=== PATIENT | female | born 1945 | race Caucasian/White ===

== ENCOUNTER 2022-11-02 05:44 | Inpatient (IN) | payer MEDICARE, BC ==
--- NOTE | 2022-11-02 06:29 | ED ---
Abdominal Pain HPI - General Chief Complaint: Abdominal Pain Stated Complaint: Kidney stones Time Seen by Provider: 11/02/22 05:51 Source: patient, EMS, RN notes reviewed Mode of arrival: EMS Limitations: no limitations - History of Present Illness Initial Comments: 77-year-old female presents emergency department via EMS from [facility] a transfer chief complaint of flank pain. Patient states that she started last night with flank pain states she does get cold she came very nauseated increasing pain. Patient states that she was shaking fever states that she cannot get warm. Patient present to [facility] was patient is found to have 3 mm UVJ stone patient is found to have temporal 100.5 and was leukopenic. Patient has no current chemotherapy treatment. Patient did have COVID-19 testing which was negative patient states she has history of Pulmonary fibrosis denies any cough. Patient states she does feel improved at this time pain is improved nausea is improving patient did receive IV antibiotics. - Related Data Allergies Allergy/AdvReac Type Severity Reaction Status Date / Time Penicillins Allergy Unknown Verified 11/02/22 05:57 cefaclor [From Ceclor] AdvReac Unknown Verified 11/02/22 05:58 Review of Systems ROS Statement: Those systems with pertinent positive or pertinent negative responses have been documented in the HPI. ROS Other: All systems not noted in ROS Statement are negative. Past Medical History Past Medical History: Atrial Fibrillation, Chest Pain / Angina, Diabetes Mellitus, Hyperlipidemia, Hypertension, Osteoarthritis (OA), Renal Disease, Sleep Apnea/CPAP/BIPAP Additional Past Medical History / Comment(s): pulmonary hypertension, History of Any Multi-Drug Resistant Organisms: None Reported Past Surgical History: Ablation, Hysterectomy, Pacemaker Past Psychological History: No Psychological Hx Reported Smoking Status: Never smoker Past Alcohol Use History: None Reported Past Drug Use History: None Reported General Exam Limitations: no limitations General appearance: alert, in no apparent distress Head exam: Present: atraumatic, normocephalic, normal inspection Eye exam: Present: normal appearance, PERRL, EOMI. Absent: scleral icterus, conjunctival injection, periorbital swelling ENT exam: Present: normal exam, normal oropharynx, mucous membranes moist Neck exam: Present: normal inspection, full ROM. Absent: tenderness, meningismus, lymphadenopathy Respiratory exam: Present: normal lung sounds bilaterally. Absent: respiratory distress, wheezes, rales, rhonchi, stridor Cardiovascular Exam: Present: regular rate, normal rhythm, normal heart sounds. Absent: systolic murmur, diastolic murmur, rubs, gallop, clicks GI/Abdominal exam: Present: soft, normal bowel sounds. Absent: distended, tenderness, guarding, rebound, rigid Back exam: Absent: CVA tenderness (R), CVA tenderness (L) Neurological exam: Present: alert Skin exam: Present: warm, dry, intact, normal color. Absent: rash Course Vital Signs 11/02/22 11/02/22 11/02/22 05:47 05:59 06:07 Temperature 98.5 F Pulse Rate 85 Respiratory 16 Rate Blood Pressure 105/74 O2 Sat by Pulse 95 Oximetry 11/02/22 11/02/22 11/02/22 06:22 06:39 07:08 Temperature Pulse Rate 79 Respiratory 21 Rate Blood Pressure 99/43 107/46 100/47 O2 Sat by Pulse 96 94 L Oximetry Medical Decision Making - Medical Decision Making Was pt. sent in by a medical professional or institution (, PA, TALCER, urgent care, hospital, or mcfp...) When possible be specific @ -Physician at [facility] Did you speak to anyone other than the patient for history (EMS, parent, family, police, friend...)? What history was obtained from this source @ -EMS, DR Reyes at [place] Did you review nursing and triage notes (agree or disagree)? Why? @ -I reviewed and agree with nursing and triage notes Were old charts reviewed (outside hosp., previous admission, EMS record, old EKG, old radiological studies, urgent care reports/EKG's, mcfp records)? Report findings @ -Review transfer packet Differential Diagnosis (chest pain, altered mental status, abdominal pain women, abdominal pain men, vaginal bleeding, weakness, fever, dyspnea, syncope, headache, dizziness, GI bleed, back pain, seizure, CVA, palpatations, mental health)? @ -Kidney stone, septic stone, viral fever, leukopenia, UTI, EKG interpreted by me (3pts min.). @ -none X-rays interpreted by me (1pt min.). @ -None done CT interpreted by me (1pt min.). @ -Outside CT from [place] shows a 3 mm UVJ stone U/S interpreted by me (1pt. min.). @ -None done What testing was considered but not performed or refused? (CT, X-rays, U/S, labs)? Why? @ -None What meds were considered but not given or refused? Why? @ -None Did you discuss the management of the patient with other professionals (professionals i.e. , PA, TALCER, lab, RT, psych nurse, community mental health social worker, sports lawyer, teacher, field crop technical officer, showcase maker)? Give summary @ -Dr. Langley hospitalist, urology Was smoking cessation discussed for >3mins.? @ -No Was critical care preformed (if so, how long)? @ -No Were there social determinants of health that impacted care today? How? (Homelessness, low income, unemployed, alcoholism, drug addiction, transportation, low edu. Level, literacy, decrease access to med. care, mcfp, rehab)? @ -No Was there de-escalation of care discussed even if they declined (Discuss DNR or withdrawal of care, Hospice)? DNR status @ -No What co-morbidities impacted this encounter? (DM, HTN, Smoking, COPD, CAD, Cancer, CVA, ARF, Chemo, Hep., AIDS, mental health diagnosis, sleep apnea, morbid obesity)? @ -Hypertension A. fib, diabetes Was patient admitted / discharged? Hospital course, mention meds given and route, prescriptions, significant lab abnormalities, going to OR and other pertinent info. @ -Admitted - patient was transferred from Hospital. Patient does have noted leukopenia, was febrile with evidence of kidney stone. Patient did have bacteria noted. Patient was given Levaquin will be admitted patient's had 2 sets of blood cultures prior arrival. Patient will be admitted to hospitalist with consultation urology Undiagnosed new problem with uncertain prognosis? @ -No Drug Therapy requiring intensive monitoring for toxicity (Heparin, Nitro, Insulin, Cardizem)? @ -No Were any procedures done? @ -No Diagnosis/symptom? @ -Fever Acute, or Chronic, or Acute on Chronic? @ acute Uncomplicated (without systemic symptoms) or Complicated (systemic symptoms)? @ -Uncomplicated Side effects of treatment? @ -No Exacerbation, Progression, or Severe Exacerbation? @ -No Poses a threat to life or bodily function? How? (Chest pain, USA, VT, pneumonia, PE, COPD, DKA, ARF, appy, cholecystitis, CVA, Diverticulitis, Homicidal, Suicidal, threat to staff... and all critical care pts) @ -No Diagnosis/symptom? @ -Ureter calculi Acute, or Chronic, or Acute on Chronic? @ -Acute Uncomplicated (without systemic symptoms) or Complicated (systemic symptoms)? @ -Uncomplicated Side effects of treatment? @ -none Exacerbation, Progression, or Severe Exacerbation @ -no Poses a threat to life or bodily function? @ -no Diagnosis/symptom? @ -Leukopenia Acute, or Chronic, or Acute on Chronic? @ -acute Uncomplicated (without systemic symptoms) or Complicated (systemic symptoms)? @ -complicated Side effects of treatment? @ -none Exacerbation, Progression, or Severe Exacerbation] @ -no Poses a threat to life or bodily function? @ -no Disposition Clinical Impression: Ureteral calculi, Fever, Leukopenia Disposition: ADMITTED IP TO THIS [facility] Condition: Poor Time of Disposition: 06:39
[2022-11-02] MEDS ORDERED: ACETAMINOPHEN TAB 325 MG TAB PO PRN (06:40)
[2022-11-02] MEDS ORDERED: ONDANSETRON 4 MG/2 ML VIAL IVP PRN (06:40)
[2022-11-02] MEDS ORDERED: NALOXONE 0.4 MG/ML 1 ML VIAL IV PRN (06:40)
[2022-11-02] MEDS: SODIUM CHLORIDE 0.9% 1,000 ML IV SCH ×2 (06:57→22:08)
[2022-11-02] MEDS ORDERED: LIDOCAINE 1% (10MG/ML) FOR IV START INTRADERMA PRN (08:24)
[2022-11-02 10:47] LABS: HGB 11.2 gm/dL (11.4-16.0); MCH 31.7 pg (25.0-35.0); MCV 96.1 fL (80.0-100.0); Mean Platelet Volume 9.1; RBC 3.54 m/uL (3.80-5.40); RDW 14.3 % (11.5-15.5); WBC 7.9 k/uL (3.8-10.6)
[2022-11-02 10:56] LABS: ALT 85 U/L (4-34); AST 160 U/L (14-36); African American GFR (CKD) 41 (>60 ml/min/1.73 sqM); Albumin 2.9 g/dL (3.5-5.0); Albumin/Globulin Ratio 1.1; Alkaline Phosphatase 43 U/L (38-126); Anion Gap 3 mmol/L; Blood Urea Nitrogen 24 mg/dL (7-17); Calcium 7.9 mg/dL (8.4-10.2); Carbon Dioxide 26 mmol/L (22-30); Chloride 109 mmol/L (98-107); Globulin 2.6 g/dL; Glucose 122 mg/dL (74-99); Non-African American GFR(CKD) 35 (>60 ml/min/1.73 sqM); Potassium 4.1 mmol/L (3.5-5.1); Sodium 138 mmol/L (137-145); Total Protein 5.5 g/dL (6.3-8.2)
[2022-11-02 11:05] LABS: Glucose,Whole Blood 138 mg/dL (70-110)
[2022-11-02] MEDS ORDERED: PROPOFOL 10 MG/ML 20 ML VIAL IV ONE (11:06)
[2022-11-02] MEDS ORDERED: LACTATED RINGERS 1,000 ML IV ONE (11:06)
[2022-11-02] MEDS ORDERED: LIDOCAINE 2% INJ 20 MG/ML (2 ML VIAL) ONE (11:06)
[2022-11-02] MEDS ORDERED: SUCCINYLCHOLINE CHLORIDE 200 MG/10 ML VIAL IV ONE (11:06)
--- NOTE | 2022-11-02 11:08 | P.GSCN ---
History of Present Illness Consult date: 11/02/22 Reason for Consult: UTI, left ureteral calculus Requesting physician: Bigg Langley History of present illness: The patient is a 77-year-old white female with an unremarkable urologic history. She believes she was treated for a UTI approximately 4 years ago. She denies any prior history of urolithiasis. Yesterday evening, she experienced acute onset of left lower back and flank pain, associated with fever and chills. She presented to the ER, and her evaluation revealed a UTI, leukopenia, and an obstructing 3 mm calculus at the left ureterovesical junction. CT scan also showed left renal calculi measuring up to 6 mm in size. She was transferred to [facility] for further management. Review of Systems - Constitutional Reports chills, Reports fever - Gastrointestinal Reports nausea, Denies vomiting - Genitourinary Genitourinary: Reports flank pain, Reports kidney stones, Denies dysuria, Denies hematuria Past Medical History Past Medical History: Atrial Fibrillation, Chest Pain / Angina, Diabetes Mellitus, Hyperlipidemia, Hypertension, Osteoarthritis (OA), Renal Disease, Sleep Apnea/CPAP/BIPAP Additional Past Medical History / Comment(s): pulmonary hypertension, History of Any Multi-Drug Resistant Organisms: None Reported Past Surgical History: Ablation, Hysterectomy, Pacemaker Type of Cardiac Device: Permanent Pacemaker Device Placement Date:: 2003 Past Psychological History: No Psychological Hx Reported Smoking Status: Never smoker Past Alcohol Use History: None Reported Past Drug Use History: None Reported - Past Family History Father Family Medical History: Asthma, Pneumonia Mother Family Medical History: Cancer Additional Family Medical History / Comment(s): alive 99, Skin CA Medications and Allergies Allergies Allergy/AdvReac Type Severity Reaction Status Date / Time Penicillins Allergy Unknown Verified 11/02/22 05:57 cefaclor [From Ceclor] AdvReac Unknown Verified 11/02/22 05:58 Surgical - Exam Vital Signs Temp Pulse Resp 98.5 F 85 16 11/02/22 05:47 11/02/22 05:47 11/02/22 05:47 - General well developed, well nourished, no distress - Respiratory normal respiratory effort - Abdomen Abdomen: soft, non tender, no guarding, no rigid, no rebound - Psychiatric oriented to time, oriented to person, oriented to place, speech is normal, memory intact Results - Labs 11/02/22 10:28 Abnormal Lab Results - Last 24 Hours (Table) 11/02/22 Range/Units 10:28 Chloride 109 H (98-107) mmol/L BUN 24 H (7-17) mg/dL Creatinine 1.44 H (0.52-1.04) mg/dL Glucose 122 H (74-99) mg/dL Calcium 7.9 L (8.4-10.2) mg/dL AST 160 H (14-36) U/L ALT 85 H (4-34) U/L Total Protein 5.5 L (6.3-8.2) g/dL Albumin 2.9 L (3.5-5.0) g/dL Diabetes panel 11/02/22 Range/Units 10:28 Sodium 138 (137-145) mmol/L Potassium 4.1 (3.5-5.1) mmol/L Chloride 109 H (98-107) mmol/L Carbon Dioxide 26 (22-30) mmol/L BUN 24 H (7-17) mg/dL Creatinine 1.44 H (0.52-1.04) mg/dL Glucose 122 H (74-99) mg/dL Calcium 7.9 L (8.4-10.2) mg/dL AST 160 H (14-36) U/L ALT 85 H (4-34) U/L Alkaline Phosphatase 43 (38-126) U/L Total Protein 5.5 L (6.3-8.2) g/dL Albumin 2.9 L (3.5-5.0) g/dL Calcium panel 11/02/22 Range/Units 10:28 Calcium 7.9 L (8.4-10.2) mg/dL Albumin 2.9 L (3.5-5.0) g/dL Pituitary panel 11/02/22 Range/Units 10:28 Sodium 138 (137-145) mmol/L Potassium 4.1 (3.5-5.1) mmol/L Chloride 109 H (98-107) mmol/L Carbon Dioxide 26 (22-30) mmol/L BUN 24 H (7-17) mg/dL Creatinine 1.44 H (0.52-1.04) mg/dL Glucose 122 H (74-99) mg/dL Calcium 7.9 L (8.4-10.2) mg/dL Adrenal panel 11/02/22 Range/Units 10:28 Sodium 138 (137-145) mmol/L Potassium 4.1 (3.5-5.1) mmol/L Chloride 109 H (98-107) mmol/L Carbon Dioxide 26 (22-30) mmol/L BUN 24 H (7-17) mg/dL Creatinine 1.44 H (0.52-1.04) mg/dL Glucose 122 H (74-99) mg/dL Calcium 7.9 L (8.4-10.2) mg/dL Total Bilirubin 1.0 (0.2-1.3) mg/dL AST 160 H (14-36) U/L ALT 85 H (4-34) U/L Alkaline Phosphatase 43 (38-126) U/L Total Protein 5.5 L (6.3-8.2) g/dL Albumin 2.9 L (3.5-5.0) g/dL - Imaging CT scan - abdomen: report reviewed CT scan - pelvis: report reviewed Assessment and Plan (1) Ureteral calculi Current Visit: Yes Status: Acute Code(s): N20.1 - CALCULUS OF URETER SNOMED Code(s): 35409886 (2) Hydronephrosis with renal and ureteral calculous obstruction Current Visit: Yes Status: Acute Code(s): N13.2 - HYDRONEPHROSIS WITH RENAL AND URETERAL CALCULOUS OBSTRUCTION SNOMED Code(s): 345478108 (3) Acute pyelonephritis Current Visit: Yes Status: Acute Code(s): N10 - ACUTE PYELONEPHRITIS SNOMED Code(s): 60678826 Plan: The patient appears to have UTI with sepsis complicated by the presence of an obstructing 3 mm left UVJ calculus. I have advised the patient to undergo cystoscopy with left ureteral stent insertion to relieve ureteral obstruction. The rationale for this was reviewed with the patient, as were potential risks which include anesthesia, bleeding, infection, inability to place the stent, and ureteral injury. She will remain hospitalized to receive IV antibiotics. Once the infection has cleared, in several weeks, she will undergo cystoscopy with left ureteral stent removal, left ureteroscopy with removal of ureteral and renal calculi. Time with Patient: Greater than 30
[2022-11-02 11:33] LABS: Platelet Count 85 k/uL (150-450)
--- NOTE | 2022-11-02 11:34 | P.OP ---
Date of Procedure: 11/02/22 Preoperative Diagnosis: Left hydronephrosis secondary to left ureteral calculus Postoperative Diagnosis: Same Procedure(s) Performed: Cystoscopy, left ureteral stent insertion Anesthesia: DAVY Surgeon: Marques Mccall Estimated Blood Loss (ml): 0 IV fluids (ml): 100 Pathology: none sent Condition: stable Disposition: PACU Indications for Procedure: The patient is a 77-year-old white female with an unremarkable urologic history. She believes she was treated for a UTI approximately 40 years ago. She denies any prior history of urolithiasis. Yesterday evening, she experienced acute onset of left lower back and flank pain, associated with fever and chills. She presented to the ER, and her evaluation revealed a UTI, leukopenia, and an obstructing 3 mm calculus at the left ureterovesical junction. CT scan also showed left renal calculi measuring up to 6 mm in size. She now comes for left ureteral stent placement. Operative Findings: Obstructing calculus at left ureterovesical junction. Description of Procedure: The patient was taken to the operating room and placed in the dorsolithotomy position, with legs supported in Hansel stirrups. The external genitalia was prepped and draped sterilely. The 30 lens was used to introduce the 22-Georgian Stortz cystoscopic sheath through the urethra and into the bladder under direct vision. The bladder was examined in its entirety. Both ureteral orifices were of normal anatomic location and configuration. No tumors were seen. A calculus was visualized at the left ureteral orifice. A 0.035 inch Glidewire was passed through the cystoscope. The left ureteral orifice was cannulated, and the Glidewire was slowly advanced up to the renal pelvis. A significant amount of the cloudy but nonpurulent urine drained out of the left ureter, alongside the Glidewire. A 22 cm, 6-Georgian double-J ureteral stent was placed over the wire. Proper stent positioning was verified fluoroscopically and endoscopically. The bladder was emptied and the cystoscope removed. The patient tolerated the procedure well was taken to the recovery room in stable condition.
[2022-11-02 11:35] LABS: Band Neutrophils % 10 %; Lymphocytes # (M) 0.08 k/uL (1.0-4.8); Monocytes # (M) 0.16 k/uL (0-1.0); Neutrophils % (M) 87 %; Nucleated Red Blood Cells 0 /100 WBC (0-0); Total Cells Counted 100
[2022-11-02 11:37] LABS: Toxic Granulation Present
[2022-11-02] MEDS ORDERED: LEVOFLOXACIN 500MG-D5W PMX 500 MG in DEXTROSE/WATER 1 100ML.BAG IVPB SCH (12:00)
[2022-11-02] MEDS: LACTATED RINGERS 1,000 ML IV SCH (12:03)
[2022-11-02 12:48] LABS: Glucose,Whole Blood 144 mg/dL (70-110)
[2022-11-02] MEDS ORDERED: CALCIUM CARBONATE 500 MG CHEWABLE PO PRN (14:14)
[2022-11-02] MEDS ORDERED: LACTULOSE 20 GM/30 ML CUP PO PRN (14:14)
[2022-11-02] MEDS ORDERED: MELATONIN 3 MG TABLET PO PRN (14:14)
[2022-11-02] MEDS ORDERED: LORazepam 0.5 MG TAB PO PRN (14:14)
[2022-11-02] MEDS ORDERED: WARFARIN 5 MG TAB PO SCH (14:15)
[2022-11-02 15:31] LABS: INR 3.7 (<1.2); Prothrombin Time 35.8 sec (9.0-12.0)
--- NOTE | 2022-11-02 16:09 | P.HPIM ---
History of Present Illness H&P Date: 11/02/22 Chief Complaint: Left flank pain This is a pleasant 77-year-old patient, was chronic stable medical conditions include atrial fibrillation, diabetes, hypertension, hyperlipidemia, osteoporosis, pulmonary hypertension, obstructive sleep apnea, permanent pacemaker. Yesterday evening patient started feeling uncomfortable in the left side of the belly. Pain progressively then became worse. W fever and chills. Some nausea. Presented to ER. Patient was transferred from [facility]. Patient was found to have 3 mm UP junction stone and therefore transferred here. Today patient underwent cystoscopy with left unilateral stent insertion by Dr. Patrick. Cloudy but nonproductive intermittent urine drained out of the left ureter. Postprocedure patient's left flank pain is much improved. Review of systems: GEN.: Fever chills EYES: None HEENT: None NECK: None RESPIRATORY: None CARDIOVASCULAR: None GASTROINTESTINAL: As above GENITOURINARY: None MUSCULOSKELETAL: Joint pains LYMPHATICS: None HEMATOLOGICAL: None PSYCHIATRY: None NEUROLOGICAL: Does use a cane Past medical history to include: Atrial fibrillation, diabetes, hypertension, hyperlipidemia, prostatitis, I sleep apnea, some pulmonary hypertension, permanent pacemaker Social history: Lives with her daughter. Does use a cane. No history of alcohol or smoking. Physical examination: VITAL SIGNS: 98.1, 74, 14, 84/49, 94% room air GENERAL: BMI 42.2, declining but awake, slightly tired. EYES: Pupils equal. Conjunctiva normal. HEENT: External appearance of nose and ears normal, oral cavity grossly normal. NECK: JVD not raised; masses not palpable. HEART: Heart sounds regular no edema. LUNGS: Respiratory rate normal; clear to auscultation. ABDOMEN: Soft, minimal left flank tenderness, liver spleen not palpable, no masses palpable. PSYCH: Alert and oriented x3; mood and affect normal. MUSCULOSKELETAL:No Clubbing/cyanosis;muscles-grossly intact, OA NEUROLOGICAL: Cranial nerves grossly intact; no facial asymmetry, power and sensation grossly intact. LYMPHATICS: No lymph nodes palpable in the axilla and neck INVESTIGATIONS, reviewed in the clinical context: White count 7.9 hemoglobin 11.2 platelets 85 potassium 4.1 BUN 24 creatinine 1.44 blood glucose 122 AST 160 ALT 85 Assessment and plan: -Left UV junction 3 mm stone resulting in patient fever or chills nausea vomi ting. Dr. Patrick urology did extract the stone and a left ureter stent was placed. IV Levaquin. -Hyperuricemia Allopurinol 200 mg a day -Hyperlipidemia Lipitor 20 mg daily at bedtime -Peripheral neuropathy Neurontin -History of atrial fibrillation Sotalol, Coumadin Status post live unit dose stone extraction and stent placement. IV Levaquin. Home medications resumed. Coumadin per pharmacy. Discussed with patient. Past Medical History Past Medical History: Atrial Fibrillation, Chest Pain / Angina, Diabetes Mellitus, Hyperlipidemia, Hypertension, Osteoarthritis (OA), Renal Disease, Sleep Apnea/CPAP/BIPAP Additional Past Medical History / Comment(s): pulmonary hypertension, History of Any Multi-Drug Resistant Organisms: None Reported Past Surgical History: Ablation, Hysterectomy, Pacemaker Type of Cardiac Device: Permanent Pacemaker Device Placement Date:: 2003 Past Psychological History: No Psychological Hx Reported Smoking Status: Never smoker Past Alcohol Use History: None Reported Past Drug Use History: None Reported - Past Family History Father Family Medical History: Asthma, Pneumonia Mother Family Medical History: Cancer Additional Family Medical History / Comment(s): alive 99, Skin CA Medications and Allergies Home Medications Medication Instructions Recorded Confirmed Type Alendronate Sodium [Fosamax] 70 mg PO SCOTT 11/02/22 11/02/22 History Cholecalciferol [Vitamin D3 (25 50 mcg PO HS@202911/02/22 11/02/22 History Mcg = 1000 Iu)] Diclofenac Sodium Gel [Voltaren 2 - 4 gm TOPICAL QID PRN 11/02/22 11/02/22 History Gel] Folic Acid 1 mg PO DAILY 11/02/22 11/02/22 History Gabapentin 300 mg PO DAILY@1200 11/02/22 11/02/22 History Gabapentin 600 mg PO BID@09,202911/02/22 11/02/22 History Glucosam/Chond/Hyalu/Cf Borate 1 tab PO W/SUPPER 11/02/22 11/02/22 History [Move Free Joint Health Tablet] Krill Oil 1,000 mg PO BID-W/MEALS 11/02/22 11/02/22 History Loratadine [Claritin] 10 mg PO W/SUPPER 11/02/22 11/02/22 History Magnesium Oxide 400 mg PO BID-W/MEALS 11/02/22 11/02/22 History Mirabegron [Myrbetriq] 50 mg PO DAILY 11/02/22 11/02/22 History Multivitamins, Thera [Multivitamin 1 tab PO W/SUPPER 11/02/22 11/02/22 History (formulary)] Simvastatin [Zocor] 40 mg PO HS 11/02/22 11/02/22 History Sotalol HCl [Betapace] 120 mg PO BID-W/MEALS 11/02/22 11/02/22 History Vitamin B Complex 1 cap PO W/SUPPER 11/02/22 11/02/22 History Vitamin E 268 mg PO W/SUPPER 11/02/22 11/02/22 History Warfarin [Coumadin] 5 mg PO MOTUWETHFR 11/02/22 11/02/22 History Warfarin [Coumadin] 7.5 mg PO SUSA 11/02/22 11/02/22 History allopurinoL 200 mg PO DAILY 11/02/22 11/02/22 History calcium polycarbophiL [Fiber-Lax] 1,250 mg PO HS@202911/02/22 11/02/22 History sitaGLIPtin [Januvia] 100 mg PO DAILY 11/02/22 11/02/22 History traZODone HCL [Desyrel] 25 - 50 mg PO HS@202911/02/22 11/02/22 History Allergies Allergy/AdvReac Type Severity Reaction Status Date / Time Penicillins Allergy Unknown Verified 11/02/22 11:08 cefaclor [From Ceclor] AdvReac Unknown Verified 11/02/22 11:08 Physical Exam Vitals: Vital Signs Temp Pulse Pulse Resp BP BP Pulse Ox 11/02/22 10:03 84/46 11/02/22 09:25 98.1 F 74 14 84/49 94 L 11/02/22 07:57 98.6 F 80 19 110/50 94 L 11/02/22 07:08 79 21 100/47 94 L 11/02/22 06:39 107/46 96 11/02/22 06:22 99/43 11/02/22 06:07 105/74 11/02/22 05:59 95 11/02/22 05:47 98.5 F 85 16 Intake and Output 11/01/22 11/02/22 11/02/22 22:59 06:59 14:59 Other: Voiding Method Toilet Weight 107.955 kg 107.955 kg Results CBC & Chem 7: 11/02/22 10:28 11/02/22 10:28 Labs: Abnormal Lab Results - Last 24 Hours (Table) 11/02/22 Range/Units 10:28 Chloride 109 H (98-107) mmol/L BUN 24 H (7-17) mg/dL Creatinine 1.44 H (0.52-1.04) mg/dL Glucose 122 H (74-99) mg/dL Calcium 7.9 L (8.4-10.2) mg/dL AST 160 H (14-36) U/L ALT 85 H (4-34) U/L Total Protein 5.5 L (6.3-8.2) g/dL Albumin 2.9 L (3.5-5.0) g/dL Thrombosis Risk Factor Assmnt - Choose All That Apply Any of the Below Risk Factors Present?: No Each Risk Factor Represents 3 Points: Age 75 years or older Thrombosis Risk Factor Assessment Total Risk Factor Score: 3 Thrombosis Risk Factor Assessment Level: Moderate Risk
[2022-11-02] MEDS: allopurinoL 100 MG TAB PO SCH (16:15)
[2022-11-02] MEDS: SOTALOL 120 MG TAB PO SCH (16:16)
[2022-11-02] MEDS: LORATADINE 10 MG TAB PO SCH (16:16)
[2022-11-02 17:29] LABS: Glucose,Whole Blood 128 mg/dL (70-110)
[2022-11-02] MEDS ORDERED: NON FORMULARY DRUG (Vitamin B Complex [Vitamin B Complex] 1 EACH Capsule) PO SCH (17:30)
[2022-11-02] MEDS ORDERED: WARFARIN 0.5 MG TAB PO ONE (18:00)
[2022-11-02 20:50] LABS: Glucose,Whole Blood 129 mg/dL (70-110)
[2022-11-02] MEDS: CHOLECALCIFEROL 25 MCG (1000 IU) TABLET PO SCH (22:08)
[2022-11-02] MEDS: ATORVASTATIN 20 MG TAB PO SCH (22:08)
[2022-11-02] MEDS: GABAPENTIN 300 MG CAP PO SCH (22:08)
[2022-11-03 05:22] LABS: Basophils % (A) 0 %; Eosinophils % (A) 0 %; HCT 34.1 % (34.0-46.0); HGB 11.2 gm/dL (11.4-16.0); Lymphocytes # (A) 0.9 k/uL (1.0-4.8); Lymphocytes % (A) 5 %; MCH 31.8 pg (25.0-35.0); MCHC 32.9 g/dL (31.0-37.0); MCV 96.8 fL (80.0-100.0); Mean Platelet Volume 10.2; Monocytes # (A) 0.8 k/uL (0-1.0); Monocytes % (A) 5 %; Neutrophils # (A) 15.3 k/uL (1.3-7.7); Neutrophils % (A) 89 %; RBC 3.53 m/uL (3.80-5.40); RDW 14.3 % (11.5-15.5); WBC 17.1 k/uL (3.8-10.6)
[2022-11-03 05:26] LABS: INR 3.4 (<1.2); Prothrombin Time 33.5 sec (9.0-12.0)
[2022-11-03 05:32] LABS: African American GFR (CKD) 25 (>60 ml/min/1.73 sqM); Anion Gap 3 mmol/L; Blood Urea Nitrogen 41 mg/dL (7-17); Calcium 7.8 mg/dL (8.4-10.2); Carbon Dioxide 26 mmol/L (22-30); Chloride 108 mmol/L (98-107); Glucose 121 mg/dL (74-99); Non-African American GFR(CKD) 22 (>60 ml/min/1.73 sqM); Potassium 4.7 mmol/L (3.5-5.1); Sodium 137 mmol/L (137-145)
[2022-11-03 05:35] LABS: Platelet Count 74 k/uL (150-450)
[2022-11-03] MEDS ORDERED: MORPHINE SULFATE 2 MG/ML SYRINGE IV PRN (07:00)
[2022-11-03] MEDS ORDERED: ONDANSETRON 4 MG/2 ML VIAL IVP PRN (07:00)
[2022-11-03] MEDS ORDERED: PATIENT'S OWN (Alendronate Sodium [Fosamax] 70 MG Tablet) PO SCH (07:00)
[2022-11-03 07:49] LABS: Glucose,Whole Blood 113 mg/dL (70-110)
[2022-11-03] MEDS: allopurinoL 100 MG TAB PO SCH (08:59)
[2022-11-03] MEDS: GABAPENTIN 300 MG CAP PO SCH ×3 (08:59→22:01)
[2022-11-03] MEDS: FOLIC ACID 1 MG TAB PO SCH (08:59)
[2022-11-03] MEDS: PATIENT'S OWN (Mirabegron [Myrbetriq] 50 MG Tab.Er.24h) PO SCH (09:00)
[2022-11-03] MEDS: SOTALOL 120 MG TAB PO SCH ×2 (09:00→17:31)
[2022-11-03] MEDS: LACTATED RINGERS 1,000 ML IV SCH (09:00)
--- NOTE | 2022-11-03 09:18 | P.PN ---
Progress Note - Text Progress Note Date: 11/03/22 Mrs. Palm underwent left ureteral stent placement yesterday to relieve obstruction caused by a 3 mm UVJ calculus. She initially presented to [facility] and was transferred to [facility]. Her WBC count at [place] was 1.9, but it was 7.9 upon arrival to [facility] and has risen to 17.1 today. Likewise, her serum creatinine level there was 0.9, but it was 1.44 yesterday and 2.14 today. Blood cultures were sent at [place], and a urine culture was obtained yesterday following stent placement. She received a dose of Levaquin in [place] prior to transfer, and continues to receive this pending the culture results. She states that her pain is much improved today, though she continues to experience weakness and fatigue. It is my expectation that her laboratory values will normalize over the course of the next 72 hours. I would suggest she continue to receive Levaquin pending the culture results. She will undergo elective cystoscopy, left ureteral stent removal, left ureteroscopy with laser lithotripsy and stone basketing in several weeks, after her infection has resolved.
[2022-11-03] MEDS: HYDROcodone/APAP 5-325MG 1 EACH TAB PO PRN ×2 (10:55→22:13)
[2022-11-03] MEDS: SODIUM CHLORIDE 0.9% 1,000 ML IV SCH ×3 (10:56→22:21)
[2022-11-03 12:59] LABS: Glucose,Whole Blood 90 mg/dL (70-110)
[2022-11-03] MEDS: LEVOFLOXACIN 250MG-D5W PMX 250 MG in DEXTROSE/WATER 1 50ML.BAG IVPB SCH (14:03)
[2022-11-03] MEDS: LORATADINE 10 MG TAB PO SCH (17:31)
[2022-11-03 17:48] LABS: Glucose,Whole Blood 85 mg/dL (70-110)
[2022-11-03] MEDS ORDERED: WARFARIN 0.5 MG TAB PO ONE (18:00)
[2022-11-03 20:54] LABS: Glucose,Whole Blood 111 mg/dL (70-110)
--- NOTE | 2022-11-03 21:08 | FL ---
Intraoperative/procedural fluoroscopic services were provided. Total fluoroscopy time is 3 seconds wi th a total of 1 submitted images to PACS. Please see the operative/procedural note for further detail s.
[2022-11-03] MEDS: ATORVASTATIN 20 MG TAB PO SCH (22:01)
[2022-11-03] MEDS: CHOLECALCIFEROL 25 MCG (1000 IU) TABLET PO SCH (22:02)
--- NOTE | 2022-11-03 22:06 | P.PN ---
Progress Note - Text Progress Note Date: 11/03/22 Chief Complaint: Left flank pain This is a pleasant 77-year-old patient, was chronic stable medical conditions include atrial fibrillation, diabetes, hypertension, hyperlipidemia, osteoporosis, pulmonary hypertension, obstructive sleep apnea, permanent pacemaker. Yesterday evening patient started feeling uncomfortable in the left side of the belly. Pain progressively then became worse. W fever and chills. Some nausea. Presented to ER. Patient was transferred from [facility]. Patient was found to have 3 mm UP junction stone and therefore transferred here. Today patient underwent cystoscopy with left unilateral stent insertion by Dr. Patrick. Cloudy but nonproductive intermittent urine drained out of the left ureter. Postprocedure patient's left flank pain is much improved. November 03: Does feel weak and tired. No fever today. Some left flank pain. Some worsening of creatinine. IV fluids increased. Encourage oral intake. IV Levaquin. Active Medications Acetaminophen (Acetaminophen Tab 325 Mg Tab) 650 mg PO Q6HR PRN PRN Reason: Mild Pain or Fever > 100.5 Hydrocodone Bitart/Acetaminophen (Hydrocodone/Apap 5-325mg 1 Each Tab) 1 each PO Q4HR PRN PRN Reason: Moderate Pain (Scale 4 to 6) Last Admin: 11/03/22 10:55 Dose: 1 each Allopurinol (Allopurinol 100 Mg Tab) 200 mg PO DAILY [facility] Last Admin: 11/03/22 08:59 Dose: 200 mg Atorvastatin Calcium (Atorvastatin 20 Mg Tab) 20 mg PO [facility] Last Admin: 11/02/22 22:08 Dose: 20 mg Calcium Carbonate/Glycine (Calcium Carbonate 500 Mg Chewable) 1,000 mg PO Q4HR PRN PRN Reason: Dyspepsia Calcium Polycarbophil (Calcium Polycarbophil 625 Mg Tab) 1,250 mg PO HS@2029 [facility] Last Admin: 11/02/22 22:08 Dose: 1,250 mg Cholecalciferol (Cholecalciferol 25 Mcg (1000 Iu) Tablet) 50 mcg PO HS@2029 [facility] Last Admin: 11/02/22 22:08 Dose: 50 mcg Folic Acid (Folic Acid 1 Mg Tab) 1 mg PO DAILY [facility] Last Admin: 11/03/22 08:59 Dose: 1 mg Gabapentin (Gabapentin 300 Mg Cap) 300 mg PO DAILY@1200 [facility] Last Admin: 11/03/22 14:03 Dose: 300 mg Gabapentin (Gabapentin 300 Mg Cap) 600 mg PO BID@0900,2030 [facility] Last Admin: 11/03/22 08:59 Dose: 600 mg Sodium Chloride (Saline 0.9%) 1,000 mls @ 125 mls/hr IV .Q8H [facility] Last Admin: 11/03/22 17:39 Dose: 125 mls/hr Lactated Ringer's (Lactated Ringers) 1,000 mls @ 20 mls/hr IV .Q24H [facility] Last Admin: 11/03/22 09:00 Dose: Not Given Levofloxacin/Dextrose 250 mg/ (IV Solution) 50 mls @ 50 mls/hr IVPB Q24H [facility] Last Admin: 11/03/22 14:03 Dose: 50 mls/hr Lactulose (Lactulose 20 Gm/30 Ml Cup) 20 gm PO DAILY PRN PRN Reason: Constipation Lidocaine HCl (Lidocaine 1% (10mg/Ml) For Iv Start) 0.1 ml INTRADERMA PER PROTOCOL PRN PRN Reason: IV Start Loratadine (Loratadine 10 Mg Tab) 10 mg PO W/SUPPER [facility] Last Admin: 11/03/22 17:31 Dose: 10 mg Lorazepam (Lorazepam 0.5 Mg Tab) 0.5 mg PO Q6HR PRN PRN Reason: Anxiety Melatonin (Melatonin 3 Mg Tablet) 3 mg PO HS PRN PRN Reason: Insomnia Miscellaneous Information (Warfarin Per Pharmacy) 0 each MISCELLANE DIRECTED PRN PRN Reason: INR Morphine Sulfate (Morphine Sulfate 2 Mg/Ml Syringe) 2 mg IV Q5M PRN PRN Reason: Phase 1 or 2 - Pain Control Stop: 11/03/22 23:00 Naloxone HCl (Naloxone 0.4 Mg/Ml 1 Ml Vial) 0.2 mg IV Q2M PRN PRN Reason: Opioid Reversal Patient's Own ( Alendronate Sodium [ Fosamax] 70 Mg Tablet) 70 mg PO SCOTT [facility] Last Admin: 11/03/22 09:00 Dose: Not Given Patient's Own ( Mirabegron [ Myrbetriq] 50 Mg Tab .Er.24h) 50 mg PO DAILY [facility] Last Admin: 11/03/22 09:00 Dose: Not Given Ondansetron HCl (Ondansetron 4 Mg/2 Ml Vial) 4 mg IVP Q8HR PRN PRN Reason: Nausea And Vomiting Ondansetron HCl (Ondansetron 4 Mg/2 Ml Vial) 4 mg IVP ONCE PRN PRN Reason: Phase 1 or 2 - Nausea/Vomiting Stop: 11/03/22 23:00 Sotalol HCl (Sotalol 120 Mg Tab) 120 mg PO BID-W/MEALS [facility] Last Admin: 11/03/22 17:31 Dose: 120 mg Past medical history to include: Atrial fibrillation, diabetes, hypertension, hyperlipidemia, prostatitis, I sleep apnea, some pulmonary hypertension, permanent pacemaker Social history: Lives with her daughter. Does use a cane. No history of alcohol or smoking. Physical examination: VITAL SIGNS: 98.1, 74, 14, 84/49, 94% room air GENERAL: Reclining in bed tired EYES: Pupils equal. Conjunctiva normal. HEENT: External appearance of nose and ears normal, oral cavity grossly normal. NECK: JVD not raised; masses not palpable. HEART: Heart sounds regular no edema. LUNGS: Respiratory rate normal; clear to auscultation. ABDOMEN: Soft, some left flank tenderness, liver spleen not palpable, no masses palpable. PSYCH: Alert and oriented x3; mood and affect normal. MUSCULOSKELETAL:No Clubbing/cyanosis;muscles-grossly intact, OA INVESTIGATIONS, reviewed in the clinical context: November 03: White count 17.1 hemoglobin 11.2 potassium 4.7 BUN 41 creatinine 2.14 INR 3.4 White count 7.9 hemoglobin 11.2 platelets 85 potassium 4.1 BUN 24 creatinine 1.44 blood glucose 122 AST 160 ALT 85 Assessment and plan: -Left UV junction 3 mm stone resulting in patient fever or chills nausea vomiting. Dr. Patrick urology did extract the stone and a left ureter stent was placed. IV Levaquin. -Acute kidney injury, suspect ATN from infection: New diagnosis Continue IV fluids 1 25 mL an hour. No renal offensive medications. -Hyperuricemia Allopurinol 200 mg a day -Hyperlipidemia Lipitor 20 mg daily at bedtime -Peripheral neuropathy Neurontin -History of atrial fibrillation Sotalol, Coumadin Continue IV fluids. IV Levaquin. Encourage oral intake. Discussed with patient.
[2022-11-04 07:04] LABS: Basophils % (A) 0 %; Eosinophils # (A) 0.1 k/uL (0-0.7); Eosinophils % (A) 1 %; HCT 34.1 % (34.0-46.0); HGB 11.2 gm/dL (11.4-16.0); Lymphocytes # (A) 1.6 k/uL (1.0-4.8); Lymphocytes % (A) 11 %; MCH 31.7 pg (25.0-35.0); MCHC 32.9 g/dL (31.0-37.0); MCV 96.2 fL (80.0-100.0); Mean Platelet Volume 9.7; Monocytes # (A) 0.5 k/uL (0-1.0); Monocytes % (A) 3 %; Neutrophils # (A) 12.8 k/uL (1.3-7.7); Neutrophils % (A) 84 %; RBC 3.54 m/uL (3.80-5.40); RDW 14.6 % (11.5-15.5); WBC 15.3 k/uL (3.8-10.6)
[2022-11-04 07:13] LABS: Platelet Count 86 k/uL (150-450)
[2022-11-04 07:15] LABS: INR 1.7 (<1.2); Prothrombin Time 16.4 sec (9.0-12.0)
[2022-11-04 07:32] LABS: Glucose,Whole Blood 97 mg/dL (70-110)
[2022-11-04 07:49] VITALS: RESP 16
[2022-11-04 07:58] LABS: African American GFR (CKD) 48 (>60 ml/min/1.73 sqM); Anion Gap 3 mmol/L; Blood Urea Nitrogen 35 mg/dL (7-17); Carbon Dioxide 25 mmol/L (22-30); Chloride 109 mmol/L (98-107); Glucose 75 mg/dL (74-99); Non-African American GFR(CKD) 41 (>60 ml/min/1.73 sqM); Potassium 3.9 mmol/L (3.5-5.1); Sodium 137 mmol/L (137-145)
--- NOTE | 2022-11-04 08:35 | P.PN ---
Progress Note - Text Progress Note Date: 11/04/22 Mrs. Palm's left sided discomfort has resolved, but she continues to report fatigue. She is afebrile with stable vital signs. Her WBC and creatinine levels are improved today at 15.3 and 1.26, respectively. A urine culture here is pending. Blood cultures were done at [facility] prior to transfer, and an attempt will be made to obtain these records.
[2022-11-04] MEDS: LACTATED RINGERS 1,000 ML IV SCH (09:10)
[2022-11-04] MEDS: FOLIC ACID 1 MG TAB PO SCH (09:10)
[2022-11-04] MEDS: GABAPENTIN 300 MG CAP PO SCH ×3 (09:10→20:33)
[2022-11-04] MEDS: allopurinoL 100 MG TAB PO SCH (09:10)
[2022-11-04] MEDS: PATIENT'S OWN (Mirabegron [Myrbetriq] 50 MG Tab.Er.24h) PO SCH (09:11)
[2022-11-04] MEDS: SOTALOL 120 MG TAB PO SCH ×2 (09:11→17:44)
[2022-11-04] MEDS: SODIUM CHLORIDE 0.9% 1,000 ML IV SCH ×2 (09:13→20:33)
[2022-11-04 11:24] LABS: Glucose,Whole Blood 135 mg/dL (70-110)
[2022-11-04] MEDS: LEVOFLOXACIN 250MG-D5W PMX 250 MG in DEXTROSE/WATER 1 50ML.BAG IVPB SCH (13:10)
[2022-11-04] MEDS ORDERED: WARFARIN 5 MG TAB PO SCH (14:12)
--- NOTE | 2022-11-04 14:34 | CDI ---
Documentation Clarification Form Date: 11/04/2022 1:53:16 PM From: Zonia Becker RN CCDS Admit Date: 11/02/2022 6:41:00 AM Patient Name: Karen Palm Visit Number: [id number] Discharge Date: ATTENTION: The Clinical Documentation Specialists (CDI) and [facility] Coding Staff appreciate your assistance in clarifying documentation. Please respond to the clarification below the line at the bottom and electronically sign. The CDI & [facility] Coding staff will review the response and follow-up if needed. Please note: Queries are made part of the Legal Health Record. If you have any questions, please contact the author of this message via ITS. Dr. Bigg Langley Sepsis is documented in the Urology consult, 11/02. Based on this information and the findings below, is there an additional diagnosis that is clinically appropriate for this patient? History/Risk Factors: 77-year-old female The patient developed left sided abdominal pain with fever, chills and nausea. The patient presents to the ED as a transfer from [facility]. Found to have 3mm UP junction stone, leukopenic and a Temporal temperature of 100.5. ED note, 11/02. Clinical Indicators: WBC: 11/02 7.9 Urine cultures:11/02 No growth after 18 hours Vitals signs: 11/02 B/P 105/74, HR 85, Temp 98.5 F, RR 16 SpO2 95% room air. Treatment: Antibiotics: 11/03 Levofloxacin IVPB Q24H IV Fluids: 125cc/h Is there an additional diagnosis that is clinically appropriate for this patient? [ ] Sepsis ruled out [+ ] Sepsis present on admission [ ] Other, please specify [ ] Unable to determine SIRS Criteria: 2 or more of the following may indicate SIRS Temperature < 96.8F (36C) or > 101.0F (38.3C) Heart Rate > 90 bpm Respiratory Rate > 20 breaths/min or PaCO2 < 32 mmHg White Blood Cell Count > 12,000 or < 4,000 cells/mm3 or > 10% bands (Template Last Reviewed: October 2022) ALLAN
[2022-11-04 17:42] LABS: Glucose,Whole Blood 167 mg/dL (70-110)
[2022-11-04] MEDS: LORATADINE 10 MG TAB PO SCH (17:44)
[2022-11-04] MEDS ORDERED: WARFARIN 5 MG TAB PO ONE (18:00)
--- NOTE | 2022-11-04 19:52 | P.PN ---
Progress Note - Text Progress Note Date: 11/04/22 Chief Complaint: Left flank pain This is a pleasant 77-year-old patient, was chronic stable medical conditions include atrial fibrillation, diabetes, hypertension, hyperlipidemia, osteoporosis, pulmonary hypertension, obstructive sleep apnea, permanent pacemaker. Yesterday evening patient started feeling uncomfortable in the left side of the belly. Pain progressively then became worse. W fever and chills. Some nausea. Presented to ER. Patient was transferred from [facility]. Patient was found to have 3 mm UP junction stone and therefore transferred here. Today patient underwent cystoscopy with left unilateral stent insertion by Dr. Patrick. Cloudy but nonproductive intermittent urine drained out of the left ureter. Postprocedure patient's left flank pain is much improved. November 03: Does feel weak and tired. No fever today. Some left flank pain. Some worsening of creatinine. IV fluids increased. Encourage oral intake. IV Levaquin. November 04: Feeling a bit better. Eating some. Creatinine coming down. IV fluids IV Levaquin. Encourage to ambulate. Past medical history to include: Atrial fibrillation, diabetes, hypertension, hyperlipidemia, prostatitis, I sleep apnea, some pulmonary hypertension, permanent pacemaker Social history: Lives with her daughter. Does use a cane. No history of alcohol or smoking. Physical examination: VITAL SIGNS: 98.1, 74, 14, 84/49, 94% room air GENERAL: Reclining in bed tired EYES: Pupils equal. Conjunctiva normal. HEENT: External appearance of nose and ears normal, oral cavity grossly normal. NECK: JVD not raised; masses not palpable. HEART: Heart sounds regular no edema. LUNGS: Respiratory rate normal; clear to auscultation. ABDOMEN: Soft, some left flank tenderness, liver spleen not palpable, no masses palpable. PSYCH: Alert and oriented x3; mood and affect normal. MUSCULOSKELETAL:No Clubbing/cyanosis;muscles-grossly intact, OA INVESTIGATIONS, reviewed in the clinical context: November 03: White count 17.1 hemoglobin 11.2 potassium 4.7 BUN 41 creatinine 2.14 INR 3.4 White count 7.9 hemoglobin 11.2 platelets 85 potassium 4.1 BUN 24 creatinine 1.44 blood glucose 122 AST 160 ALT 85 Assessment and plan: -Left UV junction 3 mm stone resulting in patient fever or chills nausea vomiting. Dr. Patrick urology did extract the stone and a left ureter stent was placed. IV Levaquin. -Acute kidney injury, suspect ATN from infection: New diagnosis Continue IV fluids 1 25 mL an hour. No renal offensive medications. -Hyperuricemia Allopurinol 200 mg a day -Hyperlipidemia Lipitor 20 mg daily at bedtime -Peripheral neuropathy Neurontin -History of atrial fibrillation Sotalol, Coumadin Continue IV fluids. IV Levaquin. Encourage oral intake. Discussed with patient. Repeat labs.
[2022-11-04 20:29] LABS: Glucose,Whole Blood 162 mg/dL (70-110)
[2022-11-04] MEDS: CHOLECALCIFEROL 25 MCG (1000 IU) TABLET PO SCH (20:33)
[2022-11-04] MEDS: ATORVASTATIN 20 MG TAB PO SCH (20:33)
[2022-11-05] MEDS: SODIUM CHLORIDE 0.9% 1,000 ML IV SCH ×2 (06:09→11:04)
[2022-11-05 07:24] LABS: African American GFR (CKD) 73 (>60 ml/min/1.73 sqM); Anion Gap 2 mmol/L; Blood Urea Nitrogen 22 mg/dL (7-17); Calcium 8.2 mg/dL (8.4-10.2); Carbon Dioxide 27 mmol/L (22-30); Chloride 110 mmol/L (98-107); Glucose 104 mg/dL (74-99); Non-African American GFR(CKD) 63 (>60 ml/min/1.73 sqM); Potassium 3.8 mmol/L (3.5-5.1); Sodium 139 mmol/L (137-145)
[2022-11-05 07:32] LABS: INR 1.4 (<1.2); Prothrombin Time 14.5 sec (9.0-12.0)
[2022-11-05 07:44] LABS: Glucose,Whole Blood 128 mg/dL (70-110)
[2022-11-05] MEDS: FOLIC ACID 1 MG TAB PO SCH (08:47)
[2022-11-05] MEDS: allopurinoL 100 MG TAB PO SCH (08:47)
[2022-11-05] MEDS: GABAPENTIN 300 MG CAP PO SCH ×2 (08:47→12:40)
[2022-11-05] MEDS: LACTATED RINGERS 1,000 ML IV SCH (08:48)
[2022-11-05] MEDS: PATIENT'S OWN (Mirabegron [Myrbetriq] 50 MG Tab.Er.24h) PO SCH (08:48)
[2022-11-05] MEDS: SOTALOL 120 MG TAB PO SCH (08:48)
[2022-11-05 10:30] VITALS: BMI 42.1
[2022-11-05 11:23] LABS: Glucose,Whole Blood 126 mg/dL (70-110)
--- NOTE | 2022-11-05 12:33 | XR ---
EXAMINATION TYPE: XR chest 2V DATE OF EXAM: 11/05/2022 COMPARISON: Outside radiograph dated 11/02/2022 HISTORY: Increased shortness of breath TECHNIQUE: Frontal and lateral views of the chest are obtained. FINDINGS: The heart is moderately enlarged but stable. Dual lead pacemaker with generator over the l eft chest. Calcifications of the aortic arch. No pulmonary vascular congestion. Blunting of the left costophrenic angle with minimal strandy opacities. No acute osseous abnormality. IMPRESSION: Overall relatively stable chest without acute abnormality or finding to explain increase d shortness of breath. Tiny left basilar pleural effusion and/or atelectasis.
[2022-11-05] MEDS: LEVOFLOXACIN 250MG-D5W PMX 250 MG in DEXTROSE/WATER 1 50ML.BAG IVPB SCH (12:38)
[2022-11-05 12:51] VITALS: BP 171/80; PULSE 61; TEMP 98.2
[2022-11-05] MEDS ORDERED: WARFARIN 5 MG TAB PO ONE (18:00)
--- NOTE | 2022-11-05 21:39 | P.DS ---
Providers Date of admission: 11/02/22 06:41 Expected date of discharge: 11/05/22 Attending physician: Bigg Langley Consults: 11/02/22 06:40 Consult Physician Routine Consulting Provider: Marques Mccall Consult Reason/Comments: Ureteral calculi Do you want consulting provider notified?: Yes Primary care physician: [facility] Course: Chief Complaint: Left flank pain This is a pleasant 77-year-old patient, was chronic stable medical conditions include atrial fibrillation, diabetes, hypertension, hyperlipidemia, osteoporosis, pulmonary hypertension, obstructive sleep apnea, permanent pacemaker. Yesterday evening patient started feeling uncomfortable in the left side of the belly. Pain progressively then became worse. W fever and chills. Some nausea. Presented to ER. Patient was transferred from [facility]. Patient was found to have 3 mm UP junction stone and therefore transferred here. Today patient underwent cystoscopy with left unilateral stent insertion by Dr. Patrick. Cloudy but nonproductive intermittent urine drained out of the left ureter. Postprocedure patient's left flank pain is much improved. November 03: Does feel weak and tired. No fever today. Some left flank pain. Some worsening of creatinine. IV fluids increased. Encourage oral intake. IV Levaquin. November 04: Feeling a bit better. Eating some. Creatinine coming down. IV fluids IV Levaquin. Encourage to ambulate. November 05: Feeling well. Creatinine back to normal. Complete 7 days of Levaquin. Afebrile. Urine culture negative. Breathing well. Discussion and discharge planning more than 35 minutes Past medical history to include: Atrial fibrillation, diabetes, hypertension, hyperlipidemia, prostatitis, I sleep apnea, some pulmonary hypertension, permanent pacemaker Social history: Lives with her daughter. Does use a cane. No history of alcohol or smoking. Physical examination: VITAL SIGNS: 98.2, 61, 16, 95% room air GENERAL: Comfortable EYES: Pupils equal. Conjunctiva normal. HEENT: External appearance of nose and ears normal, oral cavity grossly normal. NECK: JVD not raised; masses not palpable. HEART: Heart sounds regular no edema. LUNGS: Respiratory rate normal; clear to auscultation. ABDOMEN: Soft, some left flank tenderness, liver spleen not palpable, no masses palpable. PSYCH: Alert and oriented x3; mood and affect normal. MUSCULOSKELETAL:No Clubbing/cyanosis;muscles-grossly intact, OA INVESTIGATIONS, reviewed in the clinical context: November 04: Creatinine 0.89 November 03: White count 17.1 hemoglobin 11.2 potassium 4.7 BUN 41 creatinine 2.14 INR 3.4 White count 7.9 hemoglobin 11.2 platelets 85 potassium 4.1 BUN 24 creatinine 1.44 blood glucose 122 AST 160 ALT 85 Assessment and plan: -Left UV junction 3 mm stone resulting in patient fever or chills nausea vomiting. Dr. Patrick urology did extract the stone and a left ureter stent was placed. IV Levaquin. Levaquin 250 mg a day for 7 days -Acute kidney injury, suspect ATN from infection: Corrected Continue IV fluids 1 25 mL an hour. No renal offensive medications. -Hyperuricemia Allopurinol 200 mg a day -Hyperlipidemia Lipitor 20 mg daily at bedtime -Peripheral neuropathy Neurontin -History of atrial fibrillation Sotalol, Coumadin Disposition: Home Plan - Discharge Summary Discharge Rx Participant: No New Discharge Prescriptions: New Levofloxacin [Levaquin] 250 mg PO 1200 #7 tab Continue Vitamin E 268 mg PO W/SUPPER Cholecalciferol [Vitamin D3 (25 Mcg = 1000 Iu)] 50 mcg PO HS@2030 calcium polycarbophiL [Fiber-Lax] 1,250 mg PO HS@2030 Simvastatin [Zocor] 40 mg PO HS Mirabegron [Myrbetriq] 50 mg PO DAILY allopurinoL 200 mg PO DAILY Warfarin [Coumadin] 5 mg PO MOTUWETHFR Warfarin [Coumadin] 7.5 mg PO SUSA Diclofenac Sodium Gel [Voltaren Gel] 2 - 4 gm TOPICAL QID PRN PRN Reason: knee pain Multivitamins, Thera [Multivitamin (formulary)] 1 tab PO W/SUPPER Glucosam/Chond/Hyalu/Cf Borate [Move Free Joint Health Tablet] 1 tab PO W/SUPPER Vitamin B Complex 1 cap PO W/SUPPER Sotalol HCl [Betapace] 120 mg PO BID-W/MEALS Magnesium Oxide 400 mg PO BID-W/MEALS Loratadine [Claritin] 10 mg PO W/SUPPER traZODone HCL [Desyrel] 25 - 50 mg PO HS@2030 Gabapentin 300 mg PO DAILY@1200 Gabapentin 600 mg PO BID@0900,2030 sitaGLIPtin [Januvia] 100 mg PO DAILY Folic Acid 1 mg PO DAILY Alendronate Sodium [Fosamax] 70 mg PO SCOTT No Action Krill Oil 1,000 mg PO BID-W/MEALS Discharge Medication List Alendronate Sodium [Fosamax] 70 mg PO SCOTT 11/02/22 [History] Cholecalciferol [Vitamin D3 (25 Mcg = 1000 Iu)] 50 mcg PO HS@202911/02/22 [History] Diclofenac Sodium Gel [Voltaren Gel] 2 - 4 gm TOPICAL QID PRN 11/02/22 [History] Folic Acid 1 mg PO DAILY 11/02/22 [History] Gabapentin 300 mg PO DAILY@1200 11/02/22 [History] Gabapentin 600 mg PO BID@899,202911/02/22 [History] Glucosam/Chond/Hyalu/Cf Borate [Move Free Joint Health Tablet] 1 tab PO W/SUPPER 11/02/22 [History] Krill Oil 1,000 mg PO BID-W/MEALS 11/02/22 [History] Loratadine [Claritin] 10 mg PO W/SUPPER 11/02/22 [History] Magnesium Oxide 400 mg PO BID-W/MEALS 11/02/22 [History] Mirabegron [Myrbetriq] 50 mg PO DAILY 11/02/22 [History] Multivitamins, Thera [Multivitamin (formulary)] 1 tab PO W/SUPPER 11/02/22 [History] Simvastatin [Zocor] 40 mg PO HS 11/02/22 [History] Sotalol HCl [Betapace] 120 mg PO BID-W/MEALS 11/02/22 [History] Vitamin B Complex 1 cap PO W/SUPPER 11/02/22 [History] Vitamin E 268 mg PO W/SUPPER 11/02/22 [History] Warfarin [Coumadin] 5 mg PO MOTUWETHFR 11/02/22 [History] Warfarin [Coumadin] 7.5 mg PO SUSA 11/02/22 [History] allopurinoL 200 mg PO DAILY 11/02/22 [History] calcium polycarbophiL [Fiber-Lax] 1,250 mg PO HS@202911/02/22 [History] sitaGLIPtin [Januvia] 100 mg PO DAILY 11/02/22 [History] traZODone HCL [Desyrel] 25 - 50 mg PO HS@11/02/23 [History] Levofloxacin [Levaquin] 250 mg PO 1200 #7 tab 11/05/22 [Rx] Follow up Appointment(s)/Referral(s): Marques Mccall MD [STAFF PHYSICIAN] - 12/03/22 2:40 pm Ruy Medina PAC [REFERRING] - 1 Week (Patient prefers to make own appt. with PCP.) None,Stated [REFERRING] - 1-2 days Patient Instructions/Handouts: Levofloxacin (By mouth), Kidney Stones (DC), Ureteral Stent Placement (DC) Activity/Diet/Wound Care/Special Instructions: Follow-up with Urology as scheduled. Limit activity until follow-up. Take all of your antibiotics. One pill daily starting tomorrow-11/06/22. Discharge Disposition: HOME SELF-CARE
[2022-11-06] MEDS ORDERED: LEVOFLOXACIN 250 MG TAB PO SCH (12:00)
== END 2022-11-05 14:29 | disposition home or self-care (01) | DRG 853 ==
LOC: EC 05:44 → 5NMEDONC 06:41
PROVIDERS: ADMIT Hospitalist; ATTEND Hospitalist
PROC: 0T778DZ Dilation of Left Ureter with Intraluminal Device, Via Natural or Artificial Opening Endoscopic (ICD-10-PCS; principal; 2022-11-02 08:28)
DX: A41.9 Sepsis, unspecified organism (principal); N17.0 Acute kidney failure with tubular necrosis; N13.6 Pyonephrosis; D72.819 Decreased white blood cell count, unspecified; Z20.822 Contact with and (suspected) exposure to COVID-19; M81.0 Age-related osteoporosis without current pathological fracture; J84.10 Pulmonary fibrosis, unspecified; I48.91 Unspecified atrial fibrillation; I27.20 Pulmonary hypertension, unspecified; I10 Essential (primary) hypertension; E79.0 Hyperuricemia without signs of inflammatory arthritis and tophaceous disease; E78.5 Hyperlipidemia, unspecified; G47.33 Obstructive sleep apnea (adult) (pediatric); E11.42 Type 2 diabetes mellitus with diabetic polyneuropathy; Z95.0 Presence of cardiac pacemaker; Z88.0 Allergy status to penicillin; Z88.1 Allergy status to other antibiotic agents; Z79.899 Other long term (current) drug therapy; Z79.84 Long term (current) use of oral hypoglycemic drugs; Z79.83 Long term (current) use of bisphosphonates; Z79.01 Long term (current) use of anticoagulants
CPT/HCPCS: 71046; 80048; 80053; 84145; 85025; 85610; 87086; 93005; 94760; 96360; 99285

== ENCOUNTER 2023-11-30 02:35 | Inpatient (IN) | payer MEDICARE, BC ==
--- NOTE | 2023-11-30 03:11 | ED ---
General Adult HPI - General Chief complaint: Fall Stated complaint: FALL Time Seen by Provider: 11/30/23 02:43 Source: patient Mode of arrival: EMS Limitations: no limitations - History of Present Illness Initial comments: Dictation was produced using [employer] dictation software. please excuse any grammatical, word or spelling errors. Chief Complaint: 78-year-old female transferred from outside emergency department for right hip fracture History of Present Illness: Patient 78-year-old female with multiple comorbidities. She states that at approximately 9:30 PM last night she fell after tripping. She landed on her right hip. She was brought to [facility] where she was found to have a intertrochanteric right hip fracture. Patient requested to [facility] to be transferred to our facility for right hip replacement done by Dr. Light. Patient is familiar to Dr. Light because he performed the orthopedic surgeries for several of her close family members. Patient denies any numbness tingling paresthesias to the right hip. The ROS documented in this emergency department record has been reviewed and confirmed by me. Those systems with pertinent positive or negative responses have been documented in the HPI. All other systems are other negative and/or noncontributory. - Related Data Home Medications Medication Instructions Recorded Confirmed Alendronate Sodium [Fosamax] 70 mg PO SCOTT 11/02/22 11/21/22 Cholecalciferol [Vitamin D3 (25 50 mcg PO HS@202911/02/22 11/21/22 Mcg = 1000 Iu)] Diclofenac Sodium Gel [Voltaren 1% 2 - 4 gm TOPICAL QID PRN 11/02/22 11/21/22 Gel] Folic Acid 1 mg PO DAILY 11/02/22 11/21/22 Gabapentin 300 mg PO DAILY@1200 11/02/22 11/21/22 Gabapentin 600 mg PO BID@899,202911/02/22 11/21/22 Glucosam/Chond/Hyalu/Cf Borate 1 tab PO W/SUPPER 11/02/22 11/21/22 [Move Free Joint Health Tablet] Krill Oil 1,000 mg PO BID-W/MEALS 11/02/22 11/21/22 Loratadine [Claritin] 10 mg PO W/SUPPER 11/02/22 11/21/22 Magnesium Oxide 400 mg PO BID-W/MEALS 11/02/22 11/21/22 Mirabegron [Myrbetriq] 50 mg PO DAILY 11/02/22 11/21/22 Multivitamins, Thera [Multivitamin 1 tab PO W/SUPPER 11/02/22 11/21/22 (formulary)] Simvastatin [Zocor] 40 mg PO HS 11/02/22 11/21/22 Sotalol HCl [Betapace] 120 mg PO BID-W/MEALS 11/02/22 11/21/22 Vitamin B Complex 1 cap PO W/SUPPER 11/02/22 11/21/22 Vitamin E 268 mg PO W/SUPPER 11/02/22 11/21/22 Warfarin [Coumadin] 5 mg PO MOTUWETHFR 11/02/22 11/19/22 Warfarin [Coumadin] 7.5 mg PO SUSA 11/02/22 11/19/22 allopurinoL 200 mg PO DAILY 11/02/22 11/21/22 sitaGLIPtin [Januvia] 100 mg PO DAILY 11/02/22 11/21/22 traZODone HCL [Desyrel] 25 - 50 mg PO HS@2030 11/02/22 11/21/22 Furosemide [Lasix] 20 mg PO QAM 11/19/22 11/21/22 amLODIPine [Norvasc] 5 mg PO QAM 11/19/22 11/21/22 Allergies Allergy/AdvReac Type Severity Reaction Status Date / Time Penicillins Allergy swelling, Verified 11/30/23 02:42 arms and hands reddened and itching cefaclor [From Ceclor] AdvReac swelling, Verified 11/30/23 02:42 arms and hands reddened and itching levofloxacin [From Levaquin] AdvReac Dyspnea Verified 11/30/23 02:42 Review of Systems ROS Statement: Those systems with pertinent positive or pertinent negative responses have been documented in the HPI. ROS Other: All systems not noted in ROS Statement are negative. Past Medical History Past Medical History: Atrial Fibrillation, Chest Pain / Angina, Heart Failure, Diabetes Mellitus, Hyperlipidemia, Hypertension, Osteoarthritis (OA), Renal Disease, Sleep Apnea/CPAP/BIPAP Additional Past Medical History / Comment(s): left kidney stones,. pulmonary hypertension. incontinent of urine History of Any Multi-Drug Resistant Organisms: None Reported Past Surgical History: Cardiac Ablation, Hysterectomy, Pacemaker Additional Past Surgical History / Comment(s): cystoscopy w/ left ureter stent placed,[employer] Pacemaker left chest Past Anesthesia/Blood Transfusion Reactions: No Reported Reaction Additional Past Anesthesia/Blood Transfusion Reaction / Comment(s): no hx blood transfusions Type of Cardiac Device: Permanent Pacemaker Device Placement Date:: 2003 Past Psychological History: No Psychological Hx Reported Smoking Status: Former smoker - Past Family History Father Family Medical History: Congestive Heart Failure (CHF), COPD, Pneumonia Additional Family Medical History / Comment(s): emphysema Mother Family Medical History: Cancer Additional Family Medical History / Comment(s): alive 99, Skin CA,spine CA-dx Oct 2022 General Exam - General Exam Comments Initial Comments: PHYSICAL EXAM: General Impression: Alert and oriented x3, not in acute distress HEENT: Normocephalic atraumatic, extra-ocular movements intact, pupils equal and reactive to light bilaterally, mucous membranes moist. Cardiovascular: Heart regular rate and rhythm Chest: Able to complete full sentences, no retractions, no tachypnea Abdomen: abdomen soft, non-tender, non-distended, no organomegaly Musculoskeletal: Pulses present and equal in all extremities, no peripheral edema Motor: no focal deficits noted Neurological: CN II-XII grossly intact, no focal motor or sensory deficits noted Skin: Intact with no visualized rashes Psych: Normal affect and mood Limitations: no limitations Course Vital Signs 11/30/23 02:44 Temperature 98.7 F Pulse Rate 80 Respiratory 18 Rate Blood Pressure 144/67 O2 Sat by Pulse 95 Oximetry Medical Decision Making - Medical Decision Making Was pt. sent in by a medical professional or institution (PRINCESS Rich, ENTERTAINER OR VARIETY ARTIST, urgent care, hospital, or fci...) When possible be specific @ -Spoke with ER physician from [facility] Did you speak to anyone other than the patient for history (EMS, parent, family, police, friend...)? What history was obtained from this source @ -See above Did you review nursing and triage notes (agree or disagree)? Why? @ -I reviewed and agree with nursing and triage notes Were old charts reviewed (outside hosp., previous admission, EMS record, old EKG, old radiological studies, urgent care reports/EKG's, fci records)? Report findings @ -No old charts were reviewed Differential Diagnosis (chest pain, altered mental status, abdominal pain women, abdominal pain men, vaginal bleeding, musculoskeletal, weakness, fever, dyspnea, syncope, headache, dizziness, GI bleed, back pain, seizure, CVA, palpatations, mental health)? @ -Not applicable EKG interpreted by me (3pts min.). @ -None done X-rays interpreted by me (1pt min.). @ -None done CT interpreted by me (1pt min.). @ -None done U/S interpreted by me (1pt. min.). @ -None done What testing was considered but not performed or refused? (CT, X-rays, U/S, labs)? Why? @ -None What meds were considered but not given or refused? Why? @ -None Did you discuss the management of the patient with other professionals (professionals i.e. , PA, ENTERTAINER OR VARIETY ARTIST, lab, RT, psych nurse, social studies department chair, acute care physician, teacher, safety instruction police officer, case fitter)? Give summary @ -Case discussed with Dr. Hall for admission Was smoking cessation discussed for >3mins.? @ -No Was critical care preformed (if so, how long)? @ -No Were there social determinants of health that impacted care today? How? (Homelessness, low income, unemployed, alcoholism, drug addiction, transportation, low edu. Level, literacy, decrease access to med. care, senior living, rehab)? @ -No Was there de-escalation of care discussed even if they declined (Discuss DNR or withdrawal of care, Hospice)? DNR status @ -No What co-morbidities impacted this encounter? (DM, HTN, Smoking, COPD, CAD, Cancer, CVA, ARF, Chemo, Hep., AIDS, mental health diagnosis, sleep apnea, morbid obesity)? @ -None Was patient admitted / discharged? Hospital course, mention meds given and route, prescriptions, significant lab abnormalities, going to OR and other pertinent info. @ -78-year-old female transferred to our facility per request. She was diagnosed with a right hip fracture secondary to mechanical fall. Vital signs stable. Patient well-appearing at the bedside. Case discussed with orthopedic surgery who is willing to accept patient's care for admission. Medicine will be consulted as well. Undiagnosed new problem with uncertain prognosis? @ -No Drug Therapy requiring intensive monitoring for toxicity (Heparin, Nitro, Insulin, Cardizem)? @ -No Were any procedures done? @ -No Diagnosis/symptom? Acute, or Chronic, or Acute on Chronic? Uncomplicated (without systemic symptoms) or Complicated (systemic symptoms)? @ -Right hip fracture Side effects of treatment? @ -No Exacerbation, Progression, or Severe Exacerbation? @ -No Poses a threat to life or bodily function? How? (Chest pain, USA, AL, pneumonia, PE, COPD, DKA, ARF, appy, cholecystitis, CVA, Diverticulitis, Homicidal, Suicidal, threat to staff... and all critical care pts) @ -yes Disposition Clinical Impression: Hip fracture Disposition: ADMITTED IP TO THIS HOSP Condition: Fair Referrals: Ruy Weir MD [Primary Care Provider] - 1-2 days Decision Time: 03:24
[2023-11-30] MEDS ORDERED: NALOXONE 0.4 MG/ML 1 ML VIAL IV PRN ×2 (03:25→14:56)
[2023-11-30] MEDS: SODIUM CHLORIDE 0.9% 1,000 ML IV SCH (03:50)
[2023-11-30] MEDS: ONDANSETRON 4 MG/2 ML VIAL IVP PRN (03:51)
[2023-11-30] MEDS: HYDROmorphone 1 MG/ML 1 ML SYRINGE IVP PRN (03:51)
[2023-11-30 04:02] LABS: Basophils % (A) 0 %; Eosinophils # (A) 0.1 k/uL (0-0.7); Eosinophils % (A) 1 %; HCT 36.8 % (34.0-46.0); HGB 12.1 gm/dL (11.4-16.0); Lymphocytes # (A) 0.9 k/uL (1.0-4.8); Lymphocytes % (A) 11 %; MCH 32.2 pg (25.0-35.0); MCHC 32.9 g/dL (31.0-37.0); MCV 97.9 fL (80.0-100.0); Mean Platelet Volume 7.8; Monocytes # (A) 0.5 k/uL (0-1.0); Monocytes % (A) 6 %; Neutrophils # (A) 6.9 k/uL (1.3-7.7); Neutrophils % (A) 82 %; Platelet Count 142 k/uL (150-450); RBC 3.76 m/uL (3.80-5.40); RDW 14.1 % (11.5-15.5); WBC 8.5 k/uL (3.8-10.6)
[2023-11-30 04:12] LABS: INR 2.6 (<1.2); Partial Thromboplastin Time 33.3 sec (22.0-30.0); Prothrombin Time 25.9 sec (10.0-12.5)
[2023-11-30 04:13] LABS: African American GFR (CKD) >90 (>60 ml/min/1.73 sqM); Anion Gap 3 mmol/L; Blood Urea Nitrogen 16 mg/dL (7-17); Calcium 8.8 mg/dL (8.4-10.2); Carbon Dioxide 29 mmol/L (22-30); Chloride 108 mmol/L (98-107); Glucose 154 mg/dL (74-99); Non-African American GFR(CKD) 86 (>60 ml/min/1.73 sqM); Potassium 3.9 mmol/L (3.5-5.1); Sodium 140 mmol/L (137-145)
--- NOTE | 2023-11-30 05:01 | XR ---
EXAM: XR Chest, 1 View CLINICAL HISTORY: ITS.REASON XR Reason: preop TECHNIQUE: Frontal view of the chest. COMPARISON: CT dated 11/05/2022 FINDINGS: Lungs: Chronic lung markings are seen bilaterally. Mild prominence of the pulmonary vasculature. No consolidation. Pleural space: Unremarkable. No pneumothorax. Heart: Stable enlargement of the cardiac silhouette. Mediastinum: Unremarkable. Normal mediastinal contour. Bones/joints: Degenerative changes are seen within the spine and shoulders. No acute fracture. Tubes, lines and devices: Cardiac connecting device overlies the left chest wall with 2 leads overlying the cardiac silhouette. IMPRESSION: No acute findings in the chest.
[2023-11-30] MEDS ORDERED: DEXTROSE 50% SYRINGE 50 ML IVP PRN ×2 (07:34)
--- NOTE | 2023-11-30 08:15 | P.HPOR ---
History of Present Illness H&P Date: 11/30/23 The patient is a very pleasant 78-year-old they know of multiple medical problems who was transferred to our facility with a right hip fracture. According to the patient she is helping her daughter will cover from a total knee replacement. Last night she went to get a glass of water and fell on her right side. She had immediate pain and inability to ambulate. She is brought to an outside ER where x-rays showed a displaced intertrochanteric hip fracture. She was transferred to our facility and admitted under my care. I met with the patient this morning she is complaining of isolated pain in her right hip. She lives at home and uses a cane to ambulate at baseline. She denies any pre-ex isting right hip pain. Past Medical History Past Medical History: Atrial Fibrillation, Chest Pain / Angina, Heart Failure, Diabetes Mellitus, Hyperlipidemia, Hypertension, Osteoarthritis (OA), Renal Disease, Sleep Apnea/CPAP/BIPAP Additional Past Medical History / Comment(s): left kidney stones,. pulmonary hypertension. incontinent of urine History of Any Multi-Drug Resistant Organisms: None Reported Past Surgical History: Cardiac Ablation, Hysterectomy, Pacemaker Additional Past Surgical History / Comment(s): cystoscopy w/ left ureter stent placed,[employer] Pacemaker left chest Past Anesthesia/Blood Transfusion Reactions: No Reported Reaction Additional Past Anesthesia/Blood Transfusion Reaction / Comment(s): no hx blood transfusions Type of Cardiac Device: Permanent Pacemaker Device Placement Date:: 2003 Past Psychological History: No Psychological Hx Reported Smoking Status: Former smoker - Past Family History Father Family Medical History: Congestive Heart Failure (CHF), COPD, Pneumonia Additional Family Medical History / Comment(s): emphysema Mother Family Medical History: Cancer Additional Family Medical History / Comment(s): alive 99, Skin CA,spine CA-dx Oct 2022 Medications and Allergies Home Medications Medication Instructions Recorded Confirmed Type Alendronate Sodium [Fosamax] 70 mg PO SCOTT 11/02/22 11/21/22 History Cholecalciferol [Vitamin D3 (25 50 mcg PO HS@202911/02/22 11/21/22 History Mcg = 1000 Iu)] Diclofenac Sodium Gel [Voltaren 1% 2 - 4 gm TOPICAL QID PRN 11/02/22 11/21/22 History Gel] Folic Acid 1 mg PO DAILY 11/02/22 11/21/22 History Gabapentin 300 mg PO DAILY@1200 11/02/22 11/21/22 History Gabapentin 600 mg PO BID@899,202911/02/22 11/21/22 History Glucosam/Chond/Hyalu/Cf Borate 1 tab PO W/SUPPER 11/02/22 11/21/22 History [Move Free Joint Health Tablet] Krill Oil 1,000 mg PO BID-W/MEALS 11/02/22 11/21/22 History Loratadine [Claritin] 10 mg PO W/SUPPER 11/02/22 11/21/22 History Magnesium Oxide 400 mg PO BID-W/MEALS 11/02/22 11/21/22 History Mirabegron [Myrbetriq] 50 mg PO DAILY 11/02/22 11/21/22 History Multivitamins, Thera [Multivitamin 1 tab PO W/SUPPER 11/02/22 11/21/22 History (formulary)] Simvastatin [Zocor] 40 mg PO HS 11/02/22 11/21/22 History Sotalol HCl [Betapace] 120 mg PO BID-W/MEALS 11/02/22 11/21/22 History Vitamin B Complex 1 cap PO W/SUPPER 11/02/22 11/21/22 History Vitamin E 268 mg PO W/SUPPER 11/02/22 11/21/22 History Warfarin [Coumadin] 5 mg PO MOTUWETHFR 11/02/22 11/19/22 History Warfarin [Coumadin] 7.5 mg PO SUSA 11/02/22 11/19/22 History allopurinoL 200 mg PO DAILY 11/02/22 11/21/22 History sitaGLIPtin [Januvia] 100 mg PO DAILY 11/02/22 11/21/22 History traZODone HCL [Desyrel] 25 - 50 mg PO HS@202911/02/22 11/21/22 History Furosemide [Lasix] 20 mg PO QAM 11/19/22 11/21/22 History amLODIPine [Norvasc] 5 mg PO QAM 11/19/22 11/21/22 History Allergies Allergy/AdvReac Type Severity Reaction Status Date / Time Penicillins Allergy swelling, Verified 11/30/23 02:42 arms and hands reddened and itching cefaclor [From Ceclor] AdvReac swelling, Verified 11/30/23 02:42 arms and hands reddened and itching levofloxacin [From Levaquin] AdvReac Dyspnea Verified 11/30/23 02:42 Physical Examination Patient is resting comfortably in her bed. She is alert and able to answer questions. Her head is normocephalic and atraumatic. She images nonlabored breathing with symmetric chest expansion. Her abdomen is obese. Her cervical spine is nontender to palpation. She has palpable peripheral pulses. She is morbidly obese. Her bilateral upper extremities and left lower extremity are without deformity and nontender to palpation. A focused examination of the right lower extremity was conducted. On inspection the leg is shortened and externally rotated. It is obese but there are no overlying skin lesions. Her thigh and calf are soft. Her foot is warm and well-perfused. She is able to actively plantarflex and dorsiflex her ankle and her toes. Results X-rays from [facility] of the pelvis and right hip show a displaced intertrochanteric hip fracture - Labs Labs: Abnormal Lab Results - Last 24 Hours (Table) 11/30/23 11/30/23 11/30/23 Range/Units 03:38 03:38 03:38 RBC 3.76 L (3.80-5.40) m/uL Plt Count 142 L (150-450) k/uL Lymphocytes # 0.9 L (1.0-4.8) k/uL PT 25.9 H (10.0-12.5) sec INR 2.6 H (<1.2) APTT 33.3 H (22.0-30.0) sec Chloride 108 H (98-107) mmol/L Glucose 154 H (74-99) mg/dL H & H 11/30/23 Range/Units 03:38 Hgb 12.1 (11.4-16.0) gm/dL Hct 36.8 (34.0-46.0) % Coagulation 11/30/23 Range/Units 03:38 INR 2.6 H (<1.2) Result Diagrams: 11/30/23 03:38 11/30/23 03:38 Assessment and Plan Assessment: Right intertrochanteric hip fracture Morbid obesity with BMI 40.7 Multiple medical problems Plan: I note the patient this morning discuss treatment of her hip fracture. My recommendation was to proceed with a short intramedullary hip screw once she is medically cleared by internal medicine. We discussed the pros and cons of surgery at length. The patient understands that she is at an elevated risk of having a complication given her morbid obesity and multiple medical problems. We'll plan on surgery later today once he is cleared by internal medicine. She will remain strictly nothing by mouth and on bedrest until surgery. I appreciate internal medicine's assistance with preoperative clearance and perioperative medical management. Time with Patient: Greater than 30
[2023-11-30 09:57] LABS: Glucose,Whole Blood 149 mg/dL (70-110)
--- NOTE | 2023-11-30 10:03 | P.CONS ---
History of Present Illness - Reason for Consult Consult date: 11/30/23 Medical Clearance and Medical Management Requesting physician: Surya Hall - History of Present Illness History of Presenting Illness: Patient is a very pleasant 78-year-old female with a past medical history of CAD status post permanent pacemaker placement in 2003, congestive heart failure, paroxysmal atrial fibrillation status postcardiac ablation on anticoagulation with Coumadin, hypertension, hyperlipidemia, pulmonary hypertension, obstructive sleep apnea CPAP dependent, and type II sfr-ielhqki-abvoenjqr diabetes mellitus. She was transferred to our facility from [facility] secondary to intertrochanteric right hip fracture resulting from mechanical trip and fall. She is currently admitted under orthopedic surgery team with Dr. Hall and we were consulted for medical clearance and medical management throughout her hospitalization. Vital signs reviewed. Blood pressure currently 144/77, heart rate 72, respiratory rate 18, temp 98.1 F, and SpO2 of 96% on room air. Morning labs reviewed. CBC showing stable hemoglobin of 12.1 and mild thrombocytopenia with platelet count of 142. Coagulation profile shows therapeutic INR at 2.6 (which is therapeutic for patient's goal level however places patient at increased risk of bleeding during and after surgical procedure). BMP showing mild hyperchloremia with chloride of 108 and hyperglycemia with glucose of 154 otherwise unremarkable. EKG completed showing sinus rhythm at 76 bpm with nonspecific T wave abnormalities but showing no significant T wave or ST abnormalities concerning for acute ischemia. Chest x- ray reviewed and was negative for acute cardiopulmonary process. Patient seen and fully evaluated at bedside. She reports this was a mechanical trip and fall while walking to her kitchen to get a glass of water resulting in her tripping and landing directly onto her right hip and immediately experiencing pain. She denies hitting her head or having any loss of consciousness during fall. She denies experiencing any dizziness/lig htheadedness, chest pain, or palpitations prior to or after fall. Currently patient reports pain to right hip but denies having any numbness/tingling in right lower extremity. Posterior tibial and pedal pulse intact. Cap refill less than 2 seconds, right foot warm. Patient denies having any headache, lightheadedness, dizziness, chest pain, palpitations, shortness of breath, abdominal pain, nausea, or vomiting. Review of systems: Pertinent positives and negatives as discussed in HPI, a complete review of systems was performed and all other systems are negative. Physical exam: Vital signs reviewed and stable. General: Nontoxic, no distress and appears stated age. Obese. Derm: Skin warm and dry, normal coloration for ethnicity. Head: Atraumatic, normocephalic and symmetric. Eyes: EOMs intact, no lid lag, and anicteric sclera Mouth: no lip lesions, mucus membranes moist Cardiovascular: regular rate and rhythm with normal S1S2, soft systolic murmur, positive posterior tibial pulses bilaterally, and cap refill < 2 seconds. Pacemaker left anterior chest. Lungs: Respirations even, regular, and unlabored on room air. Lungs CTA bilaterally, no rhonchi, no rales, no wheezing, and no accessory muscle usage. Abdominal: soft, nontender to palpation, no guarding, no appreciable organomegaly Ext: No gross muscle atrophy, no edema, no contractures. Movement and sensation intact. Patient with right lower extremity lateral rotation and shortening. Neuro: Speech clear, face symmetrical and CN II-XII grossly intact with no noted focal neuro deficits Psych: Alert and oriented to person, place, time, and situation. Appropriate and pleasant affect. Assessment and Plan of Care: Pre-operative Medical Clearance Right intertrochanteric femoral fracture -NSQIP Surgical Risk Score was calculated patient is at a very high risk to undergo any surgical procedure secondary to her extensive history including CAD with permanent pacemaker placement, hypertension requiring medication management, diabetes, and pulmonary fibrosis along with other comorbidities. She is at an above average risk for serious complications at 9.6% with average risk of 8.5%, above average risk for development of pneumonia at 2.3% with average risk of 1.5%, above average risk for cardiac complication at 1.4% with average risk of 1.2%, above average risk for urinary tract infection at 3.2% w ith average risk of 2.4%, above average risk of renal failure at 1.1% with average risk of 0.7%, and an average risk for at 2.1% with average of 3.3%. -METS score > 4. Patient walks with a cane at baseline, but is able to independently complete all of her activities of daily living. She reports ability to walk greater than 1-2 blocks without difficulties and is able to ambulate upstairs, slowly but without significant difficulties. Patient states when she had this trip and fall she was actually at home caring for her daughter who just had a knee replacement. -In addition to above surgical risk scores, patient is also at increased risk of bleeding secondary to daily anticoagulant use with Coumadin and current INR of 2.6. *NSQIP risk of MACE estimates patient at very high risk to undergo surgical intervention and is at an above average risk of 9.6% for serious complications undergoing surgical procedure. However, these risks were thoroughly explained to the patient up to an including cardiac and respiratory arrest, she verbalized understanding of these risks and is thoroughly in agreement to proceed with surgical intervention. Due to the urgent need for surgical repair of right intertrochanteric femoral fracture and increased risk of mortality in delaying procedure, despite the increased risk of cardiac and other complications, there are no absolute contraindications to undergo surgery from a medical standpoint at this time. CAD status post permanent pacemaker placement in 2003 Congestive heart failure Paroxysmal atrial fibrillation status postcardiac ablation on anticoagulation with Coumadin Hypertension Hyperlipidemia -EKG completed showing sinus rhythm at 76 bpm with nonspecific T wave abnormalities but showing no significant T wave or ST abnormalities concerning for acute ischemia upon personal review and interpretation. -Patient to continue daily medication regimen with amlodipine 10 mg daily, atorvastatin 20 mg daily, and sotalol 120 mg twice daily. -Patient may resume daily Lasix 20 mg orally tomorrow morning. -Coumadin held pending surgical repair of right intertrochanteric femur fracture. Recommend resumption of anticoagulation once cleared by primary admitting orthopedic surgery team to resume. Pulmonary hypertension Pulmonary fibrosis Obstructive sleep apnea CPAP dependent -Chest x-ray reviewed and was negative for acute cardiopulmonary process. -Order placed for CPAP nightly and while napping. -Order placed for DuoNebs as needed for shortness of breath and/or wheezing. -Order placed for incentive spirometry, encourage use 10-15 times hourly while awake. Type II ibl-wehoybv-ltqrdpecj diabetes mellitus. -Hold oral hypoglycemic Januvia and patient placed on glycemic protocol with NovoLog sliding scale. Data and imaging reviewed: As stated above in HPI. Thank you for allowing us to participate in the care of this pleasant patient. Do not hesitate to contact us with questions. Someone can be reached from the [facility] hospitalist group all hours of the day at [phone] or via [employer] serve. Patient was seen independently by Nurse Practitioner. This document was prepared using [employer] dictation software. Please allow for errors in lead security officer while rare they do occur. This patient was seen independently by Janet VOLTAGE REGULATOR ASSEMBLER. I agree with the assessment and plan done by my colleague. Past Medical History Past Medical History: Atrial Fibrillation, Chest Pain / Angina, Heart Failure, Diabetes Mellitus, Hyperlipidemia, Hypertension, Osteoarthritis (OA), Renal Disease, Sleep Apnea/CPAP/BIPAP Additional Past Medical History / Comment(s): left kidney stones,. pulmonary h ypertension. incontinent of urine History of Any Multi-Drug Resistant Organisms: None Reported Past Surgical History: Cardiac Ablation, Hysterectomy, Pacemaker Additional Past Surgical History / Comment(s): cystoscopy w/ left ureter stent placed,[facility] Pacemaker left chest Past Anesthesia/Blood Transfusion Reactions: No Reported Reaction Additional Past Anesthesia/Blood Transfusion Reaction / Comm: no hx blood transfusions Type of Cardiac Device: Permanent Pacemaker Device Placement Date:: 2003 Past Psychological History: No Psychological Hx Reported Smoking Status: Former smoker - Past Family History Father Family Medical History: Congestive Heart Failure (CHF), COPD, Pneumonia Additional Family Medical History / Comment(s): emphysema Mother Family Medical History: Cancer Additional Family Medical History / Comment(s): alive 99, Skin CA,spine CA-dx Oct 2022 Medications and Allergies Home Medications Medication Instructions Recorded Confirmed Type Alendronate Sodium [Fosamax] 70 mg PO SCOTT 11/02/22 11/30/23 History Folic Acid 1 mg PO DAILY 11/02/22 11/30/23 History Gabapentin 300 mg PO DAILY@1400 11/02/22 11/30/23 History Gabapentin 600 mg PO BID@0900,2100 11/02/22 11/30/23 History Magnesium Oxide 400 mg PO BID-W/MEALS 11/02/22 11/30/23 History Mirabegron [Myrbetriq] 50 mg PO DAILY 11/02/22 11/30/23 History Warfarin [Coumadin] 2.5 mg PO MOFR 11/02/22 11/30/23 History Warfarin [Coumadin] 5 mg PO SUTUWETHSA 11/02/22 11/30/23 History allopurinoL 200 mg PO DAILY 11/02/22 11/30/23 History traZODone HCL [Desyrel] 50 mg PO HS 11/02/22 11/30/23 History Furosemide [Lasix] 20 mg PO DAILY 11/19/22 11/30/23 History Atorvastatin [Lipitor] 20 mg PO DAILY 11/30/23 11/30/23 History Brimonidine Tartrate [Alphagan P 1 drops LEFT EYE TID 11/30/23 11/30/23 History 0.2% Ophth Soln] Escitalopram [Lexapro] 10 mg PO DAILY 11/30/23 11/30/23 History HYDROcodone/APAP 7.5-325MG [Pettus 1 - 2 tab PO Q6HR PRN #32 tab 11/30/23 Rx 7.5-325] Omeprazole 20 mg PO DAILY #30 tab 11/30/23 Rx Sennosides-Docusate Sodium 1 tab PO BID #60 tablet 11/30/23 Rx [Senokot-S] Sotalol [Betapace] 120 mg PO BID 11/30/23 11/30/23 History amLODIPine [Norvasc] 10 mg PO DAILY 11/30/23 11/30/23 History buPROPion XL [Wellbutrin XL] 150 mg PO DAILY 11/30/23 11/30/23 History busPIRone HCL [Buspar] 7.5 mg PO BID 11/30/23 11/30/23 History sitaGLIPtin [Januvia] 50 mg PO DAILY 11/30/23 11/30/23 History Allergies Allergy/AdvReac Type Severity Reaction Status Date / Time Penicillins Allergy swelling, Verified 11/30/23 11:11 arms and hands reddened and itching cefaclor [From Ceclor] AdvReac swelling, Verified 11/30/23 11:11 arms and hands reddened and itching levofloxacin [From Levaquin] AdvReac Dyspnea Verified 11/30/23 11:11 Physical Exam Vitals: Vital Signs Temp Pulse Resp BP Pulse Ox 11/30/23 07:41 98.1 F 72 18 144/77 96 11/30/23 06:36 98.2 F 11/30/23 06:00 71 18 126/66 11/30/23 05:00 82 18 136/66 97 11/30/23 04:00 84 18 146/64 97 11/30/23 03:00 87 18 144/67 97 11/30/23 02:44 98.7 F 80 18 144/67 95 11/30/23 02:40 94 L Intake and Output 11/29/23 11/30/23 11/30/23 22:59 06:59 14:59 Other: Weight 104.326 kg 104.326 kg Results CBC & Chem 7: 11/30/23 18:41 11/30/23 03:38 Labs: Abnormal Lab Results - Last 24 Hours (Table) 11/30/23 11/30/23 11/30/23 Range/Units 03:38 03:38 03:38 RBC 3.76 L (3.80-5.40) m/uL Plt Count 142 L (150-450) k/uL Lymphocytes # 0.9 L (1.0-4.8) k/uL PT 25.9 H (10.0-12.5) sec INR 2.6 H (<1.2) APTT 33.3 H (22.0-30.0) sec Chloride 108 H (98-107) mmol/L Glucose 154 H (74-99) mg/dL
[2023-11-30] MEDS: INSULIN ASPART (NovoLOG) 100 UNIT/ML VIAL SQ SCH (10:51)
[2023-11-30 11:46] LABS: Glucose,Whole Blood 131 mg/dL (70-110)
[2023-11-30] MEDS: IV FLUID CONTINUATION 1,000 ML IV ONE (14:45)
[2023-11-30] MEDS ORDERED: HYDROmorphone 0.5 MG/0.5 ML SYRINGE IVP PRN ×2 (14:56)
[2023-11-30] MEDS ORDERED: MAGNESIUM HYDROXIDE 2,400 MG/30 ML CUP PO PRN (14:56)
[2023-11-30] MEDS ORDERED: VANCOMYCIN IV PER PHARMACY 1 EACH MISC MISCELLANE PRN (15:02)
[2023-11-30] MEDS ORDERED: TRANEXAMIC ACID 1,000 MG in SODIUM CHLORIDE 0.9% 100 ML IVPB PRN (15:10)
[2023-11-30] MEDS ORDERED: GLYCOPYRROLATE 0.2 MG/ML 2 ML VIAL ONE (15:34)
[2023-11-30] MEDS ORDERED: ROCURONIUM 10 MG/ML (5 ML VIAL) IV ONE (15:34)
[2023-11-30] MEDS ORDERED: NEOSTIGMINE 1 MG/ML 10 ML VIAL ONE (15:34)
[2023-11-30] MEDS ORDERED: fentaNYL (PF) 50 MCG/ML 2 ML AMP ONE (15:34)
[2023-11-30] MEDS ORDERED: SUCCINYLCHOLINE CHLORIDE 200 MG/10 ML VIAL IV ONE (15:34)
[2023-11-30] MEDS ORDERED: KETAMINE HCL IN 0.9 % NACL 50 MG/5 ML SYRINGE ONE (15:34)
[2023-11-30] MEDS ORDERED: PROPOFOL 10 MG/ML 20 ML VIAL IV ONE (15:34)
[2023-11-30] MEDS ORDERED: LIDOCAINE 1% INJ 10MG/ML (20 ML MDV) ONE (15:34)
[2023-11-30] MEDS ORDERED: TRANEXAMIC 1,000 MG/100ML-NACL PREMIX BAG ONE (15:34)
--- NOTE | 2023-11-30 17:06 | P.OP ---
Date of Procedure: 11/30/23 Preoperative Diagnosis: 1. Right intertrochanteric hip fracture 2. Coronary artery disease status post permanent pacemaker placement 2003 3. Congestive heart failure 4. Paroxysmal atrial fibrillation 5. Pulmonary hypertension 6. Pulmonary fibrosis 7. Obstructive sleep apnea 8. Type 2 diabetes 9. Morbid obesity with BMI of 40.7 Postoperative Diagnosis: Same Procedure(s) Performed: Operative fixation of right intertrochanteric hip fracture with short intramedullary hip screw Anesthesia: GETA Surgeon: Surya Hall Estimated Blood Loss (ml): 200 IV fluids (ml): 700 Pathology: none sent Condition: stable Disposition: PACU Indications for Procedure: I met with the patient and their family preoperatively to discuss their injury and treatment options. They have an extra-capsular, intertrochanteric hip fracture and my recommendation was to stabilize the fracture with an intramedullary hip screw to facilitate early mobilization. We discussed the potential risks and complications of this surgical procedure including but certainly not limited to risks from anesthesia, superficial infection, deep infection, fracture nonunion, fracture malunion, hardware failure including broken hardware, varus collapse with lag screw cut out of the femoral head, progression of hip arthritis, limb length discrepancy, symptomatic hardware, need for further surgery including hardware removal and conversion to arthroplasty, DVT, PE, acute coronary event, pressure ulcers, urinary tract infection, failure to thrive, an inability to regain preinjury level of function, and possibly . The patient and their family understand these potential complications and also awknowledge that other less common complications are possible. They provided both their verbal and written consent to go forward with operative fixation of their hip fracture with an intramedullary hip screw. Description of Procedure: The patient was identified in preoperative holding and the correct operative extremity was marked with my initials. I reviewed the consent form with the patient and their family and all of their questions were answered. The patient was then brought back to the operating room by anesthesia. Anesthesia, preoperative antibiotics, and tranexamic acid were given by the anesthesia team while on the [facility]. Both ankles were padded with webril and boots for the [place] table were applied. The patient was then carefully transferred onto the [place] table. A perineal post was immediately placed. The contralateral arm was secured on a well-padded arm jones. The ipsilateral arm was draped across the chest and secured with a pillow, foam, and paper tape to allow access to the proximal femur. Nonsterile drapes were applied to the operative extremity. The height of the table was elevated and the contralateral extremity was dropped towards the floor to facilitate imaging. A timeout was performed identifying the correct patient, operative extremity, and procedure. Fluoroscopy was brought in to assess the fracture. A provisional reduction was performed using longitudinal traction, adduction, and internal rotation. An AP and lateral view were obtained to assess the reduction. The operative extremity was then prepped and draped in the standard sterile fashion. A straight incision was made at the tip of the greater trochanter and extended proximally for 3 cm. Skin and subcutaneous tissues were incised sharply. The underlying fascia was incised in line with the skin incision. An awl was placed just medial to the tip of the greater trochanter on the AP view and colinear with the canal on the lateral view. A 3.2 mm guide pin was then advanced into the proximal femur. The position of the guidepin was verified with fluoroscopy. An opening reamer and soft tissue cannula were placed over the guidepin and used to open the proximal femur to the level of the lesser trochanter. The 3.2 mm guide pin and opening reamer were removed. A short gamma nail was dispensed, hooked up to the targeting arm and I verified that the trochar through the targeting arm lined up with the slots on the nail. The nail was then impacted into the proximal femur until the appropriate depth had been reached. A small stab incision was made over the lateral aspect of the femur using the targeting arm as a reference for the lag screw. Incision was carried down to the skin and fascia down to the lateral cortex of the femur. The trocar was then placed up to the lateral cortex of the femur and a guidepin was placed in the low center position on the AP view and centered in the femoral head on the lateral view. Once the position of the guidewire was verified, we reamed to appropriate depth and placed a lag screw over the guidewire and into the femoral head. The position of the lag screw was assessed with fluoroscopy. The guidewire was then removed from the femoral head. The set screw was placed proximally, brought fully down and then released a quarter turn to allow compression. A final stab incision was made over the lateral femur at the site of the distal interlocking screw, again using the targeting arm as a reference. The trocar and sleeve were placed to the lateral cortex of the femur. We then drilled and placed a distal interlocking screw. Final fluoroscopic images were taken showing excellent reduction of the fracture and appropriate position of the implants. All wounds were thoroughly irrigated and closed in layers. Sterile dressings were applied. The drapes were taken down, the patient was transferred off the [place] table, and was brought to recovery having tolerated the procedure well. PLAN: The patient can weight-bear as tolerated on their operative extremity. 2 doses of postoperative antibiotics. DVT prophylaxis with aspirin 81 mg twice a day starting the day of surgery. Dressing change on postoperative day #2. Appreciate Internal Medical assistance with perioperative medical management. Discharge planning in process.
--- NOTE | 2023-11-30 17:12 | FL ---
EXAMINATION TYPE: FL guidance operating room, XR Hip Complete RT Intraoperative/procedural fluoroscop ic services were provided. Total fluoroscopy time is 1 minute 48 seconds with a total of 4 submitted images to PACS. Please see the operative/procedural note for further details. DAP: 12.189 Gycm2
[2023-11-30] MEDS: LACTATED RINGERS 1,000 ML IV ONE (17:14)
[2023-11-30] MEDS: IPRATROPIUM 0.5 MG/2.5 ML NEBU INHALATION ONE (17:27)
[2023-11-30] MEDS: HYDROmorphone 0.5 MG/0.5 ML SYRINGE IVP ONE ×3 (17:34→17:59)
[2023-11-30 17:41] LABS: Glucose,Whole Blood 140 mg/dL (70-110)
[2023-11-30] MEDS: BRIMONIDINE TARTRATE 0.2% DROPS 5 ML BTL LEFT EYE SCH (17:49)
[2023-11-30] MEDS: GABAPENTIN 300 MG CAP PO SCH ×2 (17:50→20:40)
[2023-11-30 18:59] LABS: Basophils % (A) 0 %; Eosinophils % (A) 0 %; HGB 11.8 gm/dL (11.4-16.0); Hypochromasia Slight; Lymphocytes # (A) 0.9 k/uL (1.0-4.8); Lymphocytes % (A) 8 %; MCH 33.1 pg (25.0-35.0); MCHC 32.7 g/dL (31.0-37.0); MCV 101.2 fL (80.0-100.0); Macrocytosis Slight; Monocytes # (A) 0.5 k/uL (0-1.0); Monocytes % (A) 4 %; Neutrophils # (A) 9.9 k/uL (1.3-7.7); Neutrophils % (A) 88 %; Platelet Count 157 k/uL (150-450); RBC 3.56 m/uL (3.80-5.40); RDW 14.1 % (11.5-15.5); WBC 11.3 k/uL (3.8-10.6)
[2023-11-30] MEDS: HYDROcodone/APAP 5-325MG 1 EACH TAB PO PRN (20:39)
[2023-11-30] MEDS: busPIRone HCl 5 MG TAB PO SCH (20:41)
[2023-11-30] MEDS: SOTALOL 120 MG TAB PO SCH (20:41)
[2023-11-30] MEDS: SENNOSIDES-DOCUSATE SODIUM 1 EACH TAB PO SCH (20:41)
[2023-11-30] MEDS ORDERED: ASPIRIN 81 MG PO SCH (21:00)
[2023-11-30] MEDS ORDERED: TEMAZEPAM 15 MG CAP PO PRN (22:00)
[2023-11-30] MEDS: HYDROmorphone 0.5 MG/0.5 ML SYRINGE IVP PRN (23:46)
[2023-12-01 00:04] LABS: Glucose,Whole Blood 152 mg/dL (70-110)
[2023-12-01] MEDS: LACTATED RINGERS 1,000 ML IV SCH (03:15)
[2023-12-01] MEDS: VANCOMYCIN 1,500 MG in SODIUM CHLORIDE 0.9% 500 ML 500 ML IVPB SCH (05:13)
[2023-12-01 06:14] LABS: Glucose,Whole Blood 144 mg/dL (70-110)
--- NOTE | 2023-12-01 07:52 | P.PN ---
Subjective No acute events overnight per nursing. The patient is painful in her right hip as expected. Objective - Vital Signs Vital signs: Vital Signs Temp 98.0 F 12/01/23 01:14 Pulse 61 12/01/23 01:14 Resp 18 12/01/23 01:14 BP 110/56 12/01/23 01:14 Pulse Ox 95 12/01/23 01:14 FiO2 Intake & Output 11/30/23 12/01/23 12/01/23 18:59 06:59 18:59 Intake Total 900 Output Total 200 750 Balance 700 -750 Weight 104.326 kg Intake: IV 900 Output: Urine 750 Estimated Blood Loss 200 Other: Voiding Method External Catheter External Catheter - Exam Patient is resting comfortably in her bed. She is alert and able to answer questions. On exam of the right leg there are intact dressings over the lateral aspect of the right hip. Her thigh is obese and mildly swollen but soft. She is able to actively plantarflex and dorsiflex her ankle and toes. - Labs CBC & Chem 7: 11/30/23 18:41 11/30/23 03:38 Labs: Abnormal Lab Results - Last 24 Hours (Table) 11/30/23 11/30/23 11/30/23 Range/Units 03:38 09:55 11:45 WBC (3.8-10.6) k/uL RBC (3.80-5.40) m/uL MCV (80.0-100.0) fL Neutrophils # (1.3-7.7) k/uL Lymphocytes # (1.0-4.8) k/uL POC Glucose (mg/dL) 149 H 131 H (70-110) mg/dL Hemoglobin A1c 6.2 H (<=6.0) % 11/30/23 11/30/23 12/01/23 Range/Units 17:40 18:41 00:02 WBC 11.3 H (3.8-10.6) k/uL RBC 3.56 L (3.80-5.40) m/uL MCV 101.2 H (80.0-100.0) fL Neutrophils # 9.9 H (1.3-7.7) k/uL Lymphocytes # 0.9 L (1.0-4.8) k/uL POC Glucose (mg/dL) 140 H 152 H (70-110) mg/dL Hemoglobin A1c (<=6.0) % 12/01/23 Range/Units 06:13 WBC (3.8-10.6) k/uL RBC (3.80-5.40) m/uL MCV (80.0-100.0) fL Neutrophils # (1.3-7.7) k/uL Lymphocytes # (1.0-4.8) k/uL POC Glucose (mg/dL) 144 H (70-110) mg/dL Hemoglobin A1c (<=6.0) % Assessment and Plan Assessment: Postoperative day #1 status post right hip gamma nail Multiple medical problems Plan: 1. Weight-bear as tolerated right lower extremity, up with assistance and a walker. Mobilize out of bed to chair as able. 2. 2 doses postoperative antibiotics 3. DVT prophylaxis with aspirin 81 mg twice a day was internal medicine would like stronger anticoagulation, there are no contraindications from an orthopedic standpoint 4. Physical therapy 5. Appreciate internal medicine's assistance with preoperative clearance and perioperative medical management 6. Dispo: Discharge planning process, she will likely need discharge to SNF/Rehab
[2023-12-01] MEDS: FUROSEMIDE 20 MG TAB PO SCH (09:04)
[2023-12-01] MEDS: buPROPion XL 150 MG TAB.ER.24H PO SCH (09:05)
[2023-12-01] MEDS: ESCITALOPRAM 10 MG TAB PO SCH (09:05)
[2023-12-01] MEDS: amLODIPine 10 MG TAB PO SCH (09:05)
[2023-12-01] MEDS: FOLIC ACID 1 MG TAB PO SCH (09:05)
[2023-12-01] MEDS: ATORVASTATIN 20 MG TAB PO SCH (09:05)
[2023-12-01] MEDS: PATIENT'S OWN (Mirabegron [Myrbetriq] 50 MG Tab.Er.24h) PO SCH (09:06)
[2023-12-01 09:08] LABS: HCT 30.1 % (37.2-46.3); HGB 9.6 g/dL (12.0-15.0); MCH 32.1 pg (27.0-32.0); MCHC 31.9 g/dL (32.0-37.0); MCV 100.7 FL (80.0-97.0); Mean Platelet Volume 10.9 FL (9.5-12.2); NRBC Per 100 WBC 0 X 10*3/uL (0.00-0.01); Platelet Count 142 X 10*3/uL (140-440); RBC 2.99 X 10*6/uL (4.10-5.20); RDW 14.1 % (11.5-14.5)
[2023-12-01 11:12] LABS: ALT 17 U/L (8-44); AST 19 U/L (13-35); Albumin 3.2 g/dL (3.8-4.9); Albumin/Globulin Ratio 1.52 Ratio (1.60-3.17); Alkaline Phosphatase 50 U/L (41-126); BUN/Creat Ratio 22.38 Ratio (12.00-20.00); Blood Urea Nitrogen 17.9 mg/dL (9.0-27.0); Calcium 8.7 mg/dL (8.7-10.3); Carbon Dioxide 26.3 mmol/L (21.6-31.8); Chloride 107 mmol/L (96-109); Globulin 2.1 g/dL (1.6-3.3); Glucose 132 mg/dL (70-110); Magnesium 1.6 mg/dL (1.5-2.4); Potassium 4.6 mmol/L (3.5-5.5); Sodium 141 mmol/L (135-145); Total Bilirubin 0.3 mg/dL (0.3-1.2); Total Protein 5.3 g/dL (6.2-8.2)
[2023-12-01 11:52] LABS: Glucose,Whole Blood 161 mg/dL (70-110)
[2023-12-01] MEDS: INSULIN ASPART (NovoLOG) 100 UNIT/ML VIAL SQ SCH (12:04)
--- NOTE | 2023-12-01 15:15 | P.PN ---
Subjective Progress Note Date: 12/01/23 Hospital course:: Patient is a very pleasant 78-year-old female with a past medical history of CAD status post permanent pacemaker placement in 2003, congestive heart failure, paroxysmal atrial fibrillation status postcardiac ablation on anticoagulation with Coumadin, hypertension, hyperlipidemia, pulmonary hypertension, obstructive sleep apnea CPAP dependent, and type II [id number]-lzvksaafu diabetes mellitus. She was transferred to our facility from [facility] secondary to intertrochanteric right hip fracture resulting from mechanical trip and fall. She is currently admitted under orthopedic surgery team with Dr. Hall and we were consulted for medical clearance and medical management throughout her hospitalization. Vital signs reviewed. Blood pressure currently 144/77, heart rate 72, respiratory rate 18, temp 98.1 F, and SpO2 of 96% on room air. Morning labs reviewed. CBC showing stable hemoglobin of 12.1 and mild thrombocytopenia with platelet count of 142. Coagulation profile shows therapeutic INR at 2.6 (which is therapeutic for patient's goal level however places patient at increased risk of bleeding during and after surgical procedure). BMP showing mild hyperchloremia with chloride of 108 and hy perglycemia with glucose of 154 otherwise unremarkable. EKG completed showing sinus rhythm at 76 bpm with nonspecific T wave abnormalities but showing no significant T wave or ST abnormalities concerning for acute ischemia. Chest x- ray reviewed and was negative for acute cardiopulmonary process. Patient was admitted under orthopedic surgery team and we were consulted for medical management. Patient underwent surgical repair of right intertrochanteric femoral fracture with intramedullary nailing with Dr. Hall on 11/30/2023. Physical exam: Patient was seen and fully evaluated at bedside. Patient appears to be doing well this morning. She is postoperative day 1. She reports pain to right lateral hip and thigh and has mild swelling present. Movement and sensation of right lower extremity is intact. Patient denies having any other complaints including headache, lightheadedness, dizziness, chest pain, palpitations, or shortness of breath at this time. Vital signs reviewed and stable. General: Nontoxic, no distress and appears stated age. Obese. Derm: Skin warm and dry, normal coloration for ethnicity. Head: Atraumatic, normocephalic and symmetric. Eyes: EOMs intact, no lid lag, and anicteric sclera Mouth: no lip lesions, mucus membranes moist Cardiovascular: regular rate and rhythm with normal S1S2, soft systolic murmur, positive posterior tibial pulses bilaterally, and cap refill < 2 seconds. Pacem john left anterior chest. Lungs: Respirations even, regular, and unlabored on room air. Lungs CTA bi laterally, no rhonchi, no rales, no wheezing, and no accessory muscle usage. Abdominal: soft, nontender to palpation, no guarding, no appreciable organomegaly Ext: No gross muscle atrophy, no edema, no contractures. Movement and sensation intact. Postsurgical dressing intact right lateral hip. Neuro: Speech clear, face symmetrical and CN II-XII grossly intact with no noted focal neuro deficits Psych: Alert and oriented to person, place, time, and situation. Appropriate and pleasant affect. Assessment and Plan of Care: Acute postoperative blood loss anemia Preoperative hemoglobin of 11.8 with postoperative hemoglobin of 9.6. This is a stable and expected finding as patient did undergo surgical procedure with elevated INR of 2.6 as she was previously on Coumadin when she experienced a traumatic fall resulting in right intertrochanteric femur fracture. Patient has no signs of active bleeding, no need for transfusion or additional interventions at this time. Will repeat hemoglobin tomorrow morning and transfuse if needed for any hemoglobins less than 7. Hypomagnesemia Magnesium 1.6, orders placed for magnesium sulfate 2 g IVPB x 1 dose. Order placed for repeat morning magnesium level to monitor for improvement/resolution. Additional orders to be placed if indicated based upon these results. Status post fixation of right intertrochanteric hip fracture with short intramedullary hip screw. Management per primary admitting orthopedic surgery team including DVT prophylaxis, pain management, wound/dressing management, weightbearing, and PT/OT. Recommend resumption of Coumadin once cleared by primary admitting orthopedic surgery team. CAD status post permanent pacemaker placement in 2003 Congestive heart failure Paroxysmal atrial fibrillation status postcardiac ablation on anticoagulation with Coumadin Hypertension Hyperlipidemia -EKG completed showing sinus rhythm at 76 bpm with nonspecific T wave abnormalities but showing no significant T wave or ST abnormalities concerning for acute ischemia upon personal review and interpretation. -Patient to continue daily medication regimen with amlodipine 10 mg daily, atorvastatin 20 mg daily, and sotalol 120 mg twice daily. -Patient may resume daily Lasix 20 mg orally tomorrow morning. -Coumadin held pending surgical repair of right intertrochanteric femur fracture. Recommend resumption of anticoagulation once cleared by primary admitting orthopedic surgery team to resume. Pulmonary hypertension Pulmonary fibrosis Obstructive sleep apnea CPAP dependent -Chest x-ray reviewed and was negative for acute cardiopulmonary process. -Order placed for CPAP nightly and while napping. -Order placed for DuoNebs as needed for shortness of breath and/or wheezing. -Order placed for incentive spirometry, encourage use 10-15 times hourly while awake. Type II [id number] diabetes mellitus. -Hold oral hypoglycemic Januvia and patient placed on glycemic protocol with NovoLog sliding scale. Data and imaging reviewed: Morning labs reviewed and stable. CBC showing mild leukocytosis with WBC count of 10.60 and acute postoperative blood loss anemia with hemoglobin of 9.6. BMP was unremarkable. Magnesium slightly low at 1.6. Vital signs reviewed and stable. Blood pressure 124/62, heart rate 68, respiratory rate 19, temp 98.1 F, and SpO2 of 95% on 3 L. Thank you for allowing us to participate in the care of this pleasant patient. Do not hesitate to contact us with questions. Someone can be reached from the [facility] hospitalist group all hours of the day at [phone] or via [employer]. Patient was seen independently by Nurse Practitioner. This document was prepared using [employer] dictation software. Please allow for errors in field test engineer while rare they do occur. This patient was seen independently by my colleague Janet TOMPKINS. I agree with the assessment and plan. Objective - Vital Signs Vital signs: Vital Signs Temp 98.5 F 12/01/23 14:23 Pulse 63 12/01/23 14:23 Resp 20 12/01/23 14:23 BP 135/66 12/01/23 14:23 Pulse Ox 99 12/01/23 14:23 FiO2 Intake & Output 11/30/23 12/01/23 12/01/23 18:59 06:59 18:59 Intake Total 900 1300 Output Total 200 1550 Balance 700 -1550 1300 Weight 104.326 kg Intake: IV 900 Intake, IV Titration 1300 Amount Lactated Ringers 1,000 ml 800 @ 100 mls/hr IV .Q10H [facility] Rx#:[id number] Vancomycin 1,500 mg In 500 Sodium Chloride 0.9% 500 ml 500 ml @ 167 mls/hr IVPB Q24H [facility] Rx#: [id number] Output: Urine 1550 Straight 800 Estimated Blood Loss 200 Other: Voiding Method External Catheter External Catheter - Labs CBC & Chem 7: 12/02/23 06:47 12/02/23 06:47 Labs: Abnormal Lab Results - Last 24 Hours (Table) 11/30/23 11/30/23 12/01/23 Range/Units 17:40 18:41 00:02 WBC 11.3 H (3.8-10.6) k/uL RBC 3.56 L (3.80-5.40) m/uL Hgb (12.0-15.0) g/dL Hct (37.2-46.3) % MCV 101.2 H (80.0-100.0) fL MCH (27.0-32.0) pg MCHC (32.0-37.0) g/dL Neutrophils # 9.9 H (1.3-7.7) k/uL Lymphocytes # 0.9 L (1.0-4.8) k/uL BUN/Creatinine Ratio (12.00-20.00) Ratio Glucose (70-110) mg/dL POC Glucose (mg/dL) 140 H 152 H (70-110) mg/dL Total Protein (6.2-8.2) g/dL Albumin (3.8-4.9) g/dL Albumin/Globulin Ratio (1.60-3.17) Ratio 12/01/23 12/01/23 12/01/23 Range/Units 05:58 05:58 06:13 WBC 10.60 H (3.8-10.6) k/uL RBC 2.99 L (3.80-5.40) m/uL Hgb 9.6 L (12.0-15.0) g/dL Hct 30.1 L (37.2-46.3) % MCV 100.7 H (80.0-100.0) fL MCH 32.1 H (27.0-32.0) pg MCHC 31.9 L (32.0-37.0) g/dL Neutrophils # (1.3-7.7) k/uL Lymphocytes # (1.0-4.8) k/uL BUN/Creatinine Ratio 22.38 H (12.00-20.00) Ratio Glucose 132 H (70-110) mg/dL POC Glucose (mg/dL) 144 H (70-110) mg/dL Total Protein 5.3 L (6.2-8.2) g/dL Albumin 3.2 L (3.8-4.9) g/dL Albumin/Globulin Ratio 1.52 L (1.60-3.17) Ratio 12/01/23 Range/Units 11:51 WBC (3.8-10.6) k/uL RBC (3.80-5.40) m/uL Hgb (12.0-15.0) g/dL Hct (37.2-46.3) % MCV (80.0-100.0) fL MCH (27.0-32.0) pg MCHC (32.0-37.0) g/dL Neutrophils # (1.3-7.7) k/uL Lymphocytes # (1.0-4.8) k/uL BUN/Creatinine Ratio (12.00-20.00) Ratio Glucose (70-110) mg/dL POC Glucose (mg/dL) 161 H (70-110) mg/dL Total Protein (6.2-8.2) g/dL Albumin (3.8-4.9) g/dL Albumin/Globulin Ratio (1.60-3.17) Ratio
[2023-12-01] MEDS: MAGNESIUM SULFATE-D5W PMX 1 GM in DEXTROSE/WATER 1 100ML.BAG IVPB SCH (15:32)
[2023-12-01 16:58] LABS: Glucose,Whole Blood 148 mg/dL (70-110)
[2023-12-01 23:15] LABS: Glucose,Whole Blood 153 mg/dL (70-110)
[2023-12-02] MEDS: HYDROcodone/APAP 5-325MG 1 EACH TAB PO PRN (04:16)
[2023-12-02 05:53] LABS: Glucose,Whole Blood 156 mg/dL (70-110)
[2023-12-02 12:00] LABS: Glucose,Whole Blood 128 mg/dL (70-110)
[2023-12-02 12:09] LABS: Basophils % (A) 0 %; Eosinophils # (A) 0.1 k/uL (0-0.7); Eosinophils % (A) 1 %; HCT 24.3 % (34.0-46.0); Hypochromasia Slight; Lymphocytes # (A) 1.4 k/uL (1.0-4.8); Lymphocytes % (A) 18 %; MCH 32.7 pg (25.0-35.0); MCHC 32.7 g/dL (31.0-37.0); MCV 100.1 fL (80.0-100.0); Macrocytosis Slight; Mean Platelet Volume 9.7; Monocytes # (A) 0.7 k/uL (0-1.0); Monocytes % (A) 10 %; Neutrophils # (A) 5.3 k/uL (1.3-7.7); Neutrophils % (A) 69 %; Platelet Count 140 k/uL (150-450); RBC 2.43 m/uL (3.80-5.40); RDW 14.2 % (11.5-15.5); WBC 7.7 k/uL (3.8-10.6)
--- NOTE | 2023-12-02 12:46 | P.PN ---
Subjective Patient is doing well today. Her pain is improved. She is sitting up in a chair. Objective - Vital Signs Vital signs: Vital Signs Temp 98.3 F 12/02/23 07:17 Pulse 63 12/02/23 07:17 Resp 16 12/02/23 07:17 BP 147/67 12/02/23 07:17 Pulse Ox 99 12/02/23 07:17 FiO2 Intake & Output 12/01/23 12/02/23 12/02/23 18:59 06:59 18:59 Intake Total 1300 Output Total 400 Balance 900 Intake: Intake, IV Titration 1300 Amount Lactated Ringers 1,000 ml 800 @ 100 mls/hr IV .Q10H [facility] Rx#:[id number] Vancomycin 1,500 mg In 500 Sodium Chloride 0.9% 500 ml 500 ml @ 167 mls/hr IVPB Q24H [facility] Rx#: [id number] Output: Urine 400 Straight 400 Other: Voiding Method External Catheter - Exam Patient is sitting up in a chair. She is alert and oriented. She is able to extend her knee and actively plantar flex and dorsiflex her ankle and her toes. - Labs CBC & Chem 7: 12/02/23 06:47 12/01/23 05:58 Labs: Abnormal Lab Results - Last 24 Hours (Table) 12/01/23 12/01/23 12/02/23 Range/Units 16:56 23:14 05:51 RBC (3.80-5.40) m/uL Hgb (11.4-16.0) gm/dL Hct (34.0-46.0) % MCV (80.0-100.0) fL Plt Count (150-450) k/uL POC Glucose (mg/dL) 148 H 153 H 156 H (70-110) mg/dL 12/02/23 12/02/23 Range/Units 06:47 11:59 RBC 2.43 L (3.80-5.40) m/uL Hgb 8.0 L D (11.4-16.0) gm/dL Hct 24.3 L (34.0-46.0) % MCV 100.1 H (80.0-100.0) fL Plt Count 140 L (150-450) k/uL POC Glucose (mg/dL) 128 H (70-110) mg/dL Assessment and Plan Assessment: Postoperative day #2 status post right gamma nail Multiple medical problems Plan: Continue treatment as outlined yesterday. DVT prophylaxis with Coumadin per internal medicine. Leave surgical dressings in place. Weight-bear as tolerated on her right lower extremity with assistance of a walker. Plan for discharge to rehab or nursing facility when arrangements a been made, likely tomorrow.
[2023-12-02 13:11] LABS: Calcium 8.2 mg/dL (8.7-10.3); Carbon Dioxide 27.3 mmol/L (21.6-31.8); Chloride 106 mmol/L (96-109); Glucose 120 mg/dL (70-110); Magnesium 1.7 mg/dL (1.5-2.4); Potassium 4.4 mmol/L (3.5-5.5); Sodium 140 mmol/L (135-145)
--- NOTE | 2023-12-02 16:30 | P.PN ---
Subjective Progress Note Date: 12/02/23 Hospital course:: Patient is a very pleasant 78-year-old female with a past medical history of CAD status post permanent pacemaker placement in 2003, congestive heart failure, paroxysmal atrial fibrillation status postcardiac ablation on anticoagulation with Coumadin, hypertension, hyperlipidemia, pulmonary hypertension, obstructive sleep apnea CPAP dependent, and type II uie-zqepigr-eeroknrax diabetes mellitus. She was transferred to our facility from [facility] secondary to intertrochanteric right hip fracture resulting from mechanical trip and fall. She is currently admitted under orthopedic surgery team with Dr. Hall and we were consulted for medical clearance and medical management throughout her hospitalization. Vital signs reviewed. Blood pressure currently 144/77, heart rate 72, respiratory rate 18, temp 98.1 F, and SpO2 of 96% on room air. Morning labs reviewed. CBC showing stable hemoglobin of 12.1 and mild thrombocytopenia with platelet count of 142. Coagulation profile shows therapeutic INR at 2.6 (which is therapeutic for patient's goal level however places patient at increased risk of bleeding during and after surgical procedure). BMP showing mild hyperchloremia with chloride of 108 and hy perglycemia with glucose of 154 otherwise unremarkable. EKG completed showing sinus rhythm at 76 bpm with nonspecific T wave abnormalities but showing no significant T wave or ST abnormalities concerning for acute ischemia. Chest x- ray reviewed and was negative for acute cardiopulmonary process. Patient was admitted under orthopedic surgery team and we were consulted for medical management. Patient underwent surgical repair of right intertrochanteric femoral fracture with intramedullary nailing with Dr. Hall on 11/30/2023. Physical exam: Patient was seen and fully evaluated at bedside. Patient appears to be doing well this morning. She is postoperative day 2. She reports pain to right lateral hip and thigh has improved, patient reports she was able to stand yesterday with physical therapy but was unable to walk.. Movement and sensation of right lower extremity is intact. Patient denies having any other complaints including headache, lightheadedness, dizziness, chest pain, palpitations, or shortness of breath at this time. Patient requesting subacute rehab at [facility]. Case management informed and making arrangements. Vital signs reviewed and stable. General: Nontoxic, no distress and appears stated age. Obese. Derm: Skin warm and dry, normal coloration for ethnicity. Head: Atraumatic, normocephalic and symmetric. Eyes: EOMs intact, no lid lag, and anicteric sclera Mouth: no lip lesions, mucus membranes moist Cardiovascular: regular rate and rhythm with normal S1S2, soft systolic murmur, positive posterior tibial pulses bilaterally, and cap refill < 2 seconds. Pacemaker left anterior chest. Lungs: Respirations even, regular, and unlabored on room air. Lungs CTA bilater ally, no rhonchi, no rales, no wheezing, and no accessory muscle usage. Abdominal: soft, nontender to palpation, no guarding, no appreciable organomegaly Ext: No gross muscle atrophy, no edema, no contractures. Movement and sensation intact. Postsurgical dressing intact right lateral hip. Neuro: Speech clear, face symmetrical and CN II-XII grossly intact with no noted focal neuro deficits Psych: Alert and oriented to person, place, time, and situation. Appropriate and pleasant affect. Assessment and Plan of Care: Acute postoperative blood loss anemia Preoperative hemoglobin of 11.8 with current hemoglobin of 8.0.. This is a stable and expected finding as patient did undergo surgical procedure with elevated INR of 2.6 as she was previously on Coumadin when she experienced a traumatic fall resulting in right intertrochanteric femur fracture. Patient has no signs of active bleeding, no need for transfusion or additional interventions at this time. Will repeat hemoglobin tomorrow morning and tr ansfuse if needed for any hemoglobins less than 7. Hypomagnesemia Magnesium 1.7 orders placed for magnesium sulfate 2 g IVPB x 1 dose. Order placed for repeat morning magnesium level to monitor for improvement/resolution. Additional orders to be placed if indicated based upon these results. Status post fixation of right intertrochanteric hip fracture with short intramedullary hip screw. Management per primary admitting orthopedic surgery team including DVT prophylaxis, pain management, wound/dressing management, weightbearing, and PT/OT. Recommend resumption of Coumadin once cleared by primary admitting orthopedic surgery team. CAD status post permanent pacemaker placement in 2003 Congestive heart failure Paroxysmal atrial fibrillation status postcardiac ablation on anticoagulation with Coumadin Hypertension Hyperlipidemia -EKG completed showing sinus rhythm at 76 bpm with nonspecific T wave abnormalities but showing no significant T wave or ST abnormalities concerning for acute ischemia upon personal review and interpretation. -Patient to continue daily medication regimen with amlodipine 10 mg daily, atorvastatin 20 mg daily, and sotalol 120 mg twice daily. -Patient may resume daily Lasix 20 mg orally tomorrow morning. -Coumadin held pending surgical repair of right intertrochanteric femur fracture. Recommend resumption of anticoagulation once cleared by primary admitting orthopedic surgery team to resume. Pulmonary hypertension Pulmonary fibrosis Obstructive sleep apnea CPAP dependent -Chest x-ray reviewed and was negative for acute cardiopulmonary process. -Order placed for CPAP nightly and while napping. -Order placed for DuoNebs as needed for shortness of breath and/or wheezing. -Order placed for incentive spirometry, encourage use 10-15 times hourly while awake. Type II yce-zjrlyzw-ygcrjarzh diabetes mellitus. -Hold oral hypoglycemic Januvia and patient placed on glycemic protocol with NovoLog sliding scale. Data and imaging reviewed: Morning labs reviewed and stable. CBC showing mild leukocytosis with WBC count of 10.60 and acute postoperative blood loss anemia with hemoglobin of 8.0. BMP was unremarkable. Magnesium slightly low at 1.7 Vital signs reviewed and stable. Blood pressure 147/67, heart rate 63, respiratory rate 16, temp 98.3 F, and SpO2 of 99% on 3 L. Orders placed for nursing communication to wean from oxygen. Thank you for allowing us to participate in the care of this pleasant patient. Do not hesitate to contact us with questions. Someone can be reached from the [facility] hospitalist group all hours of the day at [phone] or via [employer]. Patient was seen independently by Nurse Practitioner. This document was prepared using [employer] dictation software. Please allow for errors in cook pressure while rare they do occur. Mike Gonzales NP rendered care for this patient independently, reviewed the findings and plan as documented in the note above. I did not physically speak with or examine the patient on this date. Objective - Vital Signs Vital signs: Vital Signs Temp 98 F 12/02/23 02:14 Pulse 62 12/02/23 02:14 Resp 18 12/02/23 02:14 BP 124/63 12/02/23 02:14 Pulse Ox 98 12/02/23 02:14 FiO2 Intake & Output 12/01/23 12/02/23 12/02/23 18:59 06:59 18:59 Intake Total 1300 Output Total 400 Balance 900 Intake: Intake, IV Titration 1300 Amount Lactated Ringers 1,000 ml 800 @ 100 mls/hr IV .Q10H [facility] Rx#:[id number] Vancomycin 1,500 mg In 500 Sodium Chloride 0.9% 500 ml 500 ml @ 167 mls/hr IVPB Q24H [facility] Rx#: [id number] Output: Urine 400 Straight 400 Other: Voiding Method External Catheter - Labs CBC & Chem 7: 12/02/23 06:47 12/02/23 06:47 Labs: Abnormal Lab Results - Last 24 Hours (Table) 12/01/23 12/01/23 12/01/23 Range/Units 05:58 05:58 11:51 WBC 10.60 H (4.50-10.00) X 10*3/uL RBC 2.99 L (4.10-5.20) X 10*6/uL Hgb 9.6 L (12.0-15.0) g/dL Hct 30.1 L (37.2-46.3) % MCV 100.7 H (80.0-97.0) FL MCH 32.1 H (27.0-32.0) pg MCHC 31.9 L (32.0-37.0) g/dL BUN/Creatinine Ratio 22.38 H (12.00-20.00) Ratio Glucose 132 H (70-110) mg/dL POC Glucose (mg/dL) 161 H (70-110) mg/dL Total Protein 5.3 L (6.2-8.2) g/dL Albumin 3.2 L (3.8-4.9) g/dL Albumin/Globulin Ratio 1.52 L (1.60-3.17) Ratio 12/01/23 12/01/23 12/02/23 Range/Units 16:56 23:14 05:51 WBC (4.50-10.00) X 10*3/uL RBC (4.10-5.20) X 10*6/uL Hgb (12.0-15.0) g/dL Hct (37.2-46.3) % MCV (80.0-97.0) FL MCH (27.0-32.0) pg MCHC (32.0-37.0) g/dL BUN/Creatinine Ratio (12.00-20.00) Ratio Glucose (70-110) mg/dL POC Glucose (mg/dL) 148 H 153 H 156 H (70-110) mg/dL Total Protein (6.2-8.2) g/dL Albumin (3.8-4.9) g/dL Albumin/Globulin Ratio (1.60-3.17) Ratio
[2023-12-02] MEDS: MAGNESIUM SULFATE-D5W PMX 1 GM in DEXTROSE/WATER 1 100ML.BAG IVPB SCH (16:42)
[2023-12-02 17:09] LABS: Glucose,Whole Blood 145 mg/dL (70-110)
[2023-12-02 20:15] LABS: Glucose,Whole Blood 137 mg/dL (70-110)
[2023-12-03 06:04] LABS: Glucose,Whole Blood 126 mg/dL (70-110)
--- NOTE | 2023-12-03 07:44 | P.DS ---
Providers Date of admission: 11/30/23 03:25 Attending physician: Surya Hall Consults: 11/30/23 03:25 Consult Physician Routine Consulting Provider: Mo Porter Consult Reason/Comments: medicine consult per ortho request Do you want consulting provider notified?: Yes 12/02/23 07:07 Consult Physician Routine Consulting Provider: Kishore Lang Consult Reason/Comments: Retention with skaggs Do you want consulting provider notified?: Yes Primary care physician: Ruy [facility] Course: Patient is a very pleasant 78-year-old female with multiple medical problems who was transferred from an outside hospital with a right hip fracture. She was cleared by internal medicine and I took the patient to surgery where short gamma nail was placed. Following an uncomplicated surgical procedure the patient was transferred to orthopedics for. She received 2 doses of postoperative antibiotics. She worked with physical therapy. She did well from an orthopedic standpoint. For full details a medical issues during her hospitalization see internal medicine records. She was cleared for discharge to [facility] rehab. Patient Condition at Discharge: Fair Plan - Discharge Summary Discharge Rx Participant: Yes New Discharge Prescriptions: New HYDROcodone/APAP 7.5-325MG [[place] 7.5-325] 1 - 2 tab PO Q6HR PRN #32 tab PRN Reason: Pain Omeprazole 20 mg PO DAILY #30 tab Sennosides-Docusate Sodium [Senokot-S] 1 tab PO BID #60 tablet No Action Mirabegron [Myrbetriq] 50 mg PO DAILY allopurinoL 200 mg PO DAILY Warfarin [Coumadin] 5 mg PO SUTUWETHSA Warfarin [Coumadin] 2.5 mg PO MOFR Escitalopram [Lexapro] 10 mg PO DAILY Brimonidine Tartrate [Alphagan P 0.2% Ophth Soln] 1 drops LEFT EYE TID amLODIPine [Norvasc] 10 mg PO DAILY Sotalol [Betapace] 120 mg PO BID Atorvastatin [Lipitor] 20 mg PO DAILY Magnesium Oxide 400 mg PO BID-W/MEALS traZODone HCL [Desyrel] 50 mg PO HS Gabapentin 300 mg PO DAILY@1400 Gabapentin 600 mg PO BID@0900,2100 Folic Acid 1 mg PO DAILY Alendronate Sodium [Fosamax] 70 mg PO SCOTT Furosemide [Lasix] 20 mg PO DAILY buPROPion XL [Wellbutrin XL] 150 mg PO DAILY sitaGLIPtin [Januvia] 50 mg PO DAILY busPIRone HCL [Buspar] 7.5 mg PO BID Discharge Medication List Alendronate Sodium [Fosamax] 70 mg PO SCOTT 11/02/22 [History] Folic Acid 1 mg PO DAILY 11/02/22 [History] Gabapentin 300 mg PO DAILY@1400 11/02/22 [History] Gabapentin 600 mg PO BID@0900,2100 11/02/22 [History] Magnesium Oxide 400 mg PO BID-W/MEALS 11/02/22 [History] Mirabegron [Myrbetriq] 50 mg PO DAILY 11/02/22 [History] Warfarin [Coumadin] 2.5 mg PO MOFR 11/02/22 [History] Warfarin [Coumadin] 5 mg PO SUTUWETHSA 11/02/22 [History] allopurinoL 200 mg PO DAILY 11/02/22 [History] traZODone HCL [Desyrel] 50 mg PO HS 11/02/22 [History] Furosemide [Lasix] 20 mg PO DAILY 11/19/22 [History] Atorvastatin [Lipitor] 20 mg PO DAILY 11/30/23 [History] Brimonidine Tartrate [Alphagan P 0.2% Ophth Soln] 1 drops LEFT EYE TID 11/30/23 [History] Escitalopram [Lexapro] 10 mg PO DAILY 11/30/23 [History] HYDROcodone/APAP 7.5-325MG [[place] 7.5-325] 1 - 2 tab PO Q6HR PRN #32 tab 11/30/23 [Rx] Omeprazole 20 mg PO DAILY #30 tab 11/30/23 [Rx] Sennosides-Docusate Sodium [Senokot-S] 1 tab PO BID #60 tablet 11/30/23 [Rx] Sotalol [Betapace] 120 mg PO BID 11/30/23 [History] amLODIPine [Norvasc] 10 mg PO DAILY 11/30/23 [History] buPROPion XL [Wellbutrin XL] 150 mg PO DAILY 11/30/23 [History] busPIRone HCL [Buspar] 7.5 mg PO BID 11/30/23 [History] sitaGLIPtin [Januvia] 50 mg PO DAILY 02/18/24 [History] Follow up Appointment(s)/Referral(s): Ruy Weir MD [Primary Care Provider] - 1-2 days Surya Hall MD [Medical Doctor] - 2 Weeks Patient Instructions/Handouts: Fall Prevention for Older Adults (DC), Intramedullary Nailing (DC) Activity/Diet/Wound Care/Special Instructions: 1. Weight-bear as tolerated on your operative extremity unless instructed otherwise. Use a walker or other assistive device to ambulate. 2. Leave surgical dressing in place. If your dressing becomes saturated with blood, there is drainage, or the dressing becomes loose please contact the office. 3. It is okay to shower with your surgical dressing, but do not submerge in water (no hot tubs, bath's, swimming etc.) 4. Make sure to take her blood clot prevention medication as prescribed (aspirin, Eliquis, Xarelto, and Plavix are commonly prescribed medications for blood clot prevention) 5. While taking [place] or Percocet for pain make sure you're taking a stool softener (Colace) and drink lots of water. 6. Keep all follow-up appointments as scheduled. You will usually be seen in 1-2 weeks following surgery. 7. Please contact the office with any questions or concerns [phone]
[2023-12-03 11:12] LABS: HCT 19.9 % (37.2-46.3); HGB 6.4 g/dL (12.0-15.0); MCH 32.3 pg (27.0-32.0); MCHC 32.2 g/dL (32.0-37.0); MCV 100.5 FL (80.0-97.0); Mean Platelet Volume 10.9 FL (9.5-12.2); NRBC Per 100 WBC 0 X 10*3/uL (0.00-0.01); Platelet Count 137 X 10*3/uL (140-440); RBC 1.98 X 10*6/uL (4.10-5.20); RDW 14.1 % (11.5-14.5); WBC 6.84 X 10*3/uL (4.50-10.00)
[2023-12-03 11:21] LABS: Magnesium 1.6 mg/dL (1.5-2.4)
--- NOTE | 2023-12-03 11:25 | P.PN ---
Subjective Progress Note Date: 12/03/23 Hospital course:: Patient is a very pleasant 78-year-old female with a past medical history of CAD status post permanent pacemaker placement in 2003, congestive heart failure, paroxysmal atrial fibrillation status postcardiac ablation on anticoagulation with Coumadin, hypertension, hyperlipidemia, pulmonary hypertension, obstructive sleep apnea CPAP dependent, and type II [id number]-zpmjaybgh diabetes mellitus. She was transferred to our facility from [facility] secondary to intertrochanteric right hip fracture resulting from mechanical trip and fall. She is currently admitted under orthopedic surgery team with Dr. Hall and we were consulted for medical clearance and medical management throughout her hospitalization. Vital signs reviewed. Blood pressure currently 144/77, heart rate 72, respiratory rate 18, temp 98.1 F, and SpO2 of 96% on room air. Morning labs reviewed. CBC showing stable hemoglobin of 12.1 and mild thrombocytopenia with platelet count of 142. Coagulation profile shows therapeutic INR at 2.6 (which is therapeutic for patient's goal level however places patient at increased risk of bleeding during and after surgical procedure). BMP showing mild hyperchloremia with chloride of 108 and hy perglycemia with glucose of 154 otherwise unremarkable. EKG completed showing sinus rhythm at 76 bpm with nonspecific T wave abnormalities but showing no significant T wave or ST abnormalities concerning for acute ischemia. Chest x- ray reviewed and was negative for acute cardiopulmonary process. Patient was admitted under orthopedic surgery team and we were consulted for medical management. Patient underwent surgical repair of right intertrochanteric femoral fracture with intramedullary nailing with Dr. Hall on 11/30/2023. Physical exam: Patient was seen and fully evaluated at bedside. She is postoperative day 3. She reports mild to moderate pain to right lateral hip and thigh. She has mild bruising to right hip and thigh and moderate swelling, no signs of hematoma formation. Movement and sensation of right lower extremity remains intact. Vital signs reviewed and stable. General: Nontoxic, no distress and appears stated age. Obese. Derm: Skin warm and dry, normal coloration for ethnicity. Head: Atraumatic, normocephalic and symmetric. Eyes: EOMs intact, no lid lag, and anicteric sclera Mouth: no lip lesions, mucus membranes moist Cardiovascular: regular rate and rhythm with normal S1S2, soft systolic murmur, positive posterior tibial pulses bilaterally, and cap refill < 2 seconds. Pacemaker left anterior chest. Lungs: Respirations even, regular, and unlabored on room air. Lungs CTA bilaterally, no rhonchi, no rales, no wheezing, and no accessory muscle usage. Abdominal: soft, nontender to palpation, no guarding, no appreciable organomegaly Ext: No gross muscle atrophy, no edema, no contractures. Movement and sensation intact. Postsurgical dressing intact right lateral hip showing only minimal shadowing. Patient with mild bruising to right lateral hip and thigh with moderate swelling, no signs of hematoma formation. Neuro: Speech clear, face symmetrical and CN II-XII grossly intact with no noted focal neuro deficits Psych: Alert and oriented to person, place, time, and situation. Appropriate and pleasant affect. Assessment and Plan of Care: Acute postoperative blood loss anemia, greater than expected Preoperative hemoglobin of 11.8 with current hemoglobin of 6.4.. Orders placed for stat PT/INR along with iron profile. Orders placed for transfusion of 1 unit PRBCs No signs of active bleeding or hematoma formation, discussed with orthopedic surgeon, he is not recommending repeat CT at this time. Will repeat hemoglobin tomorrow morning and transfuse if needed for any hemoglo bins less than 7. Hypomagnesemia Magnesium 1.6 orders placed for magnesium sulfate 2 g IVPB x 1 dose. Order placed for repeat morning magnesium level to monitor for improvement/resolution. Additional orders to be placed if indicated based upon these results. Status post fixation of right intertrochanteric hip fracture with short intramedullary hip screw. Management per primary admitting orthopedic surgery team including DVT prophylaxis, pain management, wound/dressing management, weightbearing, and PT/OT. Continue to hold Coumadin at this time, patient requiring transfusion of PRBCs. Patient may resume Coumadin once medically stable and cleared by primary admitting orthopedic surgery team. CAD status post permanent pacemaker placement in 2003 Congestive heart failure Paroxysmal atrial fibrillation status postcardiac ablation on anticoagulation with Coumadin Hypertension Hyperlipidemia -EKG completed showing sinus rhythm at 76 bpm with nonspecific T wave abnormalities but showing no significant T wave or ST abnormalities concerning for acute ischemia upon personal review and interpretation. -Patient to continue daily medication regimen with amlodipine 10 mg daily, atorvastatin 20 mg daily, and sotalol 120 mg twice daily. -Continue Lasix 20 mg daily. -Continue to hold Coumadin at this time, patient requiring transfusion of PRBCs. Patient may resume Coumadin once medically stable and cleared by primary admitting orthopedic surgery team. Pulmonary hypertension Pulmonary fibrosis Obstructive sleep apnea CPAP dependent -Chest x-ray reviewed and was negative for acute cardiopulmonary process. -Order placed for CPAP nightly and while napping. -Order placed for DuoNebs as needed for shortness of breath and/or wheezing. -Order placed for incentive spirometry, encourage use 10-15 times hourly while a wake. Type II [id number] diabetes mellitus. -Continue to hold oral hypoglycemic Januvia and continue glycemic protocol with NovoLog sliding scale. Data and imaging reviewed: Morning labs reviewed and stable. CBC showing further drop in hemoglobin with preoperative hemoglobin of 11.8 and day 3 postop hemoglobin is 6.4 with platelet count of 137. Magnesium 1.6. Vital signs reviewed and stable. Blood pressure 153/65, heart rate 72, respiratory rate 16, temp 98.2 F, and SpO2 of 96% on room air. Patient to be discharged to [facility] for rehab once medically stable. Thank you for allowing us to participate in the care of this pleasant patient. Do not hesitate to contact us with questions. Someone can be reached from the [facility] hospitalist group all hours of the day at [phone] or via Aras. Patient was seen independently by Nurse Practitioner. This document was prepared using [employer] dictation software. Please allow for errors in line assigner while rare they do occur. Patient was seen independently by Janet TOMPKINS. I agree with the assessment and plan done by my colleague. Objective - Vital Signs Vital signs: Vital Signs Temp 98.1 F 12/03/23 02:00 Pulse 66 12/03/23 02:00 Resp 16 12/03/23 02:00 BP 144/66 12/03/23 02:00 Pulse Ox 95 12/03/23 02:00 FiO2 Intake & Output 12/02/23 12/03/23 12/03/23 18:59 06:59 18:59 Output Total 450 Balance -450 Output: Urine 450 Other: Voiding Method Indwelling Catheter # Voids 1 - Labs CBC & Chem 7: 12/08/23 08:46 12/06/23 06:18 Labs: Abnormal Lab Results - Last 24 Hours (Table) 12/02/23 12/02/23 12/02/23 Range/Units 06:47 06:47 11:59 RBC 2.43 L (3.80-5.40) m/uL Hgb 8.0 L D (11.4-16.0) gm/dL Hct 24.3 L (34.0-46.0) % MCV 100.1 H (80.0-100.0) fL Plt Count 140 L (150-450) k/uL BUN/Creatinine Ratio 25.00 H (12.00-20.00) Ratio Glucose 120 H (70-110) mg/dL POC Glucose (mg/dL) 128 H (70-110) mg/dL Calcium 8.2 L (8.7-10.3) mg/dL 12/02/23 12/02/23 12/03/23 Range/Units 17:08 20:13 06:03 RBC (3.80-5.40) m/uL Hgb (11.4-16.0) gm/dL Hct (34.0-46.0) % MCV (80.0-100.0) fL Plt Count (150-450) k/uL BUN/Creatinine Ratio (12.00-20.00) Ratio Glucose (70-110) mg/dL POC Glucose (mg/dL) 145 H 137 H 126 H (70-110) mg/dL Calcium (8.7-10.3) mg/dL
[2023-12-03 11:45] LABS: Glucose,Whole Blood 133 mg/dL (70-110)
[2023-12-03 11:46] LABS: ALT 16 U/L (8-44); AST 20 U/L (13-35); Albumin 2.6 g/dL (3.8-4.9); Albumin/Globulin Ratio 1.37 Ratio (1.60-3.17); Alkaline Phosphatase 43 U/L (41-126); Blood Urea Nitrogen 14.7 mg/dL (9.0-27.0); Calcium 8.3 mg/dL (8.7-10.3); Carbon Dioxide 27.2 mmol/L (21.6-31.8); Chloride 106 mmol/L (96-109); Globulin 1.9 g/dL (1.6-3.3); Glucose 113 mg/dL (70-110); Potassium 4.2 mmol/L (3.5-5.5); Sodium 139 mmol/L (135-145); Total Bilirubin 0.3 mg/dL (0.3-1.2); Total Protein 4.5 g/dL (6.2-8.2)
--- NOTE | 2023-12-03 12:49 | P.GSCN ---
History of Present Illness Consult date: 12/03/23 Reason for Consult: Urinary retention Requesting physician: Mo Porter History of present illness: The patient is a 78-year-old white female who underwent ORIF of a right hip fracture on November 30, 2023. She was admitted in October 2022 with acute onset of left lower back and flank pain, associated with fever and chills. She presented to the ER, and her evaluation revealed a UTI, leukopenia, and an obstructing 3 mm calculus at the left ureterovesical junction. CT scan also showed left renal calculi measuring up to 6 mm in size. She underwent left ureteral stent insertion and was treated with antibiotics. In November 2022 she underwent removal of the stent and her left renal calculi. A ureteral calculus was not seen at that time. There was no concern of urinary retention at that time. However, she has developed urinary retention following her hip surgery and I am consulted for this reason. Specifically, she states that she did not experience an urge to void. Bladder scans were in the 400 to 500 cc range, and she was straight catheterized prior to a Acosta catheter being placed. She was not experiencing voiding difficulty prior to her hip fracture. Review of Systems - Genitourinary Genitourinary: Reports as per HPI Past Medical History Past Medical History: Atrial Fibrillation, Chest Pain / Angina, Heart Failure, Diabetes Mellitus, Hyperlipidemia, Hypertension, Osteoarthritis (OA), Renal Disease, Sleep Apnea/CPAP/BIPAP Additional Past Medical History / Comment(s): left kidney stones,. pulmonary hypertension. incontinent of urine History of Any Multi-Drug Resistant Organisms: None Reported Past Surgical History: Cardiac Ablation, Hysterectomy, Pacemaker Additional Past Surgical History / Comment(s): cystoscopy w/ left ureter stent placed,[facility] [place] Pacemaker left chest Past Anesthesia/Blood Transfusion Reactions: No Reported Reaction Additional Past Anesthesia/Blood Transfusion Reaction / Comm: no hx blood transfusions Type of Cardiac Device: Permanent Pacemaker Device Placement Date:: 2003 Past Psychological History: No Psychological Hx Reported Smoking Status: Former smoker - Past Family History Father Family Medical History: Congestive Heart Failure (CHF), COPD, Pneumonia Additional Family Medical History / Comment(s): emphysema Mother Family Medical History: Cancer Additional Family Medical History / Comment(s): alive 99, Skin CA,spine CA-dx Oct 2022 Medications and Allergies Home Medications Medication Instructions Recorded Confirmed Type Alendronate Sodium [Fosamax] 70 mg PO SCOTT 11/02/22 11/30/23 History Folic Acid 1 mg PO DAILY 11/02/22 11/30/23 History Gabapentin 300 mg PO DAILY@1400 11/02/22 11/30/23 History Gabapentin 600 mg PO BID@0900,2100 11/02/22 11/30/23 History Magnesium Oxide 400 mg PO BID-W/MEALS 11/02/22 11/30/23 History Mirabegron [Myrbetriq] 50 mg PO DAILY 11/02/22 11/30/23 History Warfarin [Coumadin] 2.5 mg PO MOFR 11/02/22 11/30/23 History Warfarin [Coumadin] 5 mg PO SUTUWETHSA 11/02/22 11/30/23 History allopurinoL 200 mg PO DAILY 11/02/22 11/30/23 History traZODone HCL [Desyrel] 50 mg PO HS 11/02/22 11/30/23 History Furosemide [Lasix] 20 mg PO DAILY 11/19/22 11/30/23 History Atorvastatin [Lipitor] 20 mg PO DAILY 11/30/23 11/30/23 History Brimonidine Tartrate [Alphagan P 1 drops LEFT EYE TID 11/30/23 11/30/23 History 0.2% Ophth Soln] Escitalopram [Lexapro] 10 mg PO DAILY 11/30/23 11/30/23 History HYDROcodone/APAP 7.5-325MG [[place] 1 - 2 tab PO Q6HR PRN #32 tab 11/30/23 Rx 7.5-325] Omeprazole 20 mg PO DAILY #30 tab 11/30/23 Rx Sennosides-Docusate Sodium 1 tab PO BID #60 tablet 11/30/23 Rx [Senokot-S] Sotalol [Betapace] 120 mg PO BID 11/30/23 11/30/23 History amLODIPine [Norvasc] 10 mg PO DAILY 11/30/23 11/30/23 History buPROPion XL [Wellbutrin XL] 150 mg PO DAILY 11/30/23 11/30/23 History busPIRone HCL [Buspar] 7.5 mg PO BID 11/30/23 11/30/23 History sitaGLIPtin [Januvia] 50 mg PO DAILY 11/30/23 11/30/23 History Allergies Allergy/AdvReac Type Severity Reaction Status Date / Time Penicillins Allergy swelling, Verified 11/30/23 11:11 arms and hands reddened and itching cefaclor [From Ceclor] AdvReac swelling, Verified 11/30/23 11:11 arms and hands reddened and itching levofloxacin [From Levaquin] AdvReac Dyspnea Verified 11/30/23 11:11 Surgical - Exam Vital Signs Pulse Ox 94 L 11/30/23 02:40 - General well developed, well nourished, no distress - Respiratory normal respiratory effort - Abdomen Abdomen: soft, non tender, no guarding, no rigid, no rebound - Psychiatric oriented to time, oriented to person, oriented to place, speech is normal, memory intact Results - Labs 12/03/23 06:40 12/03/23 06:40 Abnormal Lab Results - Last 24 Hours (Table) 12/02/23 12/02/23 12/02/23 Range/Units 06:47 06:47 11:59 RBC 2.43 L (3.80-5.40) m/uL Hgb 8.0 L D (11.4-16.0) gm/dL Hct 24.3 L (34.0-46.0) % MCV 100.1 H (80.0-100.0) fL Plt Count 140 L (150-450) k/uL BUN/Creatinine Ratio 25.00 H (12.00-20.00) Ratio Glucose 120 H (70-110) mg/dL POC Glucose (mg/dL) 128 H (70-110) mg/dL Calcium 8.2 L (8.7-10.3) mg/dL 12/02/23 12/02/23 12/03/23 Range/Units 17:08 20:13 06:03 RBC (3.80-5.40) m/uL Hgb (11.4-16.0) gm/dL Hct (34.0-46.0) % MCV (80.0-100.0) fL Plt Count (150-450) k/uL BUN/Creatinine Ratio (12.00-20.00) Ratio Glucose (70-110) mg/dL POC Glucose (mg/dL) 145 H 137 H 126 H (70-110) mg/dL Calcium (8.7-10.3) mg/dL Diabetes panel 12/02/23 Range/Units 06:47 Sodium 140 (135-145) mmol/L Potassium 4.4 (3.5-5.5) mmol/L Chloride 106 (96-109) mmol/L Carbon Dioxide 27.3 (21.6-31.8) mmol/L BUN 20.0 (9.0-27.0) mg/dL Creatinine 0.8 (0.6-1.5) mg/dL Glucose 120 H (70-110) mg/dL Calcium 8.2 L (8.7-10.3) mg/dL Calcium panel 12/02/23 Range/Units 06:47 Calcium 8.2 L (8.7-10.3) mg/dL Pituitary panel 12/02/23 Range/Units 06:47 Sodium 140 (135-145) mmol/L Potassium 4.4 (3.5-5.5) mmol/L Chloride 106 (96-109) mmol/L Carbon Dioxide 27.3 (21.6-31.8) mmol/L BUN 20.0 (9.0-27.0) mg/dL Creatinine 0.8 (0.6-1.5) mg/dL Glucose 120 H (70-110) mg/dL Calcium 8.2 L (8.7-10.3) mg/dL Adrenal panel 12/02/23 Range/Units 06:47 Sodium 140 (135-145) mmol/L Potassium 4.4 (3.5-5.5) mmol/L Chloride 106 (96-109) mmol/L Carbon Dioxide 27.3 (21.6-31.8) mmol/L BUN 20.0 (9.0-27.0) mg/dL Creatinine 0.8 (0.6-1.5) mg/dL Glucose 120 H (70-110) mg/dL Calcium 8.2 L (8.7-10.3) mg/dL Assessment and Plan (1) Retention of urine, unspecified Current Visit: Yes Status: Acute Code(s): R33.9 - RETENTION OF URINE, UNSPECIFIED SNOMED Code(s): 861464040 Plan: The patient is to be transferred to a rehab facility later today. The Acosta catheter will be removed removed for a repeat voiding trial.
[2023-12-03] MEDS: MAGNESIUM SULFATE-D5W PMX 1 GM in DEXTROSE/WATER 1 100ML.BAG IVPB SCH (13:10)
[2023-12-03 13:22] LABS: INR 1.5 (<1.2); Prothrombin Time 15.6 sec (10.0-12.5)
[2023-12-03 17:08] LABS: Glucose,Whole Blood 124 mg/dL (70-110)
[2023-12-03 18:56] LABS: % Iron Saturation 5.53 (12.00-45.00)
[2023-12-03 20:36] LABS: Glucose,Whole Blood 158 mg/dL (70-110)
[2023-12-04 05:37] LABS: Glucose,Whole Blood 183 mg/dL (70-110)
[2023-12-04 08:48] LABS: HCT 25.8 % (34.0-46.0); HGB 8.6 gm/dL (11.4-16.0); MCH 32.6 pg (25.0-35.0); MCHC 33.5 g/dL (31.0-37.0); MCV 97.2 fL (80.0-100.0); Mean Platelet Volume 8.4; Platelet Count 177 k/uL (150-450); RBC 2.65 m/uL (3.80-5.40); RDW 14.7 % (11.5-15.5); WBC 8.9 k/uL (3.8-10.6)
[2023-12-04 08:50] LABS: ALT 20 U/L (4-34); AST 27 U/L (14-36); African American GFR (CKD) >90 (>60 ml/min/1.73 sqM); Albumin 2.6 g/dL (3.5-5.0); Alkaline Phosphatase 55 U/L (38-126); Anion Gap 2 mmol/L; Blood Urea Nitrogen 15 mg/dL (7-17); Calcium 8.4 mg/dL (8.4-10.2); Carbon Dioxide 30 mmol/L (22-30); Chloride 104 mmol/L (98-107); Globulin 2.6 g/dL; Glucose 143 mg/dL (74-99); Magnesium 1.7 mg/dL (1.6-2.3); Non-African American GFR(CKD) 87 (>60 ml/min/1.73 sqM); Potassium 4.2 mmol/L (3.5-5.1); Sodium 136 mmol/L (137-145); Total Bilirubin 0.6 mg/dL (0.2-1.3); Total Protein 5.2 g/dL (6.3-8.2)
[2023-12-04] MEDS: IPRATROPIUM-ALBUTEROL 3 ML NEB INHALATION PRN (09:09)
--- NOTE | 2023-12-04 10:02 | P.PN ---
Subjective Progress Note Date: 12/04/23 Hospital course:: Patient is a very pleasant 78-year-old female with a past medical history of CAD status post permanent pacemaker placement in 2003, congestive heart failure, paroxysmal atrial fibrillation status postcardiac ablation on anticoagulation with Coumadin, hypertension, hyperlipidemia, pulmonary hypertension, obstructive sleep apnea CPAP dependent, and type II [id number]-lahdqthgv diabetes mellitus. She was transferred to our facility from [facility] secondary to intertrochanteric right hip fracture resulting from mechanical trip and fall. She is currently admitted under orthopedic surgery team with Dr. Hall and we were consulted for medical clearance and medical management throughout her hospitalization. Vital signs reviewed. Blood pressure currently 144/77, heart rate 72, respiratory rate 18, temp 98.1 F, and SpO2 of 96% on room air. Morning labs reviewed. CBC showing stable hemoglobin of 12.1 and mild thrombocytopenia with platelet count of 142. Coagulation profile shows therapeutic INR at 2.6 (which is therapeutic for patient's goal level however places patient at increased risk of bleeding during and after surgical procedure). BMP showing mild hyperchloremia with chloride of 108 and hy perglycemia with glucose of 154 otherwise unremarkable. EKG completed showing sinus rhythm at 76 bpm with nonspecific T wave abnormalities but showing no significant T wave or ST abnormalities concerning for acute ischemia. Chest x- ray reviewed and was negative for acute cardiopulmonary process. Patient was admitted under orthopedic surgery team and we were consulted for medical management. Patient underwent surgical repair of right intertrochanteric femoral fracture with intramedullary nailing with Dr. Hall on 11/30/2023. Physical exam: Patient was seen and fully evaluated at bedside. She is postoperative day 4. Status posttransfusion of 1 unit PRBCs hemoglobin is stable at 8.6, however patient has developed increased shortness of breath and oxygen needs and is now on 4 L O2 via nasal cannula with SpO2 of 94%. Orders placed for chest x-ray and proBNP. Patient denies chest pain, palpitations, cough or congestion, or any other complaints at this time. She reports pain in right hip is mild but currently controlled with current pain medication regimen. Vital signs reviewed and stable. General: Nontoxic, no distress and appears stated age. Obese. Derm: Skin warm and dry, normal coloration for ethnicity. Head: Atraumatic, normocephalic and symmetric. Eyes: EOMs intact, no lid lag, and anicteric sclera Mouth: no lip lesions, mucus membranes moist Cardiovascular: regular rate and rhythm with normal S1S2, soft systolic murmur, positive posterior tibial pulses bilaterally, and cap refill < 2 seconds. Pacemaker left anterior chest. Lungs: Respirations even, regular, and unlabored on room air. Lungs CTA bilaterally, no rhonchi, no rales, no wheezing, and no accessory muscle usage. Abdominal: soft, nontender to palpation, no guarding, no appreciable organomegaly Ext: No gross muscle atrophy, no edema, no contractures. Movement and sensation intact. Postsurgical dressing intact right lateral hip recently changed by RN. Patient with mild bruising to right lateral hip and thigh with moderate swelling, no signs of hematoma formation. Neuro: Speech clear, face symmetrical and CN II-XII grossly intact with no noted focal neuro deficits Psych: Alert and oriented to person, place, time, and situation. Appropriate and pleasant affect. Assessment and Plan of Care: CHF exacerbation -Echocardiogram to be completed to determine type of CHF. -X-ray showing left lower lobe infiltrate and small pleural effusion consistent with CHF. -proBNP 2410. -Orders placed for Lasix 40 mg IVP twice daily. -Continue telemetry monitoring. -Oxygenation as needed to maintain SpO2 equal to or greater than 90%. -Replace for strict I's and O's. Acute postoperative blood loss anemia, greater than expected. Stable at this time. Iron deficiency anemia Preoperative hemoglobin of 11.8 decreasing down to hemoglobin of 6.4.. Patient is status post 1 unit PRBCs and hemoglobin stable at 8.6. Iron profile showing iron deficiency. Patient started on Ferrlecit 125 mg daily, will discharge on ferrous sulfate 325 mg daily. Orders placed for transfusion of 1 unit PRBCs No signs of active bleeding or hematoma formation, discussed with orthopedic surgeon, he is not recommending repeat CT at this time. Will repeat hemoglobin tomorrow morning and transfuse if needed for any hemogl obins less than 7. Hypomagnesemia Magnesium 1.7 orders placed for magnesium sulfate 2 g IVPB x 1 dose. Order placed for repeat morning magnesium level to monitor for improvement/resolution. Additional orders to be placed if indicated based upon these results. Status post fixation of right intertrochanteric hip fracture with short intramedullary hip screw. Management per primary admitting orthopedic surgery team including DVT prophylaxis, pain management, wound/dressing management, weightbearing, and PT/OT. Continue to hold Coumadin at this time, patient requiring transfusion of PRBCs. Patient may resume Coumadin once medically stable and cleared by primary admitting orthopedic surgery team. CAD status post permanent pacemaker placement in 2003 Congestive heart failure Paroxysmal atrial fibrillation status postcardiac ablation on anticoagulation with Coumadin Hypertension Hyperlipidemia -EKG completed showing sinus rhythm at 76 bpm with nonspecific T wave abnormalities but showing no significant T wave or ST abnormalities concerning for acute ischemia upon personal review and interpretation. -Patient to continue daily medication regimen with amlodipine 10 mg daily, atorvastatin 20 mg daily, and sotalol 120 mg twice daily. -Continue Lasix 20 mg daily. -Continue to hold Coumadin at this time, patient requiring transfusion of PRBCs. Patient may resume Coumadin once medically stable and cleared by primary admitting orthopedic surgery team. Pulmonary hypertension Pulmonary fibrosis Obstructive sleep apnea CPAP dependent -Chest x-ray reviewed and was negative for acute cardiopulmonary process. -Order placed for CPAP nightly and while napping. -Order placed for DuoNebs as needed for shortness of breath and/or wheezing. -Order placed for incentive spirometry, encourage use 10-15 times hourly while awake. Type II [id number] diabetes mellitus. -Continue to hold oral hypoglycemic Januvia and continue glycemic protocol with NovoLog sliding scale. Data and imaging reviewed: Morning labs reviewed and stable. CBC showing stable hemoglobin status post transfusion 1 unit PRBCs with hemoglobin of 8.6 otherwise normal findings. BMP unremarkable. Magnesium slightly low at 1.7. Liver profile unremarkable. proBNP 2410. X-ray showing left lower lobe infiltrate and small pleural effusion consistent with CHF. Vital signs reviewed and stable. Blood pressure 110/65, heart rate 69, respiratory rate 18, temp 98.6 F, and SpO2 of 90% on 3 L reported to drop down to 87%, oxygen increased to 4 L maintaining at 94%. Patient to be discharged to [facility] for rehab once medically stable. Thank you for allowing us to participate in the care of this pleasant patient. Do not hesitate to contact us with questions. Someone can be reached from the [facility] hospitalist group all hours of the day at [phone] or via perfect serve. Patient was seen independently by Nurse Practitioner. This document was prepared using Ep[employer] dictation software. Please allow for errors in supervisor quilting while rare they do occur. I reviewed the documentation as provided by the DARLENE above, who is the original author of this note. I agree with the documented assessment and plan, with the following changes: none Objective - Vital Signs Vital signs: Vital Signs Temp 98.6 F 12/04/23 06:58 Pulse 69 12/04/23 06:58 Resp 18 12/04/23 06:58 BP 110/65 12/04/23 06:58 Pulse Ox 90 L 12/04/23 06:58 FiO2 Intake & Output 12/03/23 12/04/23 12/04/23 18:59 06:59 18:59 Intake Total 2190 1200 Balance 2190 1200 Intake: Intake, IV Titration 1700 1200 Amount Lactated Ringers 1,000 ml 1500 1200 @ 100 mls/hr IV .Q10H [facility] Rx#:[id number] Magnesium Sulfate-D5w Pmx 200 1 gm In Dextrose/Water 1 100ml.bag @ 100 mls/hr IVPB Q1H [facility] Rx#: [id number] Oral 180 Blood Product 310 Rc As-1 Unit 310 [id number] Other: # Voids 3 2 - Labs CBC & Chem 7: 12/04/23 07:57 12/04/23 07:57 Labs: Abnormal Lab Results - Last 24 Hours (Table) 12/03/23 12/03/23 12/03/23 Range/Units 06:40 06:40 11:44 RBC 1.98 L (4.10-5.20) X 10*6/uL Hgb 6.4 A* (12.0-15.0) g/dL Hct 19.9 A* (37.2-46.3) % MCV 100.5 H (80.0-97.0) FL MCH 32.3 H (27.0-32.0) pg Plt Count 137 L (140-440) X 10*3/uL PT (10.0-12.5) sec INR (<1.2) BUN/Creatinine Ratio 24.50 H (12.00-20.00) Ratio Glucose 113 H (70-110) mg/dL POC Glucose (mg/dL) 133 H (70-110) mg/dL Calcium 8.3 L (8.7-10.3) mg/dL Iron (50-170) UG/DL % Saturation (12.00-45.00) Transferrin (204.0-354.0) mg/dL Total Protein 4.5 L (6.2-8.2) g/dL Albumin 2.6 L (3.8-4.9) g/dL Albumin/Globulin Ratio 1.37 L (1.60-3.17) Ratio Crossmatch 12/03/23 12/03/23 12/03/23 Range/Units 12:30 12:30 12:33 RBC (4.10-5.20) X 10*6/uL Hgb (12.0-15.0) g/dL Hct (37.2-46.3) % MCV (80.0-97.0) FL MCH (27.0-32.0) pg Plt Count (140-440) X 10*3/uL PT 15.6 H (10.0-12.5) sec INR 1.5 H (<1.2) BUN/Creatinine Ratio (12.00-20.00) Ratio Glucose (70-110) mg/dL POC Glucose (mg/dL) (70-110) mg/dL Calcium (8.7-10.3) mg/dL Iron 14 L (50-170) UG/DL % Saturation 5.53 L (12.00-45.00) Transferrin 181.0 L (204.0-354.0) mg/dL Total Protein (6.2-8.2) g/dL Albumin (3.8-4.9) g/dL Albumin/Globulin Ratio (1.60-3.17) Ratio Crossmatch See Detail 12/03/23 12/03/23 12/04/23 Range/Units 17:06 20:34 05:34 RBC (4.10-5.20) X 10*6/uL Hgb (12.0-15.0) g/dL Hct (37.2-46.3) % MCV (80.0-97.0) FL MCH (27.0-32.0) pg Plt Count (140-440) X 10*3/uL PT (10.0-12.5) sec INR (<1.2) BUN/Creatinine Ratio (12.00-20.00) Ratio Glucose (70-110) mg/dL POC Glucose (mg/dL) 124 H 158 H 183 H (70-110) mg/dL Calcium (8.7-10.3) mg/dL Iron (50-170) UG/DL % Saturation (12.00-45.00) Transferrin (204.0-354.0) mg/dL Total Protein (6.2-8.2) g/dL Albumin (3.8-4.9) g/dL Albumin/Globulin Ratio (1.60-3.17) Ratio Crossmatch
--- NOTE | 2023-12-04 10:05 | P.PN ---
Subjective Progress Note Date: 12/04/23 Principal diagnosis: Urinary retention The patient is a 78-year-old white female who underwent ORIF of a right hip fracture on November 30, 2023. She developed postoperative urinary retention. The Acosta catheter was removed yesterday, and she is voiding without difficulty. Her most recent postvoid residual is 224 cc. Objective - Vital Signs Vital signs: Vital Signs Temp 98.6 F 12/04/23 06:58 Pulse 80 12/04/23 09:19 Resp 18 12/04/23 06:58 BP 110/65 12/04/23 06:58 Pulse Ox 97 12/04/23 09:09 FiO2 Intake & Output 12/03/23 12/04/23 12/04/23 18:59 06:59 18:59 Intake Total 2190 1200 Balance 2190 1200 Intake: Intake, IV Titration 1700 1200 Amount Lactated Ringers 1,000 ml 1500 1200 @ 100 mls/hr IV .Q10H [facility] Rx#:[id number] Magnesium Sulfate-D5w Pmx 200 1 gm In Dextrose/Water 1 100ml.bag @ 100 mls/hr IVPB Q1H [facility] Rx#: [id number] Oral 180 Blood Product 310 Rc As-1 Unit 310 [id number] Other: # Voids 3 2 - Constitutional General appearance: Present: average body habitus, cooperative, mild distress - Psychiatric Psychiatric: Present: A&O x's 3 - Labs CBC & Chem 7: 12/04/23 07:57 12/04/23 07:57 Labs: Abnormal Lab Results - Last 24 Hours (Table) 12/03/23 12/03/23 12/03/23 Range/Units 06:40 06:40 11:44 RBC 1.98 L (4.10-5.20) X 10*6/uL Hgb 6.4 A* (12.0-15.0) g/dL Hct 19.9 A* (37.2-46.3) % MCV 100.5 H (80.0-97.0) FL MCH 32.3 H (27.0-32.0) pg Plt Count 137 L (140-440) X 10*3/uL PT (10.0-12.5) sec INR (<1.2) Sodium (137-145) mmol/L BUN/Creatinine Ratio 24.50 H (12.00-20.00) Ratio Glucose 113 H (70-110) mg/dL POC Glucose (mg/dL) 133 H (70-110) mg/dL Calcium 8.3 L (8.7-10.3) mg/dL Iron (50-170) UG/DL % Saturation (12.00-45.00) Transferrin (204.0-354.0) mg/dL Total Protein 4.5 L (6.2-8.2) g/dL Albumin 2.6 L (3.8-4.9) g/dL Albumin/Globulin Ratio 1.37 L (1.60-3.17) Ratio Crossmatch 12/03/23 12/03/23 12/03/23 Range/Units 12:30 12:30 12:33 RBC (4.10-5.20) X 10*6/uL Hgb (12.0-15.0) g/dL Hct (37.2-46.3) % MCV (80.0-97.0) FL MCH (27.0-32.0) pg Plt Count (140-440) X 10*3/uL PT 15.6 H (10.0-12.5) sec INR 1.5 H (<1.2) Sodium (137-145) mmol/L BUN/Creatinine Ratio (12.00-20.00) Ratio Glucose (70-110) mg/dL POC Glucose (mg/dL) (70-110) mg/dL Calcium (8.7-10.3) mg/dL Iron 14 L (50-170) UG/DL % Saturation 5.53 L (12.00-45.00) Transferrin 181.0 L (204.0-354.0) mg/dL Total Protein (6.2-8.2) g/dL Albumin (3.8-4.9) g/dL Albumin/Globulin Ratio (1.60-3.17) Ratio Crossmatch See Detail 12/03/23 12/03/23 12/04/23 Range/Units 17:06 20:34 05:34 RBC (4.10-5.20) X 10*6/uL Hgb (12.0-15.0) g/dL Hct (37.2-46.3) % MCV (80.0-97.0) FL MCH (27.0-32.0) pg Plt Count (140-440) X 10*3/uL PT (10.0-12.5) sec INR (<1.2) Sodium (137-145) mmol/L BUN/Creatinine Ratio (12.00-20.00) Ratio Glucose (70-110) mg/dL POC Glucose (mg/dL) 124 H 158 H 183 H (70-110) mg/dL Calcium (8.7-10.3) mg/dL Iron (50-170) UG/DL % Saturation (12.00-45.00) Transferrin (204.0-354.0) mg/dL Total Protein (6.2-8.2) g/dL Albumin (3.8-4.9) g/dL Albumin/Globulin Ratio (1.60-3.17) Ratio Crossmatch 12/04/23 12/04/23 Range/Units 07:57 07:57 RBC 2.65 L (4.10-5.20) X 10*6/uL Hgb 8.6 L (12.0-15.0) g/dL Hct 25.8 L (37.2-46.3) % MCV (80.0-97.0) FL MCH (27.0-32.0) pg Plt Count (140-440) X 10*3/uL PT (10.0-12.5) sec INR (<1.2) Sodium 136 L (137-145) mmol/L BUN/Creatinine Ratio (12.00-20.00) Ratio Glucose 143 H (70-110) mg/dL POC Glucose (mg/dL) (70-110) mg/dL Calcium (8.7-10.3) mg/dL Iron (50-170) UG/DL % Saturation (12.00-45.00) Transferrin (204.0-354.0) mg/dL Total Protein 5.2 L (6.2-8.2) g/dL Albumin 2.6 L (3.8-4.9) g/dL Albumin/Globulin Ratio (1.60-3.17) Ratio Crossmatch Assessment and Plan (1) Retention of urine, unspecified Current Visit: Yes Status: Acute Code(s): R33.9 - RETENTION OF URINE, UNSPECIFIED SNOMED Code(s): 228405051 Plan: The patient has experienced some incontinence but is emptying her bladder adequately. Acosta catheter replacement will be unnecessary, and she will follow-up with me as needed. Please notify me if I can be of any further assistance.
[2023-12-04] MEDS: SODIUM FERRIC GLUCONAT-SUCROSE 125 MG in SODIUM CHLORIDE 0.9% 100 ML IVPB SCH (10:15)
--- NOTE | 2023-12-04 10:29 | XR ---
EXAMINATION TYPE: XR chest 1V portable DATE OF EXAM: 12/04/2023 COMPARISON: 11/30/2023 HISTORY: Shortness of breath TECHNIQUE: Single frontal view of the chest is obtained. FINDINGS: Diffuse interstitial pattern with small effusion and left lower lobe consolidation. Cardia c device noted. Heart mildly enlarged. Arthropathy of the shoulders. Degenerative change of the spine . IMPRESSION: 1. Left lower lobe infiltrate is new with small left effusion correlate for pneumonia versus mild CHF .
[2023-12-04 11:38] LABS: Glucose,Whole Blood 142 mg/dL (70-110)
[2023-12-04] MEDS: MAGNESIUM SULFATE-D5W PMX 1 GM in DEXTROSE/WATER 1 100ML.BAG IVPB SCH (11:42)
--- NOTE | 2023-12-04 12:08 | P.PN ---
Subjective Progress Note Date: 12/04/23 Events over the last 24 hours noted. The patient was transfused yesterday for a low hemoglobin and today's having some respiratory issues requiring Lasix. In regards to her hip there was some serosanguineous drainage per nursing. Objective - Vital Signs Vital signs: Vital Signs Temp 98.6 F 12/04/23 06:58 Pulse 80 12/04/23 09:19 Resp 18 12/04/23 06:58 BP 110/65 12/04/23 06:58 Pulse Ox 97 12/04/23 09:09 FiO2 Intake & Output 12/03/23 12/04/23 12/04/23 18:59 06:59 18:59 Intake Total 2190 1200 Balance 2190 1200 Intake: Intake, IV Titration 1700 1200 Amount Lactated Ringers 1,000 ml 1500 1200 @ 100 mls/hr IV .Q10H [facility] Rx#:[id number] Magnesium Sulfate-D5w Pmx 200 1 gm In Dextrose/Water 1 100ml.bag @ 100 mls/hr IVPB Q1H [facility] Rx#: [id number] Oral 180 Blood Product 310 Rc As-1 Unit 310 [id number] Other: # Voids 3 2 - Exam The patient is resting in her bed. She is alert and able to answer questions. On inspection there is swelling in the leg but the thigh is soft and compressible. There is no active drainage or bleeding from her incisions. She is able to actively plantarflex and dorsiflex her ankle and her toes. - Labs CBC & Chem 7: 12/04/23 07:57 12/04/23 07:57 Labs: Abnormal Lab Results - Last 24 Hours (Table) 12/03/23 12/03/23 12/03/23 Range/Units 12:30 12:30 12:33 RBC (3.80-5.40) m/uL Hgb (11.4-16.0) gm/dL Hct (34.0-46.0) % PT 15.6 H (10.0-12.5) sec INR 1.5 H (<1.2) Sodium (137-145) mmol/L Glucose (74-99) mg/dL POC Glucose (mg/dL) (70-110) mg/dL Iron 14 L (50-170) UG/DL % Saturation 5.53 L (12.00-45.00) Transferrin 181.0 L (204.0-354.0) mg/dL Total Protein (6.3-8.2) g/dL Albumin (3.5-5.0) g/dL Crossmatch See Detail 12/03/23 12/03/23 12/04/23 Range/Units 17:06 20:34 05:34 RBC (3.80-5.40) m/uL Hgb (11.4-16.0) gm/dL Hct (34.0-46.0) % PT (10.0-12.5) sec INR (<1.2) Sodium (137-145) mmol/L Glucose (74-99) mg/dL POC Glucose (mg/dL) 124 H 158 H 183 H (70-110) mg/dL Iron (50-170) UG/DL % Saturation (12.00-45.00) Transferrin (204.0-354.0) mg/dL Total Protein (6.3-8.2) g/dL Albumin (3.5-5.0) g/dL Crossmatch 12/04/23 12/04/23 12/04/23 Range/Units 07:57 07:57 11:36 RBC 2.65 L (3.80-5.40) m/uL Hgb 8.6 L (11.4-16.0) gm/dL Hct 25.8 L (34.0-46.0) % PT (10.0-12.5) sec INR (<1.2) Sodium 136 L (137-145) mmol/L Glucose 143 H (74-99) mg/dL POC Glucose (mg/dL) 142 H (70-110) mg/dL Iron (50-170) UG/DL % Saturation (12.00-45.00) Transferrin (204.0-354.0) mg/dL Total Protein 5.2 L (6.3-8.2) g/dL Albumin 2.6 L (3.5-5.0) g/dL Crossmatch Assessment and Plan Assessment: POD #4 status post right hip gamma nail for intertrochanteric hip fracture Plan: Continue treatment as outlined previously. The patient is okay to discharge from orthopedic standpoint once she is medically stable.
[2023-12-04] MEDS: METOCLOPRAMIDE 5 MG/ML 2 ML VIAL IVP PRN (16:48)
[2023-12-04 18:35] LABS: Glucose,Whole Blood 136 mg/dL (70-110)
[2023-12-04 20:16] LABS: Glucose,Whole Blood 169 mg/dL (70-110)
[2023-12-04] MEDS: FUROSEMIDE 10 MG/ML 4 ML VIAL IV SCH (21:04)
[2023-12-05 05:54] LABS: Glucose,Whole Blood 141 mg/dL (70-110)
[2023-12-05 08:51] VITALS: BMI 40.7
--- NOTE | 2023-12-05 09:18 | CDI ---
Documentation Clarification Form Date: 12/05/2023 09:08:53 AM From: Celeste Gomez RN, CCDS Phone: [phone] Admit Date: 11/30/2023 03:25:00 AM Patient Name: Karen Palm Visit Number: [id number] Discharge Date: ATTENTION: The Clinical Documentation Specialists (CDI) and [facility] Coding Staff appreciate your assistance in clarifying documentation. Please respond to the clarification below the line at the bottom and electronically sign. The CDI & [facility] Coding staff will review the response and follow-up if needed. Please note: Queries are made part of the Legal Health Record. If you have any questions, please contact the author of this message via ITS. Dr. Marques Mccall Postoperative urinary retention is documented in the Urology progress note on 12/04/23 and patient had Right hip gamma nail for intertrochanteric hip fracture on 11/30/23. Additional clarification is requested regarding the relationship, if any, that exists between the diagnosis and the procedure. Patients Admitting Diagnosis: Right intertrochanteric hip fracture Post-Operative Diagnosis: Same Procedure performed: Operative fixation of right intertrochanteric hip fracture with short intramedullary hip screw History/Risk Factors: Congestive heart failure, Paroxysmal atrial fibrillation, Type 2 diabetes, Morbid obesity with BMI of 40.7, incontinent of urine Clinical Indicators: 78-year-old female with prior history of UTI, obstructing 3 mm calculus. She underwent left ureteral stent insertion and was treated with antibiotics, and removal of stent in November 2022. She has developed urinary retention following her hip surgery. Specifically, she states that she did not experience an urge to void. Bladder scans were in the 400 to 500 cc range, Acosta catheter being placed. 12/03 Labs: WBC 6.84, HGB 6.4 HCT 19.9 BUN 14.7 CR 0.6 GFR 92 Treatment: Remove Acosta catheter for a repeat voiding trial Monitor postvoid residual What relationship, if any, exists between the diagnosis postoperative urinary retention of and the procedure: [ ] Postoperative urinary retention is a complication of surgical procedure [ ] Postoperative urinary retention is an expected outcome of the surgical procedure [ ] Postoperative urinary retention is related to patients co-morbid condition(s) of [insert co-morbid dxs] & not a complication of the procedure [ ] Other please specify ____ [X ] Unable to determine (Template Last Revised: December 2020) MTDD
[2023-12-05 11:56] LABS: Glucose,Whole Blood 126 mg/dL (70-110)
[2023-12-05 16:58] LABS: Glucose,Whole Blood 142 mg/dL (70-110)
--- NOTE | 2023-12-05 18:09 | P.PN ---
Subjective Progress Note Date: 12/05/23 Hospital course:: Patient is a very pleasant 78-year-old female with a past medical history of CAD status post permanent pacemaker placement in 2003, congestive heart failure, paroxysmal atrial fibrillation status postcardiac ablation on anticoagulation with Coumadin, hypertension, hyperlipidemia, pulmonary hypertension, obstructive sleep apnea CPAP dependent, and type II nei-tokwnme-qrfbilway diabetes mellitus. She was transferred to our facility from [facility] secondary to intertrochanteric right hip fracture resulting from mechanical trip and fall. She is currently admitted under orthopedic surgery team with Dr. Hall and we were consulted for medical clearance and medical management throughout her hospitalization. Vital signs reviewed. Blood pressure currently 144/77, heart rate 72, respiratory rate 18, temp 98.1 F, and SpO2 of 96% on room air. Morning labs reviewed. CBC showing stable hemoglobin of 12.1 and mild thrombocytopenia with platelet count of 142. Coagulation profile shows therapeutic INR at 2.6 (which is therapeutic for patient's goal level however places patient at increased risk of bleeding during and after surgical procedure). BMP showing mild hyperchloremia with chloride of 108 and hy perglycemia with glucose of 154 otherwise unremarkable. EKG completed showing sinus rhythm at 76 bpm with nonspecific T wave abnormalities but showing no significant T wave or ST abnormalities concerning for acute ischemia. Chest x- ray reviewed and was negative for acute cardiopulmonary process. Patient was admitted under orthopedic surgery team and we were consulted for medical management. Patient underwent surgical repair of right intertrochanteric femoral fracture with intramedullary nailing with Dr. Hall on 11/30/2023. Physical exam: Patient was seen and fully evaluated at bedside. She is postoperative day 5. She reports feeling much better today and overall looks better. Her oxygen needs are decreasing and she is 95% on 3 L, will titrate down as patient tolerates. We will continue IV Lasix for an additional 24 hours and likely change back to her oral Lasix tomorrow morning. Patient reports breathing ray r and only mild to moderate postoperative pain improved today. She continues to have no active signs of bleeding or signs of hematoma formation. Awaiting daily labs to result. Vital signs reviewed and stable. General: Nontoxic, no distress and appears stated age. Obese. Derm: Skin warm and dry, normal coloration for ethnicity. Head: Atraumatic, normocephalic and symmetric. Eyes: EOMs intact, no lid lag, and anicteric sclera Mouth: no lip lesions, mucus membranes moist Cardiovascular: regular rate and rhythm with normal S1S2, soft systolic murmur, positive posterior tibial pulses bilaterally, and cap refill < 2 seconds. Pacemaker left anterior chest. Lungs: Respirations even, regular, and unlabored on supplemental oxygen. Lungs CTA bilaterally, no rhonchi, no rales, no wheezing, and no accessory muscle usage. Abdominal: soft, nontender to palpation, no guarding, no appreciable or ganomegaly Ext: No gross muscle atrophy, no edema, no contractures. Movement and sensation intact. Postsurgical dressing intact right lateral hip recently changed by RN. Patient with mild bruising to right lateral hip and thigh with moderate swelling, no signs of hematoma formation. Neuro: Speech clear, face symmetrical and CN II-XII grossly intact with no noted focal neuro deficits Psych: Alert and oriented to person, place, time, and situation. Appropriate and pleasant affect. Assessment and Plan of Care: CHF exacerbation CAD status post permanent pacemaker placement in 2003 Congestive heart failure Paroxysmal atrial fibrillation status postcardiac ablation on anticoagulation with Coumadin Hypertension Hyperlipidemia -EKG showing sinus rhythm at 76 bpm with nonspecific T wave abnormalities but sh owing no significant T wave or ST abnormalities concerning for acute ischemia. -X-ray showing left lower lobe infiltrate and small pleural effusion consistent with CHF. -proBNP 2410. -Patient to continue daily medication regimen with amlodipine 10 mg daily, atorvastatin 20 mg daily, and sotalol 120 mg twice daily. -Oral Lasix held and patient placed on IV Lasix 40 mg IVP twice daily. -Consult placed to cardiology -Continue to hold Coumadin at this time, patient required transfusion of PRBCs x 1 unit. Patient may resume Coumadin once medically stable and cleared by primary admitting orthopedic surgery team. -Echocardiogram completed and pending results. -Orders placed for Lasix 40 mg IVP twice daily. -Continue telemetry monitoring. -Oxygenation as needed to maintain SpO2 equal to or greater than 90%. -Continue to monitor intake and output closely, urinary output 800 cc over the past 24 hours. Acute postoperative blood loss anemia, greater than expected. Stable at this time. Iron deficiency anemia Preoperative hemoglobin of 11.8 decreasing down to hemoglobin of 6.4.. Patient is status post 1 unit PRBCs and hemoglobin stable at 8.6. Iron profile showing iron deficiency. Patient started on Ferrlecit 125 mg daily day 2 of 3 and done well will discharge on ferrous sulfate 325 mg daily. No signs of active bleeding or hematoma formation, discussed with orthopedic surgeon, he is not recommending repeat CT at this time. Will repeat hemoglobin tomorrow morning and transfuse if needed for any hemoglobins less than 7. Hypomagnesemia Order placed for repeat morning magnesium level to monitor for improvement/resolution. Additional orders to be placed if indicated based upon these results. Status post fixation of right intertrochanteric hip fracture with short intram edullary hip screw. Management per primary admitting orthopedic surgery team including DVT prophylaxis, pain management, wound/dressing management, weightbearing, and PT/OT. Continue to hold Coumadin at this time, patient requiring transfusion of PRBCs. Patient may resume Coumadin once medically stable and cleared by primary admitting orthopedic surgery team. Pulmonary hypertension Pulmonary fibrosis Obstructive sleep apnea CPAP dependent -Chest x-ray reviewed and was negative for acute cardiopulmonary process. -Order placed for CPAP nightly and while napping. -Order placed for DuoNebs as needed for shortness of breath and/or wheezing. -Order placed for incentive spirometry, encourage use 10-15 times hourly while awake. Type II dhn-ifasjng-numqhmbjs diabetes mellitus. -Continue to hold oral hypoglycemic Januvia and continue glycemic protocol with NovoLog sliding scale. Data and imaging reviewed: Morning labs pending. Blood pressure 125/63, heart rate 68, respiratory rate 19, temp 97.7 F, and SpO2 of 90% on 4 L. Echocardiogram completed and pending results Vital signs reviewed and stable. Blood pressure 110/65, heart rate 69, respiratory rate 18, temp 98.6 F, and SpO2 of 90% on 3 L reported to drop down to 87%, oxygen increased to 4 L maintaining at 94%. Patient to be discharged to [facility] for rehab once medically stable. Thank you for allowing us to participate in the care of this pleasant patient. Do not hesitate to contact us with questions. Someone can be reached from the [facility] hospitalist group all hours of the day at [phone] or via [employer]. Patient was seen independently by Nurse Practitioner. This document was prepared using [employer] dictation software. Please allow for errors in mirror silverer while rare they do occur. I reviewed the documentation as provided by the DARLENE above, who is the original author of this note. I agree with the documented assessment and plan, with the following changes: none Objective - Vital Signs Vital signs: Vital Signs Temp 97.7 F 12/05/23 06:55 Pulse 68 12/05/23 06:55 Resp 19 12/05/23 06:55 BP 125/63 12/05/23 06:55 Pulse Ox 95 12/05/23 07:38 FiO2 3 12/05/23 07:38 Intake & Output 12/04/23 12/05/23 12/05/23 18:59 06:59 18:59 Output Total 800 Balance -800 Weight 104.326 kg Output: Urine 800 Other: Voiding Method Bedside Commode Bedside Commode External Catheter External Catheter # Bowel Movements 0 - Labs CBC & Chem 7: 12/05/23 18:10 12/05/23 18:10 Labs: Abnormal Lab Results - Last 24 Hours (Table) 12/04/23 12/04/23 12/04/23 Range/Units 11:36 16:33 20:14 POC Glucose (mg/dL) 142 H 136 H 169 H (70-110) mg/dL 12/05/23 Range/Units 05:52 POC Glucose (mg/dL) 141 H (70-110) mg/dL
[2023-12-05 18:22] LABS: HGB 8.7 gm/dL (11.4-16.0); MCH 32.2 pg (25.0-35.0); MCHC 33.4 g/dL (31.0-37.0); MCV 96.5 fL (80.0-100.0); Mean Platelet Volume 8.2; Platelet Count 229 k/uL (150-450); RDW 14.5 % (11.5-15.5); WBC 9.8 k/uL (3.8-10.6)
[2023-12-05 18:31] LABS: ALT 21 U/L (4-34); AST 27 U/L (14-36); African American GFR (CKD) >90 (>60 ml/min/1.73 sqM); Albumin 2.7 g/dL (3.5-5.0); Alkaline Phosphatase 66 U/L (38-126); Anion Gap 2 mmol/L; Blood Urea Nitrogen 17 mg/dL (7-17); Calcium 8.3 mg/dL (8.4-10.2); Carbon Dioxide 34 mmol/L (22-30); Chloride 101 mmol/L (98-107); Globulin 2.7 g/dL; Glucose 127 mg/dL (74-99); Magnesium 1.4 mg/dL (1.6-2.3); Non-African American GFR(CKD) 82 (>60 ml/min/1.73 sqM); Potassium 3.7 mmol/L (3.5-5.1); Sodium 137 mmol/L (137-145); Total Bilirubin 0.9 mg/dL (0.2-1.3); Total Protein 5.4 g/dL (6.3-8.2)
[2023-12-05] MEDS: MAGNESIUM SULFATE-D5W PMX 1 GM in DEXTROSE/WATER 1 100ML.BAG IVPB SCH (18:42)
[2023-12-05 20:46] LABS: Glucose,Whole Blood 148 mg/dL (70-110)
[2023-12-05] MEDS: NITROGLYCERIN OINT 1 INCH/GM PACKET TOPICAL SCH (22:15)
[2023-12-06 06:20] LABS: Glucose,Whole Blood 140 mg/dL (70-110)
[2023-12-06 10:02] LABS: HCT 25.4 % (37.2-46.3); HGB 8.5 g/dL (12.0-15.0); MCH 32.1 pg (27.0-32.0); MCHC 33.5 g/dL (32.0-37.0); MCV 95.8 FL (80.0-97.0); Mean Platelet Volume 10.4 FL (9.5-12.2); NRBC Per 100 WBC 0 X 10*3/uL (0.00-0.01); Platelet Count 226 X 10*3/uL (140-440); RBC 2.65 X 10*6/uL (4.10-5.20); RDW 14.4 % (11.5-14.5); WBC 9.67 X 10*3/uL (4.50-10.00)
[2023-12-06 10:26] LABS: Magnesium 1.8 mg/dL (1.5-2.4)
[2023-12-06 11:37] LABS: Blood Urea Nitrogen 16.8 mg/dL (9.0-27.0); Carbon Dioxide 31.2 mmol/L (21.6-31.8); Chloride 95 mmol/L (96-109); Glucose 135 mg/dL (70-110); Potassium 3.6 mmol/L (3.5-5.5); Sodium 139 mmol/L (135-145)
[2023-12-06 11:38] LABS: ALT 20 U/L (8-44); AST 23 U/L (13-35); Albumin 2.8 g/dL (3.8-4.9); Albumin/Globulin Ratio 1.08 Ratio (1.60-3.17); Alkaline Phosphatase 65 U/L (41-126); Calcium 8.7 mg/dL (8.7-10.3); Globulin 2.6 g/dL (1.6-3.3); Total Bilirubin 0.8 mg/dL (0.3-1.2); Total Protein 5.4 g/dL (6.2-8.2)
[2023-12-06 11:52] LABS: Glucose,Whole Blood 140 mg/dL (70-110)
[2023-12-06] MEDS: lisinopriL 10 MG TAB PO SCH (12:10)
--- NOTE | 2023-12-06 13:24 | CA ---
Transthoracic Echo Report Name: Karen Palm Age: 78 Gender: F : 1945 Exam Date: 12/05/2023 15:12 Exam Location: [facility] Ht (in): 63 Wt (lb): 230 Ordering Physician: Mike Gonzales Attending/Referring Phys: [employer] Anthony Malcolm RDCS Procedure CPT: Indications: chf Cardiac Hx: Technical Quality: Contrast 1: Definity Total Dose (mL): 2 Contrast 2: Total Dose (mL): MEASUREMENTS (Male / Female) Normal Values 2D ECHO LV Diastolic Diameter PLAX 4.6 cm 4.2 - 5.9 / 3.9 - 5.3 cm LV Systolic Diameter PLAX 3.1 cm IVS Diastolic Thickness 1.0 cm 0.6 - 1.0 / 0.6 - 0.9 cm LVPW Diastolic Thickness 1.2 cm 0.6 - 1.0 / 0.6 - 0.9 cm LV Relative Wall Thickness 0.5 LVOT Diameter 2.3 cm Aortic Root Diameter 3.1 cm DOPPLER AV Peak Velocity 134.0 cm/s AV Peak Gradient 7.2 mmHg AV Mean Velocity 102.7 cm/s AV Mean Gradient 4.5 mmHg AV Velocity Time Integral 31.3 cm MV Area PHT 5.5 cm??? MR Peak Velocity 361.1 cm/s MR Peak Gradient 52.2 mmHg Mitral E Point Velocity 126.7 cm/s Mitral A Point Velocity 47.6 cm/s Mitral E to A Ratio 2.7 MV Deceleration Time 138.5 ms TR Peak Velocity 287.7 cm/s TR Peak Gradient 33.1 mmHg PV Peak Velocity 136.8 cm/s PV Peak Gradient 7.5 mmHg FINDINGS Left Ventricle Mildly increased septal wall thickness. Mildly increased posterior wall thickness. Left ventricular ejection fraction is estimated at 50-55%. Normal left ventricular wall motion. No obvious regional wall motion abnormalities. Right Ventricle Normal right ventricular size and function. Right Atrium Normal right atrial size. Left Atrium Left atrial dilatation. LA approximately measures 4.4cm. Mitral Valve Mild mitral regurgitation. Aortic Valve Aortic valve not well visualized. Tricuspid Valve Mild tricuspid regurgitation. Pulmonic Valve No pulmonic regurgitation. Pericardium No pericardial effusion. Aorta Normal size aortic root. CONCLUSIONS Normal LV systolic function mildly enlarged right ventricle Left atrial enlargement Previewed by: Dr. Parker Gonzalez MD (Electronically Signed) Final Date: 06 December 2023 13:23
--- NOTE | 2023-12-06 14:56 | P.CRDCN ---
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 She is currently admitted to [facility] after a mechanical fall with right hip fracture. The patient underwent fixation of right intertrochanteric hip fracture with short intramedullary hip screw. Postoperatively the patient developed shortness of breath and cardiology was consulted for congestive heart failure. The patient was given IV furosemide by primary medicine with adequate diuresis. DIAGNOSTICS: Lab data: WBC 9.6, hemoglobin 8.5, hematocrit 25.4, platelet 226, sodium 139, potassium 3.6, BUN 16, creatinine 0.6, AST 23, ALT 20, troponin 0.04, BNP 2410 Echocardiogram reveals LV function of 50 to 55% with no significant valvular abnormalities. Mildly enlarged RV EKG shows sinus mechanism with PACs REVIEW OF SYSTEMS: No fever or chills. No cough or expectoration. No diaphoresis. Patient denies headache, dizziness, blurred vision, double vision. Patient denies any stomach discomfort. No nausea, vomiting. No hematochezia. No hematemesis. Denies any black stools or blood in his stools. Denies dysuria or hematuria. No muscle weakness or numbness. Positive for hip discomfort. Negative for chest pain. Shortness of breath has improved PHYSICAL EXAMINATION: This is a 78-year-old female in no apparent distress at the time of my examination. HEENT: Head is atraumatic, normocephalic. Pupils are equal, round. . There is no jugular venous distention. No carotid bruit is heard. CHEST EXAMINATION: Lungs are diminished to auscultation. No chest wall tenderness is noted on palpation or with deep breathing. HEART EXAMINATION: Heart regular rate and rhythm. S1, S2 heard. No murmurs, gallops or rub. ABDOMEN: Soft, nontender. Bowel sounds are heard. No organomegaly noted. EXTREMITIES: 2+ peripheral pulses with no evidence of peripheral edema and no calf tenderness noted. NEUROLOGIC EXAMINATION: Patient is awake, alert and oriented x3. FINAL ASSESSMENT AND PLAN: Mechanical fall status post hip fracture Status postoperative fixation of right intertrochanteric hip fracture with short intramedullary hip screw History of congestive heart failure Paroxysmal atrial fibrillation Coronary artery disease Sick sinus syndrome status post permanent pacemaker PLAN: Continue IV diuresis over the next 24 hours Continue to monitor electrolytes Patient to be discharged to rehab on Friday on home dose of furosemide Further recommendations be based upon clinical course I am dictating on behalf of Dr Parker Gonzalez's history/physical and assessment/plan. Past Medical History Past Medical History: Atrial Fibrillation, Chest Pain / Angina, Heart Failure, Diabetes Mellitus, Hyperlipidemia, Hypertension, Osteoarthritis (OA), Renal Disease, Sleep Apnea/CPAP/BIPAP Additional Past Medical History / Comment(s): left kidney stones,. pulmonary hypertension. incontinent of urine History of Any Multi-Drug Resistant Organisms: None Reported Past Surgical History: Cardiac Ablation, Hysterectomy, Pacemaker Additional Past Surgical History / Comment(s): cystoscopy w/ left ureter stent placed,[facility] Pacemaker left chest Past Anesthesia/Blood Transfusion Reactions: No Reported Reaction Additional Past Anesthesia/Blood Transfusion Reaction / Comment(s): no hx blood transfusions Type of Cardiac Device: Permanent Pacemaker Device Placement Date:: 2003 Past Psychological History: No Psychological Hx Reported Smoking Status: Former smoker - Past Family History Father Family Medical History: Congestive Heart Failure (CHF), COPD, Pneumonia Additional Family Medical History / Comment(s): emphysema Mother Family Medical History: Cancer Additional Family Medical History / Comment(s): alive 99, Skin CA,spine CA-dx Oct 2022 Medications and Allergies Home Medications Medication Instructions Recorded Confirmed Type Alendronate Sodium [Fosamax] 70 mg PO SCOTT 11/02/22 11/30/23 History Folic Acid 1 mg PO DAILY 11/02/22 11/30/23 History Gabapentin 300 mg PO DAILY@1400 11/02/22 11/30/23 History Gabapentin 600 mg PO BID@0900,2100 11/02/22 11/30/23 History Magnesium Oxide 400 mg PO BID-W/MEALS 11/02/22 11/30/23 History Mirabegron [Myrbetriq] 50 mg PO DAILY 11/02/22 11/30/23 History Warfarin [Coumadin] 2.5 mg PO MOFR 11/02/22 11/30/23 History Warfarin [Coumadin] 5 mg PO SUTUWETHSA 11/02/22 11/30/23 History allopurinoL 200 mg PO DAILY 11/02/22 11/30/23 History traZODone HCL [Desyrel] 50 mg PO HS 11/02/22 11/30/23 History Furosemide [Lasix] 20 mg PO DAILY 11/19/22 11/30/23 History Atorvastatin [Lipitor] 20 mg PO DAILY 11/30/23 11/30/23 History Brimonidine Tartrate [Alphagan P 1 drops LEFT EYE TID 11/30/23 11/30/23 History 0.2% Ophth Soln] Escitalopram [Lexapro] 10 mg PO DAILY 11/30/23 11/30/23 History HYDROcodone/APAP 7.5-325MG [[place] 1 - 2 tab PO Q6HR PRN #32 tab 11/30/23 Rx 7.5-325] Omeprazole 20 mg PO DAILY #30 tab 11/30/23 Rx Sennosides-Docusate Sodium 1 tab PO BID #60 tablet 11/30/23 Rx [Senokot-S] Sotalol [Betapace] 120 mg PO BID 11/30/23 11/30/23 History amLODIPine [Norvasc] 10 mg PO DAILY 11/30/23 11/30/23 History buPROPion XL [Wellbutrin XL] 150 mg PO DAILY 11/30/23 11/30/23 History busPIRone HCL [Buspar] 7.5 mg PO BID 11/30/23 11/30/23 History sitaGLIPtin [Januvia] 50 mg PO DAILY 11/30/23 11/30/23 History Allergies Allergy/AdvReac Type Severity Reaction Status Date / Time Penicillins Allergy swelling, Verified 11/30/23 11:11 arms and hands reddened and itching cefaclor [From Ceclor] AdvReac swelling, Verified 11/30/23 11:11 arms and hands reddened and itching levofloxacin [From Levaquin] AdvReac Dyspnea Verified 11/30/23 11:11 Physical Exam Vitals: Vital Signs Temp Pulse Resp BP Pulse Ox 12/06/23 08:00 68 18 12/06/23 07:38 97.6 F 68 18 155/67 92 L 12/06/23 02:00 97.7 F 59 L 16 152/70 95 12/05/23 20:00 98.3 F 75 20 168/69 90 L Intake and Output 12/05/23 12/06/23 12/06/23 22:59 06:59 14:59 Intake Total 400 Output Total 1150 1150 900 Balance -750 -1150 900 Intake: Intake, IV Titration 200 Amount Magnesium Sulfate-D5w Pmx 100 1 gm In Dextrose/Water 1 100ml.bag @ 100 mls/hr IVPB Q1H [facility] Rx#: [id number] Sodium Ferric Gluconat- 100 Sucrose 125 mg In Sodium Chloride 0.9% 100 ml @ 100 mls/hr IVPB DAILY [facility] Rx#:[id number] Oral 200 Output: Urine 1150 1150 900 Other: Voiding Method Bedside Commode External Catheter Results 12/06/23 06:18 12/06/23 06:18 Cardiac Enzymes 12/05/23 12/05/23 12/06/23 Range/Units 18:10 19:21 06:18 AST 27 23 (14-36) U/L Troponin I 0.041 H* (0.000-0.034) ng/mL CBC 12/05/23 12/06/23 Range/Units 18:10 06:18 WBC 9.8 9.67 (3.8-10.6) k/uL RBC 2.70 L 2.65 L (3.80-5.40) m/uL Hgb 8.7 L 8.5 L (11.4-16.0) gm/dL Hct 26.0 L 25.4 L (34.0-46.0) % Plt Count 229 226 (150-450) k/uL Comprehensive Metabolic Panel 12/05/23 12/06/23 Range/Units 18:10 06:18 Sodium 137 139 (137-145) mmol/L Potassium 3.7 3.6 (3.5-5.1) mmol/L Chloride 101 95 L (98-107) mmol/L Carbon Dioxide 34 H 31.2 (22-30) mmol/L BUN 17 16.8 (7-17) mg/dL Creatinine 0.72 0.6 (0.52-1.04) mg/dL Glucose 127 H 135 H (74-99) mg/dL Calcium 8.3 L 8.7 (8.4-10.2) mg/dL AST 27 23 (14-36) U/L ALT 21 20 (4-34) U/L Alkaline Phosphatase 66 65 (38-126) U/L Total Protein 5.4 L 5.4 L (6.3-8.2) g/dL Albumin 2.7 L 2.8 L (3.5-5.0) g/dL Current Medications Generic Name Dose Route Start Last Admin Trade Name Freq PRN Reason Stop Dose Admin Hydrocodone Bitart/Acetaminophen 1 each 11/30/23 14:56 12/03/23 06:06 Hydrocodone/Apap 5-325mg 1 Each Tab PO 1 each Q6HR PRN Administration Pain Scale 1 to 5 Hydrocodone Bitart/Acetaminophen 2 each 11/30/23 14:56 12/06/23 05:47 Hydrocodone/Apap 5-325mg 1 Each Tab PO 2 each Q6HR PRN Administration Pain Scale 6 to 10 Albuterol/Ipratropium 3 ml 11/30/23 13:36 12/04/23 09:09 Ipratropium-Albuterol 3 Ml Neb INHALATION 3 ml RT-Q2H PRN Administration Shortness Of Breath Or Wheezing Amlodipine Besylate 10 mg 12/01/23 09:00 12/06/23 09:52 Amlodipine 10 Mg Tab PO 10 mg DAILY [facility] Administration Atorvastatin Calcium 20 mg 12/01/23 09:00 12/06/23 09:52 Atorvastatin 20 Mg Tab PO 20 mg DAILY [facility] Administration Brimonidine Tartrate 1 drops 11/30/23 12:00 12/06/23 09:52 Brimonidine Tartrate 0.2% Drops 5 Ml Btl LEFT EYE 1 drops TID [facility]MA Administration Bupropion HCl 150 mg 12/01/23 09:00 12/06/23 09:53 Bupropion Xl 150 Mg Tab.Er.24h PO 150 mg DAILY [facility] Administration Buspirone HCl 7.5 mg 11/30/23 21:00 12/06/23 09:53 Buspirone Hcl 5 Mg Tab PO 7.5 mg BID [facility]MA Administration Dextrose/Water 25 ml 11/30/23 07:34 Dextrose 50% Syringe 50 Ml IVP PER PROTOCOL PRN Hypoglycemia Protocol Dextrose/Water 50 ml 11/30/23 07:34 Dextrose 50% Syringe 50 Ml IVP PER PROTOCOL PRN Hypoglycemia Protocol Escitalopram Oxalate 10 mg 12/01/23 09:00 12/06/23 09:53 Escitalopram 10 Mg Tab PO 10 mg DAILY [facility] Administration Folic Acid 1 mg 12/01/23 09:00 12/06/23 09:53 Folic Acid 1 Mg Tab PO 1 mg DAILY [facility] Administration Furosemide 40 mg 12/04/23 21:00 12/06/23 09:53 Furosemide 10 Mg/Ml 4 Ml Vial IV 40 mg Q12HR [facility] Administration Gabapentin 300 mg 11/30/23 14:00 12/06/23 14:17 Gabapentin 300 Mg Cap PO 300 mg DAILY@1400 [facility] Administration Gabapentin 600 mg 11/30/23 21:00 12/06/23 09:53 Gabapentin 300 Mg Cap PO 600 mg BID@0900,2100 [facility] Administration Hydromorphone HCl 1 mg 11/30/23 03:25 12/04/23 05:38 Hydromorphone 1 Mg/Ml 1 Ml Syringe IVP 1 mg Q3HR PRN Administration Severe Pain (Scale 7 to 10) Hydromorphone HCl 0.125 mg 11/30/23 14:56 Hydromorphone 0.5 Mg/0.5 Ml Syringe IVP Q3HR PRN Pain Scale 1 to 3 Hydromorphone HCl 0.25 mg 11/30/23 14:56 Hydromorphone 0.5 Mg/0.5 Ml Syringe IVP Q3HR PRN Pain Scale 4 to 6 Hydromorphone HCl 0.5 mg 11/30/23 14:56 12/05/23 22:15 Hydromorphone 0.5 Mg/0.5 Ml Syringe IVP 0.5 mg Q3HR PRN Administration Pain Scale 7 to 10 Vancomycin HCl 1,500 mg/ 500 mls @ 167 mls/hr 12/01/23 05:00 12/06/23 05:30 Sodium Chloride IVPB 167 mls/hr Q24H [facility] Administration Ferric Sodium Gluconate 125 mg 110 mls @ 100 mls/hr 12/04/23 09:00 12/06/23 09:53 / Sodium Chloride IVPB 100 mls/hr DAILY [facility] Administration Insulin Aspart 0 unit 12/01/23 12:30 12/06/23 11:53 Insulin Aspart (Novolog) 100 Unit/Ml Vial SQ Not Given ACHS [facility] Protocol Lisinopril 10 mg 12/06/23 12:30 12/06/23 12:10 Lisinopril 10 Mg Tab PO 10 mg DAILY [facility] Administration Magnesium Hydroxide 2,400 mg 11/30/23 14:56 Magnesium Hydroxide 2,400 Mg/30 Ml Cup PO DAILY PRN Constipation Metoclopramide HCl 10 mg 12/04/23 10:03 12/04/23 16:48 Metoclopramide 5 Mg/Ml 2 Ml Vial IVP 10 mg Q6HR PRN Administration Nausea Naloxone HCl 0.2 mg 11/30/23 14:56 Naloxone 0.4 Mg/Ml 1 Ml Vial IV Q2M PRN Opioid Reversal Nitroglycerin 0.5 inch 12/05/23 22:00 12/06/23 09:52 Nitroglycerin Oint 1 Inch/Gm Packet TOPICAL 0.5 inch Q8HR [facility] Administration Patient's Own ( 50 mg 12/01/23 09:00 12/06/23 09:52 Mirabegron [ PO Not Given Myrbetriq] 50 Mg Tab DAILY [facility] .Er.24h) Ondansetron HCl 4 mg 11/30/23 03:25 12/06/23 05:47 Ondansetron 4 Mg/2 Ml Vial IVP 4 mg Q8HR PRN Administration Nausea And Vomiting Senna/Docusate Sodium 2 each 11/30/23 21:00 12/05/23 20:38 Sennosides-Docusate Sodium 1 Each Tab PO 2 each HS [facility] Administration Sotalol HCl 120 mg 11/30/23 21:00 12/06/23 09:54 Sotalol 120 Mg Tab PO 120 mg BID [facility] Administration Temazepam 15 mg 11/30/23 22:00 Temazepam 15 Mg Cap PO 2200 PRN Insomnia Intake and Output 12/05/23 12/06/23 12/06/23 22:59 06:59 14:59 Intake Total 400 Output Total 1150 1150 900 Balance -750 -1150 -900 Intake: Intake, IV Titration 200 Amount Magnesium Sulfate-D5w Pmx 100 1 gm In Dextrose/Water 1 100ml.bag @ 100 mls/hr IVPB Q1H [facility] Rx#: [id number] Sodium Ferric Gluconat- 100 Sucrose 125 mg In Sodium Chloride 0.9% 100 ml @ 100 mls/hr IVPB DAILY [facility] Rx#:[id number] Oral 200 Output: Urine 1150 1150 900 Other: Voiding Method Bedside Commode External Catheter 12/06/23 06:18 12/06/23 06:18
--- NOTE | 2023-12-06 14:59 | P.PN ---
Subjective Progress Note Date: 12/06/23 Hospital course: Patient is a very pleasant 78-year-old female with a past medical history of CAD status post permanent pacemaker placement in 2003, congestive heart failure, paroxysmal atrial fibrillation status postcardiac ablation on anticoagulation with Coumadin, hypertension, hyperlipidemia, pulmonary hypertension, obstructive sleep apnea CPAP dependent, and type II [id number]-vzvcumfcl diabetes mellitus. She was transferred to our facility from [facility] secondary to intertrochanteric right hip fracture resulting from mechanical trip and fall. She is currently admitted under orthopedic surgery team with Dr. Hall and we were consulted for medical clearance and medical management throughout her hospitalization. Vital signs reviewed. Blood pressure currently 144/77, heart rate 72, respiratory rate 18, temp 98.1 F, and SpO2 of 96% on room air. Morning labs reviewed. CBC showing stable hemoglobin of 12.1 and mild thrombocytopenia with platelet count of 142. Coagulation profile shows therapeutic INR at 2.6 (which is therapeutic for patient's goal level however places patient at increased risk of bleeding during and after surgical procedure). BMP showing mild hyperchloremia with chloride of 108 and hyperglycemia with glucose of 154 otherwise unremarkable. EKG completed showing sinus rhythm at 76 bpm with nonspecific T wave abnormalities but showing no significant T wave or ST abnormalities concerning for acute ischemia. Chest x- ray reviewed and was negative for acute cardiopulmonary process. Patient was admitted under orthopedic surgery team and we were consulted for medical management. Patient underwent surgical repair of right intertrochanteric femor al fracture with intramedullary nailing with Dr. Hall on 11/30/2023. Cardiology also consulted. Physical exam: Patient seen and examined at bedside. No acute events overnight. Denies any chest pain, shortness of breath, cough, abdominal pain, nausea, vomiting, urinary or bowel complaints. Vital signs reviewed and stable. General: Nontoxic, no distress and appears stated age. Obese. Derm: Skin warm and dry, normal coloration for ethnicity. Head: Atraumatic, normocephalic and symmetric. Eyes: EOMs intact, no lid lag, and anicteric sclera Mouth: no lip lesions, mucus membranes moist Cardiovascular: regular rate and rhythm with normal S1S2, soft systolic murmur, positive posterior tibial pulses bilaterally, and cap refill < 2 seconds. Pacemaker left anterior chest. Lungs: Respirations even, regular, and unlabored on supplemental oxygen. Lungs CTA bilaterally, no rhonchi, no rales, no wheezing, and no accessory muscle usage. Abdominal: soft, nontender to palpation, no guarding, no appreciable organomegaly Ext: No gross muscle atrophy, no edema, no contractures. Movement and sensation intact. Postsurgical dressing intact right lateral hip recently changed by RN. Patient with mild bruising to right lateral hip and thigh with moderate swelling, no signs of hematoma formation. Neuro: Speech clear, face symmetrical and CN II-XII grossly intact with no noted focal neuro deficits Psych: Alert and oriented to person, place, time, and situation. Appropriate and pleasant affect. Assessment and Plan of Care: Diastolic CHF exacerbation CAD status post permanent pacemaker placement in 2003 Paroxysmal atrial fibrillation status postcardiac ablation on anticoagulation w ith Coumadin Hypertension Hyperlipidemia Remains on IV Lasix 40 mg twice daily, monitor for renal function as well as electrolytes Cardiology consulted Echocardiogram shows preserved LV systolic function Started on lisinopril 10 mg daily per cardiology, also on sotalol 120 twice daily, amlodipine 10 mg daily, atorvastatin 20 mg daily -Continue to hold Coumadin at this time, patient required transfusion of PRBCs x 1 unit. Patient may resume Coumadin once medically stable and cleared by [facility] admitting orthopedic surgery team. -Continue telemetry monitoring. -Oxygenation as needed to maintain SpO2 equal to or greater than 90%. -Continue to monitor I's and O's Acute postoperative blood loss anemia, greater than expected. Stable at this time. Iron deficiency anemia Preoperative hemoglobin of 11.8 decreasing down to hemoglobin of 6.4.. Patient is status post 1 unit PRBCs and hemoglobin stable at 8.6. Iron profile showing iron deficiency. Patient started on Ferrlecit 125 mg daily day 2 of 3 and done well will discharge on ferrous sulfate 325 mg daily. No signs of active bleeding or hematoma formation, discussed with orthopedic surgeon, he is not recommending repeat CT at this time. Will repeat hemoglobin tomorrow morning and transfuse if needed for any hemoglobins less than 7. Hypomagnesemia Order placed for repeat morning magnesium level to monitor for improvem ent/resolution. Additional orders to be placed if indicated based upon these results. Status post fixation of right intertrochanteric hip fracture with short intramedullary hip screw. Management per primary admitting orthopedic surgery team including DVT prophylaxis, pain management, wound/dressing management, weightbearing, and PT/OT. Continue to hold Coumadin at this time, patient requiring transfusion of PRBCs. Patient may resume Coumadin once medically stable and cleared by primary admitting orthopedic surgery team. Pulmonary hypertension Pulmonary fibrosis Obstructive sleep apnea CPAP dependent -Continue CPAP at night, DuoNeb as needed Type II tde-[id number] diabetes mellitus. -Continue to hold oral hypoglycemic Januvia and continue glycemic protocol with NovoLog sliding scale. Monitor for hypoglycemia Data and imaging reviewed: Echocardiogram report reviewed, shows normal LV systolic function, mildly enlarged right ventricle, left atrial enlargement. Hemoglobin 8.5, creatinine 0.6, potassium 3.6, glucose range between 1 40-1 48, magnesium 1.8 Patient to be discharged to [facility] for rehab once medically stable. Thank you for allowing us to participate in the care of this pleasant patient. Do not hesitate to contact us with questions. Someone can be reached from the [facility] [place] hospitalist group all hours of the day at [phone] or via [employer]. Objective - Vital Signs Vital signs: Vital Signs Temp 98 F 12/06/23 13:43 Pulse 61 12/06/23 13:43 Resp 16 12/06/23 13:43 BP 119/53 12/06/23 13:43 Pulse Ox 93 L 12/06/23 13:43 FiO2 3 12/05/23 07:38 Intake & Output 12/05/23 12/06/23 12/06/23 18:59 06:59 18:59 Intake Total 400 Output Total 1300 1900 900 Balance -1300 -1500 -900 Weight 104.326 kg Intake: Intake, IV Titration 200 Amount Magnesium Sulfate-D5w Pmx 100 1 gm In Dextrose/Water 1 100ml.bag @ 100 mls/hr IVPB Q1H [facility] Rx#: [id number] Sodium Ferric Gluconat- 100 Sucrose 125 mg In Sodium Chloride 0.9% 100 ml @ 100 mls/hr IVPB DAILY [facility] Rx#:[id number] Oral 200 Output: Urine 1300 1900 900 Other: Voiding Method Bedside Commode External Catheter - Labs CBC & Chem 7: 12/06/23 06:18 12/06/23 06:18 Labs: Abnormal Lab Results - Last 24 Hours (Table) 12/05/23 12/05/23 12/05/23 Range/Units 16:57 18:10 18:10 RBC 2.70 L (3.80-5.40) m/uL Hgb 8.7 L (11.4-16.0) gm/dL Hct 26.0 L (34.0-46.0) % MCH (27.0-32.0) pg Chloride (96-109) mmol/L Carbon Dioxide 34 H (22-30) mmol/L Anion Gap (4.00-12.00) mmol/L BUN/Creatinine Ratio (12.00-20.00) Ratio Glucose 127 H (74-99) mg/dL POC Glucose (mg/dL) 142 H (70-110) mg/dL Calcium 8.3 L (8.4-10.2) mg/dL Magnesium 1.4 L (1.6-2.3) mg/dL Troponin I (0.000-0.034) ng/mL Total Protein 5.4 L (6.3-8.2) g/dL Albumin 2.7 L (3.5-5.0) g/dL Albumin/Globulin Ratio (1.60-3.17) Ratio 12/05/23 12/05/23 12/06/23 Range/Units 19:21 20:45 06:18 RBC 2.65 L (3.80-5.40) m/uL Hgb 8.5 L (11.4-16.0) gm/dL Hct 25.4 L (34.0-46.0) % MCH 32.1 H (27.0-32.0) pg Chloride (96-109) mmol/L Carbon Dioxide (22-30) mmol/L Anion Gap (4.00-12.00) mmol/L BUN/Creatinine Ratio (12.00-20.00) Ratio Glucose (74-99) mg/dL POC Glucose (mg/dL) 148 H (70-110) mg/dL Calcium (8.4-10.2) mg/dL Magnesium (1.6-2.3) mg/dL Troponin I 0.041 H* (0.000-0.034) ng/mL Total Protein (6.3-8.2) g/dL Albumin (3.5-5.0) g/dL Albumin/Globulin Ratio (1.60-3.17) Ratio 12/06/23 12/06/23 12/06/23 Range/Units 06:18 06:19 11:50 RBC (3.80-5.40) m/uL Hgb (11.4-16.0) gm/dL Hct (34.0-46.0) % MCH (27.0-32.0) pg Chloride 95 L (96-109) mmol/L Carbon Dioxide (22-30) mmol/L Anion Gap 12.80 H (4.00-12.00) mmol/L BUN/Creatinine Ratio 28.00 H (12.00-20.00) Ratio Glucose 135 H (74-99) mg/dL POC Glucose (mg/dL) 140 H 140 H (70-110) mg/dL Calcium (8.4-10.2) mg/dL Magnesium (1.6-2.3) mg/dL Troponin I (0.000-0.034) ng/mL Total Protein 5.4 L (6.3-8.2) g/dL Albumin 2.8 L (3.5-5.0) g/dL Albumin/Globulin Ratio 1.08 L (1.60-3.17) Ratio
[2023-12-06 17:08] LABS: Glucose,Whole Blood 141 mg/dL (70-110)
[2023-12-06 20:51] LABS: Glucose,Whole Blood 158 mg/dL (70-110)
[2023-12-06] MEDS ORDERED: NITROGLYCERIN OINT 1 INCH/GM PACKET TOPICAL SCH (21:00)
[2023-12-07 06:15] LABS: Glucose,Whole Blood 148 mg/dL (70-110)
[2023-12-07 11:48] LABS: Glucose,Whole Blood 143 mg/dL (70-110)
--- NOTE | 2023-12-07 12:49 | P.PN ---
Subjective Progress Note Date: 12/07/23 This is Navarro Flanagan NP, I'm dictating on behalf of Dr. Gonzalez's H&P and A&P. Patient was interviewed and examined. Patient is a pleasant 78-year-old female who presented to the hospital with a right hip fracture and associated congestive heart failure postoperatively. Patient reports that she is feeling much better today. She reports being able to lie flat in bed without any shortness of breath. Patient has been up and down into the chair without any shortness of breath. Patient reports overall her breathing is much better today. GENERAL: Well-appearing, well-nourished and in no acute distress. NECK: Supple without JVD or thyromegaly. LUNGS: Breath sounds clear to auscultation bilaterally. Respiration equal and unlabored. No wheezes, rales or rhonchi. HEART: Regular rate and rhythm without murmurs, rubs or gallops. S1 and S2 heard. EXTREMITIES: Normal range of motion, no edema. No clubbing or cyanosis. Peripheral pulses intact and strong. VITALS: Temp 98.2, pulse 63, respirations 17, blood pressure 159/73, O2 saturation 95% on 3 L TELEMETRY: Sinus mechanism with PACs LABS: White count 9.6, hemoglobin 8.5, platelets 226, sodium 139, potassium 3.6, BUN 16.8, creatinine 0.6, calcium 8.7, magnesium 1.8 IMPRESSION: 1. Mechanical fall status post hip fracture 2. Status postoperative fixation of right intertrochanteric hip fracture 3. History of congestive heart failure 4. Paroxysmal atrial fibrillation 5. CAD 6. Sick sinus syndrome with status post permanent pacemaker PLAN: Discontinue IV Lasix. Start Lasix 40 mg p.o. twice daily. Patient can be discharged from a cardiology standpoint. Thank you for allowing us to participate in the care of this patient. Objective - Vital Signs Vital signs: Vital Signs Temp 98.2 F 12/07/23 07:42 Pulse 63 12/07/23 07:42 Resp 17 12/07/23 07:42 BP 159/73 12/07/23 07:42 Pulse Ox 95 12/07/23 07:42 FiO2 3 12/05/23 07:38 Intake & Output 12/06/23 12/07/23 12/07/23 18:59 06:59 18:59 Intake Total 720 Output Total 1500 600 Balance -780 -600 Intake: Intake, IV Titration 720 Amount IV Fluid Continuation 1, 120 000 ml @ 0 mls/hr IV .[facility] Rx#:[id number] Sodium Ferric Gluconat- 100 Sucrose 125 mg In Sodium Chloride 0.9% 100 ml @ 100 mls/hr IVPB DAILY [facility] Rx#:[id number] Vancomycin 1,500 mg In 500 Sodium Chloride 0.9% 500 ml 500 ml @ 167 mls/hr IVPB Q24H [facility] Rx#: [id number] Output: Urine 1500 600 Other: Voiding Method Bedside Commode Bedside Commode External Catheter External Catheter # Bowel Movements 0 - Labs CBC & Chem 7: 12/06/23 06:18 12/06/23 06:18 Labs: Abnormal Lab Results - Last 24 Hours (Table) 12/06/23 12/06/23 12/07/23 Range/Units 17:07 20:50 06:13 POC Glucose (mg/dL) 141 H 158 H 148 H (70-110) mg/dL 12/07/23 Range/Units 11:42 POC Glucose (mg/dL) 143 H (70-110) mg/dL
[2023-12-07] MEDS: FUROSEMIDE 40 MG TAB PO SCH (15:27)
--- NOTE | 2023-12-07 15:28 | P.PN ---
Subjective Progress Note Date: 12/07/23 Hospital course: Patient is a very pleasant 78-year-old female with a past medical history of CAD status post permanent pacemaker placement in 2003, congestive heart failure, paroxysmal atrial fibrillation status postcardiac ablation on anticoagulation with Coumadin, hypertension, hyperlipidemia, pulmonary hypertension, obstructive sleep apnea CPAP dependent, and type II cou-xsikjcu-mpexfesdk diabetes mellitus. She was transferred to our facility from [facility] secondary to intertrochanteric right hip fracture resulting from mechanical trip and fall. She is currently admitted under orthopedic surgery team with Dr. Hall and we were consulted for medical clearance and medical management throughout her hospitalization. Vital signs reviewed. Blood pressure currently 144/77, heart rate 72, respiratory rate 18, temp 98.1 F, and SpO2 of 96% on room air. Morning labs reviewed. CBC showing stable hemoglobin of 12.1 and mild thrombocytopenia with platelet count of 142. Coagulation profile shows therapeutic INR at 2.6 (which is therapeutic for patient's goal level however places patient at increased risk of bleeding during and after surgical procedure). BMP showing mild hyperchloremia with chloride of 108 and hyperglycemia with glucose of 154 otherwise unremarkable. EKG completed showing sinus rhythm at 76 bpm with nonspecific T wave abnormalities but showing no significant T wave or ST abnormalities concerning for acute ischemia. Chest x- ray reviewed and was negative for acute cardiopulmonary process. Patient was admitted under orthopedic surgery team and we were consulted for medical management. Patient underwent surgical repair of right intertrochanteric femor al fracture with intramedullary nailing with Dr. Hall on 11/30/2023. Cardiology also consulted. Now on oral Lasix Physical exam: Patient seen and examined at bedside. No acute events overnight. Denies any chest pain, shortness of breath, cough, abdominal pain, nausea, vomiting, urinary or bowel complaints. Vital signs reviewed and stable. General: Nontoxic, no distress and appears stated age. Obese. Derm: Skin warm and dry, normal coloration for ethnicity. Head: Atraumatic, normocephalic and symmetric. Eyes: EOMs intact, no lid lag, and anicteric sclera Mouth: no lip lesions, mucus membranes moist Cardiovascular: regular rate and rhythm with normal S1S2, soft systolic murmur, positive posterior tibial pulses bilaterally, and cap refill < 2 seconds. Pacemaker left anterior chest. Lungs: Respirations even, regular, and unlabored on supplemental oxygen. Lungs CTA bilaterally, no rhonchi, no rales, no wheezing, and no accessory muscle usage. Abdominal: soft, nontender to palpation, no guarding, no appreciable organomegaly Ext: No gross muscle atrophy, no edema, no contractures. Movement and sensation intact. Postsurgical dressing intact right lateral hip recently norma nged by RN. Patient with mild bruising to right lateral hip and thigh with moderate swelling, no signs of hematoma formation. Neuro: Speech clear, face symmetrical and CN II-XII grossly intact with no noted focal neuro deficits Psych: Alert and oriented to person, place, time, and situation. Appropriate and pleasant affect. Assessment and Plan of Care: Diastolic CHF exacerbation CAD status post permanent pacemaker placement in 2003 Paroxysmal atrial fibrillation status postcardiac ablation on anticoagulation with Coumadin Hypertension Hyperlipidemia Cardiology note reviewed, started on oral Lasix 40 twice daily Echocardiogram shows preserved LV systolic function Started on lisinopril 10 mg daily per cardiology, also on sotalol 120 twice daily, amlodipine 10 mg daily, atorvastatin 20 mg daily -Continue to hold Coumadin at this time, patient required transfusion of PRBCs x 1 unit. Patient may resume Coumadin once medically stable and cleared by primary admitting orthopedic surgery team. -Continue telemetry monitoring. -Oxygenation as needed to maintain SpO2 equal to or greater than 90%. -Continue to monitor I's and O's Acute postoperative blood loss anemia, greater than expected. Stable at this time. Iron deficiency anemia Preoperative hemoglobin of 11.8 decreasing down to hemoglobin of 6.4.. Patient is status post 1 unit PRBCs and hemoglobin stable at 8.6. Iron profile showing iron deficiency. Patient started on Ferrlecit 125 mg daily day 2 of 3 and done well will discharge on ferrous sulfate 325 mg daily. No signs of active bleeding or hematoma formation Hypomagnesemia resolved Status post fixation of right intertrochanteric hip fracture with short int ramedullary hip screw. Management per primary admitting orthopedic surgery team including DVT proph ylaxis, pain management, wound/dressing management, weightbearing, and PT/OT. Continue to hold Coumadin at this time, patient requiring transfusion of PRBCs. Patient may resume Coumadin once medically stable and cleared by primary admitting orthopedic surgery team. Pulmonary hypertension Pulmonary fibrosis Obstructive sleep apnea CPAP dependent -Continue CPAP at night, DuoNeb as needed Type II kbw-pvoojmk-mozaefhat diabetes mellitus. -Continue to hold oral hypoglycemic Januvia and continue glycemic protocol with NovoLog sliding scale. Monitor for hypoglycemia Data and imaging reviewed: Blood sugars range between 1 43-1 48 DVT prophylaxis: Not indicated Anticipated date of discharge: Likely tomorrow Patient to be discharged to [facility] for rehab once medically stable. Objective - Vital Signs Vital signs: Vital Signs Temp 97.4 F L 12/07/23 14:20 Pulse 60 12/07/23 14:20 Resp 18 12/07/23 14:20 BP 110/61 12/07/23 14:20 Pulse Ox 97 12/07/23 14:20 FiO2 3 12/05/23 07:38 Intake & Output 12/06/23 12/07/23 12/07/23 18:59 06:59 18:59 Intake Total 720 Output Total 1500 600 Balance -780 -600 Intake: Intake, IV Titration 720 Amount IV Fluid Continuation 1, 120 000 ml @ 0 mls/hr IV .[facility] Rx#:[id number] Sodium Ferric Gluconat- 100 Sucrose 125 mg In Sodium Chloride 0.9% 100 ml @ 100 mls/hr IVPB DAILY [facility] Rx#:[id number] Vancomycin 1,500 mg In 500 Sodium Chloride 0.9% 500 ml 500 ml @ 167 mls/hr IVPB Q24H [facility] Rx#: [id number] Output: Urine 1500 600 Other: Voiding Method Bedside Commode Bedside Commode External Catheter External Catheter # Bowel Movements 0 - Labs CBC & Chem 7: 12/06/23 06:18 12/06/23 06:18 Labs: Abnormal Lab Results - Last 24 Hours (Table) 12/06/23 12/06/23 12/07/23 Range/Units 17:07 20:50 06:13 POC Glucose (mg/dL) 141 H 158 H 148 H (70-110) mg/dL 12/07/23 Range/Units 11:42 POC Glucose (mg/dL) 143 H (70-110) mg/dL
[2023-12-07 16:53] LABS: Glucose,Whole Blood 125 mg/dL (70-110)
[2023-12-07 20:39] LABS: Glucose,Whole Blood 181 mg/dL (70-110)
[2023-12-08 06:20] LABS: Glucose,Whole Blood 138 mg/dL (70-110)
[2023-12-08 09:40] LABS: Basophils % (A) 1 %; Eosinophils # (A) 0.2 k/uL (0-0.7); Eosinophils % (A) 2 %; HGB 8.6 gm/dL (11.4-16.0); Hypochromasia Slight; Lymphocytes # (A) 1.1 k/uL (1.0-4.8); Lymphocytes % (A) 15 %; MCH 31.3 pg (25.0-35.0); MCHC 31.6 g/dL (31.0-37.0); Macrocytosis Slight; Mean Platelet Volume 8.3; Monocytes # (A) 0.6 k/uL (0-1.0); Monocytes % (A) 8 %; Neutrophils # (A) 5.5 k/uL (1.3-7.7); Neutrophils % (A) 73 %; Platelet Count 290 k/uL (150-450); RBC 2.73 m/uL (3.80-5.40); RDW 14.7 % (11.5-15.5); WBC 7.5 k/uL (3.8-10.6)
[2023-12-08] MEDS: MAGNESIUM OXIDE 400 MG TAB PO STA (09:57)
--- NOTE | 2023-12-08 10:19 | P.PN ---
Subjective HISTORY OF PRESENT ILLNESS: This is a 78-year-old female who is status post surgery due to a right hip fracture. Patient did develop congestive heart failure postoperatively. Patient follows with a escrow clerk out of [place]. Patient examined this morning at the bedside. Patient currently denies any chest pain or pressure. She denies any shortness of breath. She has been transition to oral diuretics. Patient's Coumadin has been placed on hold postoperatively secondary to anemia. Hemoglobin this morning is 8.6. PHYSICAL EXAM: VITAL SIGNS: Reviewed. GENERAL: Well-developed in no acute distress. NECK: Supple. No JVD or thyromegaly LUNGS: Respirations even and unlabored. Lungs essentially clear to auscultation bilaterally. HEART: Regular rate and rhythm. S1 and S2 heard. EXTREMITIES: Normal range of motion. No clubbing or cyanosis. Peripheral pulses intact. No lower extremity edema ASSESSMENT: 1. Mechanical fall status post hip fracture 2. Status postoperative fixation of right intertrochanteric hip fracture 3. Acute on chronic heart failure with preserved EF, 50 to 55% 4. Paroxysmal atrial fibrillation 5. CAD 6. Sick sinus syndrome with status post permanent pacemaker 7. Acute blood loss anemia secondary to surgery PLAN: Continue current cardiac medications Prescription sent to the pharmacy for Eliquis. Will have case management check co-pay. If patient unable to afford co-pay, will continue on Coumadin otherwise will initiate Eliquis Patient is stable for discharge today from a cardiac standpoint Nurse practitioner note has been reviewed by physician. Signing provider agrees with the documented findings, assessment, and plan of care documented by [employer] as a scribe. Objective - Vital Signs Vital signs: Vital Signs Temp 98.3 F 12/08/23 07:20 Pulse 63 12/08/23 07:20 Resp 18 12/08/23 07:20 BP 129/65 12/08/23 07:20 Pulse Ox 98 12/08/23 08:19 FiO2 3 12/05/23 07:38 Intake & Output 12/07/23 12/08/23 12/08/23 18:59 06:59 18:59 Output Total 650 400 Balance -650 -400 Output: Urine 650 400 Other: Voiding Method Bedside Commode External Catheter External Catheter # Voids 2 # Bowel Movements 1 - Labs CBC & Chem 7: 12/08/23 08:46 12/06/23 06:18 Labs: Abnormal Lab Results - Last 24 Hours (Table) 12/07/23 12/07/23 12/07/23 Range/Units 11:42 16:52 20:39 RBC (3.80-5.40) m/uL Hgb (11.4-16.0) gm/dL Hct (34.0-46.0) % POC Glucose (mg/dL) 143 H 125 H 181 H (70-110) mg/dL Magnesium (1.6-2.3) mg/dL 12/08/23 12/08/23 12/08/23 Range/Units 05:58 08:46 08:46 RBC 2.73 L (3.80-5.40) m/uL Hgb 8.6 L (11.4-16.0) gm/dL Hct 27.0 L (34.0-46.0) % POC Glucose (mg/dL) 138 H (70-110) mg/dL Magnesium 1.4 L (1.6-2.3) mg/dL
[2023-12-08 11:40] LABS: Glucose,Whole Blood 147 mg/dL (70-110)
--- NOTE | 2023-12-08 12:26 | P.DS ---
Providers Date of admission: 11/30/23 03:25 Expected date of discharge: 12/08/23 Attending physician: Suze Carrizales DO Consults: 11/30/23 03:25 Consult Physician Routine Consulting Provider: Surya Hall Consult Reason/Comments: medicine consult per ortho request Do you want consulting provider notified?: Yes 12/02/23 07:07 Consult Physician Routine Consulting Provider: Kishore Lang Consult Reason/Comments: Retention with [place] Do you want consulting provider notified?: Yes 12/05/23 12:37 Consult Physician Urgent Consulting Provider: Ming Johnson Consult Reason/Comments: CHF Do you want consulting provider notified?: Yes Primary care physician: Ruy Carmella [facility] Hospital Course: Discharge Diagnosis: Diastolic CHF exacerbation. Patient underwent successful IV diuresis. Cardiology evaluated increasing home Lasix dose from 20 mg daily to 40 mg twice daily and discontinuing Coumadin and starting patient on Eliquis 5 mg twice daily. Status post fixation of right intertrochanteric hip fracture with short intramedullary hip screw. Acute postoperative blood loss anemia, greater than expected. Stable at this time. Hemoglobin 8.6 on day of discharge. Iron deficiency anemia. Continue ferrous sulfate 325 mg daily. CAD status post permanent pacemaker placement in 2003. Patient to continue lisinopril 10 mg daily, sotalol 120 mg daily, amlodipine 10 mg daily, and atorvastatin 20 mg daily. Paroxysmal atrial fibrillation status postcardiac ablation. Cardiology discontinuing Coumadin and starting patient on Eliquis 5 mg twice daily. Hypertension.Started on lisinopril 10 mg daily per cardiology, also on sotalol 120 twice daily, and amlodipine 10 mg daily. Hyperlipidemia. Patient to continue atorvastatin 20 mg daily. Hypomagnesemia . Replaced. Patient discharged on oral magnesium supplement with Mag-Ox 400 mg daily. Pulmonary hypertension Pulmonary fibrosis. Recommend continued use of incentive spirometry until back at full baseline activity. Obstructive sleep apnea CPAP dependent. Continue CPAP at night, DuoNeb as needed Type II [id number] diabetes mellitus. Continue Januvia 50 mg daily. Hospital Course: Patient is a very pleasant 78-year-old female with a past medical history of CAD status post permanent pacemaker placement in 2003, congestive heart failure, paroxysmal atrial fibrillation status postcardiac ablation on anticoagulation with Coumadin, hypertension, hyperlipidemia, pulmonary hypertension, obstructive sleep apnea CPAP dependent, and type II [id number] diabetes mellitus. She was transferred to our facility from [facility] secondary to intertrochanteric right hip fracture resulting from mechanical trip and fall. She is currently admitted under orthopedic surgery team with Dr. Hall and we were consulted for medical clearance and medical management throughout her ho spitalization. Vital signs reviewed. Blood pressure currently 144/77, heart rate 72, respiratory rate 18, temp 98.1 F, and SpO2 of 96% on room air. Morning labs reviewed. CBC showing stable hemoglobin of 12.1 and mild thrombocytopenia with platelet count of 142. Coagulation profile shows therapeutic INR at 2.6 (which is therapeutic for patient's goal level however places patient at increased risk of bleeding during and after surgical procedure). BMP showing mild hyperchloremia with chloride of 108 and hyperglycemia with glucose of 154 otherwise unremarkable. EKG completed showing sinus rhythm at 76 bpm with nonspecific T wave abnormalities but showing no significant T wave or ST abnormalities concerning for acute ischemia. Chest x- ray reviewed and was negative for acute cardiopulmonary process. Patient was admitted under orthopedic surgery team and we were consulted for medical management. Patient underwent surgical repair of right intertrochanteric femoral fracture with intramedullary nailing with Dr. Hall on 11/30/2023. She is status post 1 unit of PRBCs secondary to acute postoperative blood loss anemia. Patient also found to have iron deficiency anemia and received a 3-day course of IV iron supplementation and discharged on ferrous sulfate 325 mg daily. Cardiology evaluated. Made some medication changes as stated above. Discontinued Coumadin and starting patient on Eliquis 5 mg twice daily. Patient cleared from cardiac perspective for discharge, she was cleared from orthopedic surgery standpoint for discharge. She is medically stable for discharge to rehab facility at this time. 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 She is being discharged to [facility] swing bed for inpatient rehab. Physical exam: Patient seen and examined at bedside. No acute events overnight. Denies any chest pain, shortness of breath, cough, abdominal pain, nausea, vomiting, urinary or bowel complaints. She reports mild pain to her right hip otherwise states that she is feeling well this morning. Vital signs reviewed and stable. General: Nontoxic, no distress and appears stated age. Obese. Derm: Skin warm and dry, normal coloration for ethnicity. Head: Atraumatic, normocephalic and symmetric. Eyes: EOMs intact, no lid lag, and anicteric sclera Mouth: no lip lesions, mucus membranes moist Cardiovascular: regular rate and rhythm with normal S1S2, soft systolic murmur, positive posterior tibial pulses bilaterally, and cap refill < 2 seconds. Pacemaker left anterior chest. Lungs: Respirations even, regular, and unlabored on supplemental oxygen. Lungs CTA bilaterally, no rhonchi, no rales, no wheezing, and no accessory muscle usage. Abdominal: soft, nontender to palpation, no guarding, no appreciable organomegaly Ext: No gross muscle atrophy, no edema, no contractures. Movement and sensation intact. Postsurgical dressing intact right lateral hip recently ch anged by RN. Patient with mild bruising to right lateral hip and thigh with moderate swelling, no signs of hematoma formation. Neuro: Speech clear, face symmetrical and CN II-XII grossly intact with no noted focal neuro deficits Psych: Alert and oriented to person, place, time, and situation. Appropriate and pleasant affect. A total of 38 minutes of time were spent preparing this complex discharge summary. Pt was discharged on 12/08/2023 at 11:51 AM Patient was seen independently by Nurse Practitioner. This document was prepared using [employer] dictation software. Please allow for errors in landscape designer while rare they do occur. I reviewed the documentation as provided by the DARLENE above, who is the original author of this note. I agree with the documented assessment and plan, with the following changes: none Patient Condition at Discharge: Stable Plan - Discharge Summary Discharge Rx Participant: Yes New Discharge Prescriptions: New HYDROcodone/APAP 7.5-325MG [[place] 7.5-325] 1 - 2 tab PO Q6HR PRN #32 tab PRN Reason: Pain Omeprazole 20 mg PO DAILY #30 tab Sennosides-Docusate Sodium [Senokot-S] 1 tab PO BID #60 tablet Ferrous Sulfate [Iron (65 MG Elemental)] 325 mg PO W/LUNCH tab Furosemide [Lasix] 40 mg PO BID@0900,1600 tab lisinopriL [Zestril] 10 mg PO DAILY tab Ipratropium-Albuterol Nebulize [Duoneb 0.5 mg-3 mg/3 ml Soln] 3 ml INHALATION RT-Q2H PRN each PRN Reason: Shortness Of Breath Or Wheezing Continue Mirabegron [Myrbetriq] 50 mg PO DAILY allopurinoL 200 mg PO DAILY Escitalopram [Lexapro] 10 mg PO DAILY Brimonidine Tartrate [Alphagan P 0.2% Ophth Soln] 1 drops LEFT EYE TID amLODIPine [Norvasc] 10 mg PO DAILY Sotalol [Betapace] 120 mg PO BID Atorvastatin [Lipitor] 20 mg PO DAILY Magnesium Oxide 400 mg PO BID-W/MEALS traZODone HCL [Desyrel] 50 mg PO HS Folic Acid 1 mg PO DAILY Alendronate Sodium [Fosamax] 70 mg PO SCOTT buPROPion XL [Wellbutrin XL] 150 mg PO DAILY sitaGLIPtin [Januvia] 50 mg PO DAILY busPIRone HCL [Buspar] 7.5 mg PO BID Gabapentin 600 mg PO BID@0900,2100 #6 cap Gabapentin 300 mg PO DAILY@1400 #3 cap Discontinued Warfarin [Coumadin] 5 mg PO SUTUWETHSA Warfarin [Coumadin] 2.5 mg PO MOFR Furosemide [Lasix] 20 mg PO DAILY Discharge Medication List Alendronate Sodium [Fosamax] 70 mg PO SCOTT 11/02/22 [History] Folic Acid 1 mg PO DAILY 11/02/22 [History] Magnesium Oxide 400 mg PO BID-W/MEALS 11/02/22 [History] Mirabegron [Myrbetriq] 50 mg PO DAILY 11/02/22 [History] allopurinoL 200 mg PO DAILY 11/02/22 [History] traZODone HCL [Desyrel] 50 mg PO HS 11/02/22 [History] Atorvastatin [Lipitor] 20 mg PO DAILY 11/30/23 [History] Brimonidine Tartrate [Alphagan P 0.2% Ophth Soln] 1 drops LEFT EYE TID 11/30/23 [History] Escitalopram [Lexapro] 10 mg PO DAILY 11/30/23 [History] HYDROcodone/APAP 7.5-325MG [[place] 7.5-325] 1 - 2 tab PO Q6HR PRN #32 tab 11/30/23 [Rx] Omeprazole 20 mg PO DAILY #30 tab 11/30/23 [Rx] Sennosides-Docusate Sodium [Senokot-S] 1 tab PO BID #60 tablet 11/30/23 [Rx] Sotalol [Betapace] 120 mg PO BID 02/18/24 [History] amLODIPine [Norvasc] 10 mg PO DAILY 11/30/23 [History] buPROPion XL [Wellbutrin XL] 150 mg PO DAILY 11/30/23 [History] busPIRone HCL [Buspar] 7.5 mg PO BID 11/30/23 [History] sitaGLIPtin [Januvia] 50 mg PO DAILY 11/30/23 [History] Ferrous Sulfate [Iron (65 MG Elemental)] 325 mg PO W/LUNCH tab 12/08/23 [Rx] Furosemide [Lasix] 40 mg PO BID@0900,1600 tab 12/08/23 [Rx] Gabapentin 300 mg PO DAILY@1400 #3 cap 12/08/23 [Rx] Gabapentin 600 mg PO BID@0900,2100 #6 cap 12/08/23 [Rx] Ipratropium-Albuterol Nebulize [Duoneb 0.5 mg-3 mg/3 ml Soln] 3 ml INHALATION RT-Q2H PRN each 12/08/23 [Rx] lisinopriL [Zestril] 10 mg PO DAILY tab 12/08/23 [Rx] Follow up Appointment(s)/Referral(s): Ruy Weir MD [Primary Care Provider] - 1-2 days Surya Hall MD [Medical Doctor] - 12/18/23 9:45 am Patient Instructions/Handouts: Fall Prevention for Older Adults (DC), Intramedullary Nailing (DC) Activity/Diet/Wound Care/Special Instructions: RESUME COUMADIN PREVIOUSLY PRESCRIBED 1. Weight-bear as tolerated on your operative extremity unless instructed otherwise. Use a walker or other assistive device to ambulate. 2. Leave surgical dressing in place. If your dressing becomes saturated with blood, there is drainage, or the dressing becomes loose please contact the office. 3. It is okay to shower with your surgical dressing, but do not submerge in water (no hot tubs, bath's, swimming etc.) 4. Make sure to take her blood clot prevention medication as prescribed (aspirin, Eliquis, Xarelto, and Plavix are commonly prescribed medications for blood clot prevention) 5. While taking [place] or Percocet for pain make sure you're taking a stool softener (Colace) and drink lots of water. 6. Keep all follow-up appointments as scheduled. You will usually be seen in 1-2 weeks following surgery. 7. Please contact the office with any questions or concerns [phone] Continue ferrous sulfate 325 mg daily. Recommend rehab facility repeating CBC in 3 days for continued close monitoring of hemoglobin levels. Home Lasix dose was increased from 20 mg daily up to 40 mg twice daily. Recommend close monitoring of your renal function and electrolytes, recommend rehab facility repeating BMP and magnesium levels in 3 days and for follow-up with your asphalt mixing machine operator in 1 to 2 weeks. Discharge Disposition: TRANSFER TO SNF/ECF
[2023-12-08] MEDS: FERROUS SULFATE 325 MG TAB PO SCH (12:43)
[2023-12-08] MEDS: MAGNESIUM SULFATE-D5W PMX 1 GM in DEXTROSE/WATER 1 100ML.BAG IVPB SCH (12:48)
[2023-12-08 14:39] VITALS: BP 120/64; PULSE 60; RESP 17; TEMP 98.6
[2023-12-08] MEDS ORDERED: WARFARIN 5 MG TAB PO ONE (18:00)
== END 2023-12-08 16:14 | DRG 480 ==
LOC: EC 02:35 → 4SSUR 03:25
PROVIDERS: ADMIT Internal Medicine; ATTEND Internal Medicine
PROC: 0QS636Z Reposition Right Upper Femur with Intramedullary Internal Fixation Device, Percutaneous Approach (ICD-10-PCS; principal; 2023-11-30 16:00)
PROC: 30233N1 Transfusion of Nonautologous Red Blood Cells into Peripheral Vein, Percutaneous Approach (ICD-10-PCS; 2023-12-03)
DX: S72.141A Displaced intertrochanteric fracture of right femur, initial encounter for closed fracture (principal); I50.33 Acute on chronic diastolic (congestive) heart failure; D62 Acute posthemorrhagic anemia; N39.0 Urinary tract infection, site not specified; Z68.41 Body mass index [BMI] 40.0-44.9, adult; W01.0XXA Fall on same level from slipping, tripping and stumbling without subsequent striking against object, initial encounter; D50.9 Iron deficiency anemia, unspecified; D69.6 Thrombocytopenia, unspecified; D72.819 Decreased white blood cell count, unspecified; E66.01 Morbid (severe) obesity due to excess calories; E78.5 Hyperlipidemia, unspecified; E83.42 Hypomagnesemia; E87.8 Other disorders of electrolyte and fluid balance, not elsewhere classified; G47.33 Obstructive sleep apnea (adult) (pediatric); I11.0 Hypertensive heart disease with heart failure; I25.10 Atherosclerotic heart disease of native coronary artery without angina pectoris; I27.20 Pulmonary hypertension, unspecified; I48.0 Paroxysmal atrial fibrillation; N28.9 Disorder of kidney and ureter, unspecified; M19.90 Unspecified osteoarthritis, unspecified site; R32 Unspecified urinary incontinence; R33.9 Retention of urine, unspecified; I49.5 Sick sinus syndrome; J84.10 Pulmonary fibrosis, unspecified; Z87.442 Personal history of urinary calculi; Y93.01 Activity, walking, marching and hiking; Y92.000 Kitchen of unspecified non-institutional (private) residence as the place of occurrence of the external cause; Z79.01 Long term (current) use of anticoagulants; Z79.83 Long term (current) use of bisphosphonates; Z79.84 Long term (current) use of oral hypoglycemic drugs; Z79.899 Other long term (current) drug therapy; Z82.49 Family history of ischemic heart disease and other diseases of the circulatory system; Z87.891 Personal history of nicotine dependence; Z95.0 Presence of cardiac pacemaker; Z88.1 Allergy status to other antibiotic agents; Z88.0 Allergy status to penicillin
CPT/HCPCS: 71045; 73502; 80048; 80053; 83036; 83540; 83550; 83735; 83880; 84484; 85025; 85027; 85610; 85730; 86850; 86900; 86901; 86920; 93005; 93306; 94640; 94660; 94760; 96361; 96374; 96375; 96376; 99285